=== PATIENT | male | born 1970 | race Caucasian/White ===

== ENCOUNTER 2019-04-30 17:01 | Emergency (ER) | payer OTHER, SELFPAY ==
--- NOTE | ~2019-04-30 | XR_ITS ---
XR knee RT 2V 04/30/2019 17:51 Indication: Right knee pain. Possible hyperextension injury. Procedure: 2 views right knee Comparison: No prior studies for comparison. Findings: There is moderate joint effusion. There is prepatellar soft tissue swelling. No acute fract ure or traumatic malalignment. No foreign bodies. Impression: 1: No acute fracture. 2: Moderate joint effusion. Prepatellar soft tissue swelling. Reviewed, dictated and finalized at location A. SPOOLER Impression: 1: No acute fracture. 2: Moderate joint effusion. Prepatellar soft tissue swelling.
[2019-04-30 17:19] VITALS: BP 182/100; PULSE 120; RESP 20; TEMP 36.3; O2SAT 98
[2019-04-30] MEDS: MORPHINE SULFATE 4 MG/ML INJ IV PUSH (17:33)
--- NOTE | 2019-04-30 18:08 | PC.NURSE ---
ERp in to discuss test results c pt. and need for f/u c FMD or ortho Dr. MARTINEZ discussed c pt and f/u instructions given.
--- NOTE | 2019-04-30 18:10 | ED.LOWEXIN ---
HPI - Extremity Injury (Lower) General Chief Complaint: Extremity Injury, Lower Stated Complaint: leg pain Source: patient Limitations: no limitations History of Present Illness HPI Narrative: 49-year-old patient presents with right knee pain and swelling after he misstepped coming down a ladder causing inversion of his right knee, currently unable. able to bear weight as having tenderness with palpation and with movement of the wrist swelling with the arm medial aspect of his right knee, rates his pain at 10/10 MD complaint: knee injury Onset (ago): hour(s) Injury: Right: knee Type of Injury: inversion and eversion Place: home Severity: severe Severity scale (1-10): >10 Relieving factors: cold therapy, immobilization and rest Exacerbating factors: weight bearing, movement and palpation Context: fall Associated symptoms: swelling and unable to bear weight Related Data Allergies Allergy/AdvReac Type Severity Reaction Status Date / Time bees Allergy Unknown severe Uncoded 09/24/16 16:04 swelling Review of Systems Review of Systems: All systems reviewed & are unremarkable except as noted in HPI and below PMFSH Past Medical History Medical History HTN (hypertension) Social History Social History Smoking packs per day: 1 Smoking cigarettes per day: 20.0 Smoking status: Current every day smoker Alcohol intake: current Alcohol use details: drinks 12 beers/day Substance use: never Living arrangements: with family Exam Const: General: no acute distress and alert Nutritional Appearance: well nourished Orientation/consciousness: patient oriented x3 HENMT: Head: normal to inspection Eyes: Conjunctivae: conjunctivae normal Pupils: Equal, round and reactive pupils present Neck: Neck: normal visual inspection and no lymphadenopathy Resp: Effort & Inspection: normal respiratory effort Cardio: Rate: regular rate Rhythm: regular rhythm GI: GI Palp: Yes Soft to palpation Skin: General skin exam: normal color Rashes: no rashes Neuro: General: patient oriented x3 Extrem: Other: right knee pain with some lateral and medial movement and with extension with medial swelling point tenderness Psych: Mental Status: mental status grossly normal Course Vital Signs Vital signs: Vital Signs Temperature 36.3 C L 04/30/19 17:19 Pulse Rate 120 H 04/30/19 17:19 Respiratory Rate 20 04/30/19 17:19 Blood Pressure 182/100 H 04/30/19 17:19 Pulse Oximetry 98 04/30/19 17:19 Temperature 36.3 C L 04/30/19 17:19 Pulse Rate 120 H 04/30/19 17:19 Respiratory Rate 04/30/19 17:19 Blood Pressure 182/100 H 04/30/19 17:19 Pulse Oximetry 98 04/30/19 17:19 Critical Care Time Critical Care Time Critical Care Time: No Discharge Plan Discharge Clinical Impression: Strain of right knee and leg Qualifiers: Encounter type: initial encounter Qualified Code(s): S86.911A - Strain of unspecified muscle(s) and tendon(s) at lower leg level, right leg, initial encounter Patient Disposition: Home, Self-Care Condition: Stable Instructions: Antibiotic Form, Knee Sprain (ED) Additional Instructions: follow-up with primary care physician within the next 2 to 3 days for further evaluation and treatment. A keep leg elevated can apply ice to affected knee take medicine as prescribed. Prescriptions: New oxycodone-acetaminophen [Percocet] 5-325 mg tablet 1 tablet PO Q6H PRN (Reason: pain) Qty: 20 RF: 0 Follow-up/Referrals: PHYSICIAN NOT ON STAFF,NONSTAFF [Primary Care Provider] - Time of Disposition: 18:16
[2019-04-30] MEDS: HYDROMORPHONE HCL 2 MG/ML VIAL IV PUSH (18:20)
[2019-04-30 18:32] VITALS: BP 160/89; PULSE 82; RESP 18; O2SAT 98
--- NOTE | 2019-04-30 18:35 | PC.NURSE ---
Pt. reports feeling itchy p given Dilaudid. Order obtained from ERP. Pt. reports it helped c pain, but now feels very itchy .
== END 2019-04-30 19:05 | disposition home or self-care (01) ==
PROVIDERS: Emergency Provider Emergency Medicine
DX: S86.911A Strain of unspecified muscle(s) and tendon(s) at lower leg level, right leg, initial encounter (principal); X58.XXXA Exposure to other specified factors, initial encounter
CPT/HCPCS: 73560; 96374; 96375; 99283; 99284; J1170; J1200; J2270; L1830

== ENCOUNTER 2019-05-15 16:20 | Outpatient (CLI) | payer OTHER, SELFPAY ==
--- NOTE | ~2019-05-15 | MR_ITS ---
EXAMINATION: MR knee RT wo/w con DATE: 05/15/2019 18:22 INDICATION: Right knee pain TECHNIQUE: Magnetic resonance imaging (MRI) of the right knee was performed without intravenous contr ast. Sequences included coronal PD-weighted FSE, coronal PD-weighted FS FSE, sagittal T2-weighted FS E, sagittal PD-weighted FS FSE, pre and postcontrast sagittal T1-weighted FS FSE, axial PD weighted f at saturated FSE and postcontrast axial T1-weighted FS FSE. COMPARISON: None. FINDINGS: Motion artifact or blurring to some degree on the coronal and noncontrast enhanced sagittal sequences which mildly limits evaluation, particularly of the articular cartilage. Medial compartment: Complex tear of the meniscus contacting the inferior articular surface at the posterior horn but this includes a longitudinal oblique tear plane. Partial-thickness cartilage loss along the posterior maile ghtbearing medial femoral condyle. Lateral compartment: Lateral meniscus is normal. Articular cartilage is normal. Patellofemoral compartment: Small region of partial-thickness chondral ulceration at the central aspect of the medial trochlea. D eep chondral ulceration with full-thickness fissuring along the inferomedial margin of the medial pat ellar facet. Tiny focus of underlying subarticular edema. Ligaments and tendons: Anterior and posterior cruciate ligaments are normal. The medial collateral ligament and fibular anayeli ateral ligament complex are normal. The extensor mechanism is normal. The visualized medial and later al hamstring tendons as well as the iliotibial band are normal. Fluid: Moderate-sized knee joint effusion. No loose osteochondral bodies identified. Small to moderate-sized Castro's cyst measuring 4.5 x 1.8 x 1.1 cm in maximal dimensions. Osseous/other: Prominent marrow edema and enhancement along the low signal intensity nondisplaced fracture lines ext ending within the intramedullary space underlying the lateral tibial plateau and intercondylar eminen ce. There appears to be involvement without displacement or incongruity of the nonarticular cortex at mid anterior aspect of the proximal tibia. Marrow edema without discrete fracture line consistent wi th bone contusions along the distal side of the physis extending across the femoral condyles. No path ologic marrow replacing process. IMPRESSION: 1. Mildly comminuted nondisplaced primarily intramedullary impaction fractures at the proximal right tibia and bone contusion along the physis of the medial and lateral femoral condyles. 2. Complex tear at the posterior horn of the medial meniscus with mild osteoarthritis in the medial c ompartment. 3. Small regions of moderate to high-grade chondromalacia at the medial trochlea and lateral patellar facet. 4. Likely reactive moderate sized right knee joint effusion. 5. Moderate-sized Castro's cyst. Reviewed, dictated and finalized at location A. NCILIATION CLERK IMPRESSION: 1. Mildly comminuted nondisplaced primarily intramedullary impaction fractures at the proximal right tibia and bone contusion along the physis of the medial a nd lateral femoral condyles. 2. Complex tear at the posterior horn of the medial meniscus with mild osteoart hritis in the medial compartment. 3. Small regions of moderate to high-grade chondromalacia at the medial trochle a and lateral patellar facet. 4. Likely reactive moderate sized right knee joint effusion. 5. Moderate-sized Castro's cyst.
--- NOTE | ~2019-05-15 | XR_ITS ---
EXAMINATION: XR knee RT min 4V DATE: 05/15/2019 17:01 INDICATION: Right knee pain TECHNIQUE: Four views of the right knee were obtained. COMPARISON: None. FINDINGS: Alignment is normal. There is lucency in the medial tubercle of the intercondylar eminence of the tibia. No additional suspected fracture is identified. A moderate size knee joint effusion is present. Soft tissues are unremarkable. IMPRESSION: 1. Likely nondisplaced fracture of the medial tubercle of the intercondylar eminence of the tibia wit h moderate size joint effusion. Reviewed, dictated and finalized at location A. ENT SERVICE SPECIALIST IMPRESSION: 1. Likely nondisplaced fracture of the medial tubercle of the intercondylar mesha nence of the tibia with moderate size joint effusion.
[2019-05-15 17:18] LABS: Estimated Glomerular Filt Rate > 60
[2019-05-21 06:51] LABS: Blood Urea Nitrogen < 3 mg/dL (9-20)
== END 2019-05-15 16:21 | disposition home or self-care (01) ==
LOC: ANHIMG 16:25
PROVIDERS: Visit Provider Orthopaedic Surgery
DX: M25.461 Effusion, right knee (principal); M71.21 Synovial cyst of popliteal space [Baker], right knee; S83.231A Complex tear of medial meniscus, current injury, right knee, initial encounter; X58.XXXA Exposure to other specified factors, initial encounter
CPT/HCPCS: 73564; 73723; A9577

== ENCOUNTER 2019-07-19 14:33 | Emergency (ER) | payer SELFPAY ==
--- NOTE | ~2019-07-19 | XR_ITS ---
EXAMINATION: XR foot LT min 3V DATE: 07/19/2019 15:44 INDICATION: Swelling and tenderness at the metatarsals of the left foot. TECHNIQUE: Dorsoplantar, two oblique and lateral views of the left foot were obtained. COMPARISON: None. FINDINGS: Soft tissue swelling at the dorsal aspect of the forefoot. Bone alignment is normal. No fracture. Mil d osteoarthritis with relatively preserved joint space but tiny marginal osteophytes at the first met atarsophalangeal joint. Remaining joint spaces appear relatively preserved. No cortical erosions or p eriosteal reaction. IMPRESSION: 1. Mild osteoarthritis at the first metatarsophalangeal joint. No acute osseous abnormality. Reviewed, dictated and finalized at location A.
[2019-07-19 14:41] VITALS: BP 152/93; PULSE 130; RESP 20; TEMP 36.7; O2SAT 96
--- NOTE | 2019-07-19 15:20 | ED.EXTPRO ---
HPI - Extremity Problem General Chief complaint: Extremity Problem,Nontraumatic Stated complaint: left foot pain to thigh Source: patient Mode of arrival: ambulatory Limitations: no limitations History of Present Illness HPI Narrative: 49 y.o. male c/o swelling of his left foot and leg x 4 - 5 days with associated minor dorsal foot tenderness. He stubbed a left foot toe the day prior to onset. Today he developed discomfort described as soreness, #2-3/10 in the left medial proximal thigh. Nothing changes his thigh discomfort. Laying supine decreases the swelling; standing makes it worse. He denies chest pain/shortness of breath. There is no personal or family hx of blood clots. He has not seen a doctor in 3 -4 years (although had a colonoscopy a year ago which showed a few small benign lesions - per patient) His fiance's father recently from a P.E.; she brought pt. in to be checked out. He has a long hx of daily alcohol abuse. He injured his right knee in late April resulting in limping for about 6 weeks. He hasn't worked since April; pretty much just sits around and drinks . No recent travel. Hx of hypertension and tachycardia. Had been on lisinopril 20 mg daily. Stopped for no good reason 1 year ago. Related Data Allergies Allergy/AdvReac Type Severity Reaction Status Date / Time No Known Allergies Allergy Verified 07/19/19 14:50 Review of Systems Constitutional: Constitutional: Denies chills and Denies fever(s) Cardiovascular: Cardiovascular: Denies radiating jaw, neck or arm pain Respiratory: Comments: chronic daily cough productive of clear sputum; no recent change. Gastrointestinal: Comments: chronic diarrhea. No recent change. Genitourinary: Comments: Periodic problems with urinary hesitancy Musculoskeletal: Comments: Right knee pain - stable Integumentary/Breasts: Skin/Breast: Denies rash PMFSH Past Medical History Medical History (Updated 07/19/19 @ 17:03 by Paolo Herbert MD) Alcohol abuse Elevated liver function tests Fatty liver Hypertension Nicotine dependence Family History Family History (Updated 07/19/19 @ 15:47 by Paolo Herbert MD) Father Colon polyp Mother Colon polyp Social History Social History (Updated 07/19/19 @ 15:48 by Paolo Herbert MD) Smoking status: Current every day smoker Tobacco type: cigarettes Alcohol intake: current Drinks per week: 50 Alcohol use details: Over 10 drinks daily including beer and whiskey. Gender identity (if verbalized by the patient): Male Exam Narrative: Exam Narrative: Sitting up in bed. Moves about without hesitation or apparent pain. Const: General: no acute distress Nutritional Appearance: obese HENMT: Mouth: Yes moist mucous membranes Eyes: Other: no scleral icterus Neck: Neck: no lymphadenopathy Chest: Chest palpation & inspection: normal inspection of the chest Resp: Effort & Inspection: not tachypneic Auscultation: clear to auscultation bilaterally Cardio: Rate: tachycardic Rhythm: regular rhythm GI: Inspection: distended GI Palp: Yes Tenderness to palpation present (GI) (tender right mid-clavicular subcostal region. ), No Guarding due to palpation present (GI), No Rigid due to palpation, No Hernia present and No Rebound tenderness present Percussion: Yes normal to percussion Auscultation: Hypoactive bowel sounds present Other: liver percusses 3 cm subcostal , mid-clavicular line. No palpable mass Back/Spine/Pelvis: Back: no CVA tenderness Skin: Rashes: no rashes Neuro: General: patient oriented x3 and moves all extremities Extrem: Other: 2+ left pretibial edema 3+ pedal edema. Tender along the proximal 1/4 of the right adductor muscles. No overlying redness or swelling. No inguinal nodes or tendernesss. no posterior thigh or calf swelling, cords or tenderness. Minor tenderness over distal anterior tibia. Psych: Appearance: grossly normal Mental Status: mental status g
--- NOTE | 2019-07-19 15:45 | PC.NURSE ---
Water provided to pt per verbal order Dr Herbert. HR rechecked, remains 130. Pt states my heart rate is always high, like over [address] Dr Herbert aware.
[2019-07-19 16:00] LABS: Hematocrit 41.3 % (40.0-54.0); Hemoglobin 14.8 g/dL (14.0-18.0); Mean Corpuscular HGB Conc 35.8 g/dL (32.0-36.0); Mean Corpuscular Hemoglobin 38.7 pg (27.0-31.0); Mean Corpuscular Volume 108.1 fL (78.0-102.0); Mean Platelet Volume 8.9 fl (8.7-11.0); Platelet Count Result 171 K/mm3 (150-420); Red Blood Count 3.82 M/mm3 (4.70-6.10); Red Cell Distribution Width 15.9 % (11.6-14.4); White Blood Count 8.4 K/mm3 (4.8-10.8)
[2019-07-19 16:17] LABS: INR 1.2; Partial Thromboplastin Time 27.5 SEC (22.3-31.6); Prothrombin Time 12.6 Seconds (9.64-11.0)
[2019-07-19 16:18] LABS: Alanine Aminotransferase 71 U/L (16-63); Albumin Level 3.3 g/dL (3.4-5.0); Alkaline Phosphatase 174 U/L (46-116); Aspartate Amino Transferase 167 U/L (15-37); Bilirubin,Total 0.9 mg/dL (0.00-1.00); Blood Urea Nitrogen 2 mg/dL (7-18); Calcium 8.4 mg/dL (8.5-10.1); Carbon Dioxide 27 mmol/L (21-32); Chloride 97 mmol/L (98-108); Estimated CRCL calculation 115 ml/min; Estimated Glomerular Filt Rate > 60; Glucose 109 mg/dL (70-99); Osmolality Calculated 279 mOsm/kg (285-295); Sodium 136 mmol/L (136-145); Total Protein 6.8 g/dL (6.4-8.2)
[2019-07-19 16:35] LABS: D Dimer 1.67 mg/L (0.19-0.50)
[2019-07-19 16:40] VITALS: BP 181/115; PULSE 122; RESP 20; O2SAT 96
--- NOTE | 2019-07-19 16:41 | PC.NURSE ---
Pt states my blood pressure has been running 180/120 lately . Previously reported noncompliance with HTN medications.
[2019-07-19 16:44] LABS: Magnesium 2.1 mg/dL (1.8-2.4)
[2019-07-19] MEDS: POTASSIUM CHLORIDE 20 MEQ TABLET 40 MEQ PO (16:59)
[2019-07-19] MEDS: APIXABAN 2.5 MG TABLET 10 MG PO (16:59)
[2019-07-19 17:20] VITALS: BP 184/124; PULSE 124; RESP 20; O2SAT 97
--- NOTE | 2019-07-19 17:29 | PC.NURSE ---
BP 184/124 at time of discharge. Pt instructed to take previously prescribed Lisinopril that he has at home once he returns to his house. MD gill.
== END 2019-07-19 17:20 | disposition home or self-care (01) ==
PROVIDERS: Emergency Provider Family Medicine
DX: R79.1 Abnormal coagulation profile (principal); M79.89 Other specified soft tissue disorders; I10 Essential (primary) hypertension
CPT/HCPCS: 36415; 73630; 80053; 83735; 85027; 85380; 85610; 85730; 99283; 99284; A9270

== ENCOUNTER 2019-07-20 08:24 | Outpatient (CLI) | payer SELFPAY ==
--- NOTE | ~2019-07-20 | US_ITS ---
EXAMINATION: US venous doppler [facility] DATE: 07/20/2019 09:12 INDICATION: Left lower limb pain and swelling TECHNIQUE: Grayscale ultrasound images without and with compression and Doppler ultrasound images of the left lower extremity veins were obtained. COMPARISON: 02/12/2017 FINDINGS: The visualized portions of left common femoral vein, profunda (deep) femoral vein, femoral vein, popl iteal vein, peroneal veins, posterior tibial veins, gastrocnemius vein and greater saphenous vein out flow are patent. IMPRESSION: 1. No deep venous thrombosis in the left lower limb. Reviewed, dictated and finalized at location A.
== END 2019-07-20 08:25 | disposition home or self-care (01) ==
PROVIDERS: Visit Provider Family Medicine
DX: M79.89 Other specified soft tissue disorders (principal)
CPT/HCPCS: 93971; A9270

== ENCOUNTER 2019-07-22 08:26 | Outpatient (CLI) | payer SELFPAY ==
--- NOTE | ~2019-07-22 | US_ITS ---
EXAMINATION: US right upper quadrant DATE: 07/22/2019 09:17 INDICATION: Alcoholic fatty liver. Elevated liver enzymes. TECHNIQUE: Multiple grayscale and Doppler ultrasound images of the abdomen were obtained. COMPARISON: CT dated 01/14/2019 and abdominal ultrasound dated 02/12/2017 FINDINGS: Region of the pancreas is not clearly visualized. Liver has normal contour, with a smooth surface. Th ere is increased parenchymal echogenicity and coarsened echotexture consistent with diffuse hepatic s teatosis. No liver lesion identified although sensitivity is decreased by poor acoustic penetration d ue to the hepatic steatosis. No intrahepatic biliary duct dilation suspected. Portal venous flow was seen in the hepatopetal, normal direction and has normal Doppler waveform. The gallbladder is mildly dilated with mild wall thickening. There is no cholelithiasis. The common bile duct measures 8 mm, which is mildly dilated. IMPRESSION: 1. Diffuse hepatic steatosis. 2. Mildly dilated gallbladder with mild wall thickening but without cholelithiasis or sonographic Mur phy sign to suggest acute cholecystitis this could be related to either chronic liver disease or othe r generalized edema forming states. 3. Mildly dilated common bile duct which measures up to 8 mm both without intrahepatic biliary ductal dilation. No evident obstructing stone or mass. If clinically indicated MRCP could be obtained for f urther evaluation. Reviewed, dictated and finalized at location A. IMPRESSION: 1. Diffuse hepatic steatosis. 2. Mildly dilated gallbladder with mild wall thickening but without cholelithia sis or sonographic Elizabeth sign to suggest acute cholecystitis this could be rel ated to either chronic liver disease or other generalized edema forming states. 3. Mildly dilated common bile duct which measures up to 8 mm both without intra hepatic biliary ductal dilation. No evident obstructing stone or mass. If clini raymond indicated MRCP could be obtained for further evaluation.
== END 2019-07-22 08:27 | disposition home or self-care (01) ==
LOC: CHSIMG 08:27
PROVIDERS: PCP Nurse Practitioner Family; Visit Provider Nurse Practitioner Family
DX: K70.0 Alcoholic fatty liver (principal)
CPT/HCPCS: 76705

== ENCOUNTER 2019-08-05 16:07 | Inpatient (IN) | payer MEDICAID, SELFPAY ==
--- NOTE | ~2019-08-05 | US_ITS ---
EXAMINATION: US paracentesis abd w/image EXAM DATE: 08/05/2019 19:09 INDICATION: Ascites. TECHNIQUE: The procedure and its risks and benefits were discussed with the patient. Alternatives als o discussed. Potential risks discussed included bleeding and infection. The skin was prepped and drap ed in sterile fashion. 5 cc of 1% lidocaine was used for local anesthesia. Under ultrasound guidance, a 5 Fr catheter with trochar was advanced into the ascites in the left lower quadrant. Fluid was asp irated into vacuum bottles. A total of 1750 mL straw colored fluid was taken in total. The catheter was removed, and a dressing was applied. There were no immediate complications. FINDINGS: Ultrasound images demonstrate ascites. IMPRESSION: Status post ultrasound-guided paracentesis. Reviewed, dictated and finalized at location A.
--- NOTE | ~2019-08-05 | CT_ITS ---
EXAMINATION: CT chest abdomen pelvis w con DATE: 08/06/2019 13:25 INDICATION: COPD. Cirrhosis and ascites with abdominal swelling. TECHNIQUE: Computed tomography (CT) of the chest, abdomen, and pelvis was performed with 100 mL Omnip aque-350 intravenous contrast. Automated exposure control and iterative reconstruction technique were employed. The dose-length product was 1115.01 mGy-cm. COMPARISON: CT abdomen and pelvis dated 01/14/2019 and chest dated 02/12/2017 FINDINGS: CHEST CT: Mild right basilar atelectasis. Additional mild discoid atelectasis in the right upper lobe. No pneum onia or other pulmonary infiltrates, pulmonary edema, pleural effusion or pneumothorax. Heart size is normal. Atherosclerotic coronary artery calcifications. No pericardial effusion. Thoracic aorta is n ormal in caliber with no dissection. No pathologically enlarged thoracic lymphadenopathy. ABDOMEN/PELVIS CT: Diffuse hepatic steatosis along with fine nodular liver surface consistent with cirrhosis. Small phry lonny cap at the fundus of the gallbladder. Spleen, pancreas, bilateral adrenal glands and kidneys are normal. Small amount of diffuse ascites throughout the abdomen and pelvis. Bowels including the appe ndix are normal. No abscess or free intraperitoneal gas. No pathologically enlarged abdominal or pelv ic lymphadenopathy. There is fusion at the anterior T10-T11 disc space which may be developmental. Se justine spondylosis at the lumbosacral junction. IMPRESSION: 1. Mild atelectasis in the right lung. No acute cardiopulmonary disease. 2. Cirrhosis with small amount of ascites throughout the abdomen and pelvis. Reviewed, dictated and finalized at location A.
--- NOTE | ~2019-08-05 | XR_ITS ---
EXAMINATION: XR chest 2V EXAM DATE: 08/05/2019 16:53 INDICATION: Shortness of air. TECHNIQUE: Frontal and lateral projections of the chest obtained and reviewed. There is no prior re dy for comparison. FINDINGS: Mild cervicothoracic levoscoliosis, mid thoracic dextroscoliosis. Small linear bibasilar op acities most likely subsegmental atelectasis, new compared to prior study. The lungs are otherwise cl ear. There are no pleural effusions. The cardiomediastinal silhouette is within normal limits. The re is no pneumothorax suspected. IMPRESSION: Linear bibasilar opacities most likely scattered subsegmental atelectasis but please clin ically correlate. Reviewed, dictated and finalized at location A. IMPRESSION: Linear bibasilar opacities most likely scattered subsegmental atele ctasis but please clinically correlate.
[2019-08-05 16:11] VITALS: BP 166/115; PULSE 115; RESP 20; TEMP 36.9; O2SAT 96
[2019-08-05 16:16] VITALS: PULSE 115
--- NOTE | 2019-08-05 16:25 | PC.NURSE ---
Patient reports that he usually drinks 12 or more drinks per day. He reports that he has had four drinks today (alcohol and beer) with last intake at 1300 today.
[2019-08-05 16:30] VITALS: BP 157/104; PULSE 117; RESP 21; O2SAT 99
[2019-08-05 16:44] LABS: Basophils Absolute Auto 0.1 K/mm3 (0.0-0.1); Basophils Percent Auto 0.6 % (0.2-1.2); Eosinophils Percent Auto 0.4 % (0-4.4); Hematocrit 41.7 % (42.0-52.0); Hemoglobin 14.9 g/dL (14.0-18.0); Immature Granulocyte Absolute 0.05 K/mm3 (0.00-0.031); Immature Granulocyte Percent A 0.5 % (0-0.5); Lymphocytes Absolute Auto 1.39 K/mm3 (0.9-3.2); Lymphocytes Percent Auto 12.9 % (18.3-44.2); Mean Corpuscular HGB Conc 35.7 g/dl (32-36); Mean Corpuscular Hemoglobin 39.3 pg (26-34); Monocytes Absolute Auto 0.8 K/mm3 (0.1-0.6); Monocytes Percent Auto 7.1 % (2.6-8.5); Neutrophils Absolute Auto 8.5 K/mm3 (1.3-6.7); Neutrophils Percent Auto 78.5 % (45.5-73.1); Platelet Count Result 199 k/mm3 (150-375); Red Blood Count 3.79 M/mm3 (4.6-6.20); Red Cell Distribution Width 14.1 % (11.5-14.5); White Blood Count 10.8 K/mm3 (4.5-10.0)
--- NOTE | 2019-08-05 16:49 | ED.GENADULT ---
HPI - General Adult General Chief complaint: Unspecified Stated complaint: swelling to abd and legs Time Seen by Provider: 08/05/19 16:23 History of Present Illness HPI narrative: Patient is a 49-year-old male who presents the ER with abdominal bloating and lower extremity swelling. Patient reports he is an alcoholic he drinks 12 alcoholic drinks a day. He reports he has had 3-4 today. Reports he is being worked up by his primary care doctor for liver issues. However he is gained 40 pounds recently and the edema is causing him discomfort and fatigue. He has mild shortness of breath with positional change movement. Related Data Home Medications Medication Instructions Recorded Confirmed hydrocodone-acetaminophen 08/05/19 lisinopril 20 mg PO DAILY 08/05/19 Allergies Allergy/AdvReac Type Severity Reaction Status Date / Time bees Allergy Unknown severe Uncoded 08/05/19 16:16 swelling Review of Systems Review of Systems: All systems reviewed & are unremarkable except as noted in HPI and below Constitutional: Constitutional: Denies chills, Denies fatigue, Denies fever(s) and Denies weakness ENT: Denies nasal congestion and Denies sore throat Cardiovascular: Cardiovascular: Denies chest pain and Denies radiating jaw, neck or arm pain Respiratory: Respiratory: Denies cough, Reports dyspnea and Denies wheezing Gastrointestinal: Gastrointestinal: Reports abdominal pain (Right upper quadrant), Denies diarrhea, Denies nausea and Denies vomiting Musculoskeletal: Comments: Lower extremity edema PMFSH Past Medical History Medical History (Updated 08/05/19 @ 17:57 by Tarun Barron MD) Diarrhea HTN (hypertension) Tobacco dependence Urinary frequency Vision abnormalities Surgical History Surgical History (Updated 08/05/19 @ 16:51 by Tarun Barron MD) No significant past surgical history Social History Social History Smoking packs per day: 1 Smoking cigarettes per day: 20.0 Smoking status: Current every day smoker Alcohol intake: current Drinks per week: 20 Substance use: never Gender identity (if verbalized by the patient): Male Exam Narrative: Exam Narrative: GENERAL: Well-appearing, well-nourished, and in no acute distress. HEAD: Normocephalic, atraumatic. EYES: PERRLA and EOMI. ENT: Mucous membranes moist. CHEST: Clear to auscultation. No respiratory distress. HEART: Regular rate and rhythm. Normal peripheral pulses. ABDOMEN: Somewhat firm distended abdomen that is tender to palpation right upper quadrant without guarding, normal active bowel sounds. EXTREMITIES: Normal range of motion. 3+ edema. SKIN: Warm, dry, no rash. NEURO: Alert and oriented x3. Course Course Emergency Course: Admit to hospitalist service. Will have Dr. Lunsford consulted as patient has had a colonoscopy performed by him in the past. Patient stable and Lasix will be ordered for diuresis. A diagnostic/therapeutic paracentesis has been ordered. Vital Signs Vital signs: Vital Signs Temperature 98.5 F 08/05/19 16:11 Pulse Rate 115 H 08/05/19 16:11 Respiratory Rate 20 08/05/19 16:11 Blood Pressure 166/115 H 08/05/19 16:11 Pulse Oximetry 96 08/05/19 16:11 Temperature 98.5 F 08/05/19 16:11 Pulse Rate 117 H 08/05/19 16:30 Respiratory Rate 21 H 08/05/19 16:30 Blood Pressure 157/104 H 08/05/19 16:30 Pulse Oximetry 99 08/05/19 16:30 Medical Decision Making Vital Signs Vital Signs: Vital Signs Temperature 98.5 F 08/05/19 16:11 Pulse Rate 115 H 08/05/19 16:11 Respiratory Rate 20 08/05/19 16:11 Blood Pressure 166/115 H 08/05/19 16:11 Pulse Oximetry 96 08/05/19 16:11 Temperature 98.5 F 08/05/19 16:11 Pulse Rate 117 H 08/05/19 16:30 Respiratory Rate 21 H 08/05/19 16:30 Blood Pressure 157/104 H 08/05/19 16:30 Pulse Oximetry 99 08/05/19 16:30 Lab Data Result diagrams:
[2019-08-05 16:51] LABS: INR 1.3; Prothrombin Time 15.6 Seconds (11.1-14.7)
[2019-08-05 16:52] LABS: Partial Thromboplastin Time 31.7 SECONDS (22.3-36.8)
[2019-08-05 17:00] LABS: Alanine Aminotransferase 44 U/L (4-50); Albumin Level 3.6 g/dL (3.5-5.1); Alkaline Phosphatase 180 U/L (38-126); Aspartate Amino Transferase 112 U/L (17-59); Bilirubin,Total 1.7 mg/dL (0.2-1.3); Carbon Dioxide 31 mmol/L (22-30); Chloride 83 mmol/L (98-107); Estimated CRCL calculation 160 ml/min; Estimated Glomerular Filt Rate > 60; Glucose 98 mg/dL (75-110); Potassium 3.6 mmol/L (3.4-5.0); Sodium 123 mmol/L (137-145)
[2019-08-05 17:03] LABS: Blood Urea Nitrogen < 2 mg/dL (9-20)
[2019-08-05 17:22] LABS: Ammonia < 9 umol/L (9-30)
[2019-08-05 17:50] VITALS: BP 140/104; PULSE 114; RESP 18; TEMP 36.7; O2SAT 97
--- NOTE | 2019-08-05 18:35 | PC.NURSE ---
Patient still in ultrasound for paracentisis
[2019-08-05 19:00] VITALS: BP 167/102; PULSE 118; RESP 20; O2SAT 97
[2019-08-05] MEDS: FUROSEMIDE INJ 40 MG/4 ML VIAL IV PUSH (19:02)
--- NOTE | 2019-08-05 19:02 | PC.NURSE ---
Patient back from ultrasound at this time
--- NOTE | 2019-08-05 19:15 | ADMGEN ---
This patient, Kinsey Rivera, was admitted to Medical Room 256-. Patient/family oriented to hospital policies and general routines including ID bracelet, bed and alarms, visiting hours, pain management, procedures, bathroom and other care routines, personal items, smoking policy, room service/diet, and visiting hours. Valuables list has been completed. Information on how to activate the Rapid Response Team has been discussed. Patient/Family are encouraged to report perceived risks to care and to ask questions if they do not understand what they are told or what they should do.
[2019-08-05 20:00] VITALS: BP 155/101; PULSE 130; RESP 22; TEMP 36.7; O2SAT 95; BMI 31.7
[2019-08-05 20:24] LABS: Appearance Peritoneal Fluid Hazy (Clear); Color Peritoneal Fluid Yellow (Colorless); Source Peritoneal Fluid Peritoneal Fluid
[2019-08-05 20:25] LABS: Lymphocytes Peritoneal Fluid 5 %; Macrophages Peritoneal Fluid 71 %; Mesothelial Cells Peritoneal Fluid 4 %; Monocytes Peritoneal Fluid 13 %; Neutrophils Peritoneal Fluid 7 % (0-25); Nucleated Cells Peritoneal Flu 848 /uL (0-500); RBC Peritoneal Fluid 367 /uL (0-100000)
--- NOTE | 2019-08-05 21:50 | PM.IMHP ---
H&P: HPI History of Present Illness Chief complaint: Abdominal swelling Narrative: Date and time of patient contact: 08/05/2019 at 9:50 p.m. Kinsey Rivera is a 49 year old male with a past medical history of alcoholic cirrhosis and chronic tobacco use who presented to the ER via private vehicle due to abdominal swelling. Patient reports that he has had a 40 lb weight gain in the last month or extremity swelling and abdominal swelling. He reports that his abdomen became so swollen that he was having trouble getting a deep breath. He had a paracentesis with removal of 2 L of fluid earlier today. He reports he has a chronic smoker's cough but his cough is not changed or increased recently. Cough is nonproductive. He has not been having any fevers or chills. He does report infrequent episodes of nausea with a small amount of emesis of gastric acid some mornings. He reports that he has frequent loose stools. He has continued to drink alcohol heavily. He has drank more heavily over the last 3 months because he is on a workman's comp due to her knee injury. He has been on leave from work to a right medial meniscal tear and his surgery has been postponed due to the COVID-19 pandemic. He reports that he last drank alcohol at 1:00 p.m. on the . He has had a prior episodes of alcohol withdrawal but denies ever having had to be hospitalized for withdrawal symptoms. He denies noticing any jaundice. He denies any chest pain. Patient denies abdominal pain. He reports that his legs in abdomen just feel tight from being stretched. He has not taken spironolactone for a long time. Review of Systems Review of Systems: Narrative: 12 systems were reviewed with pertinent positives and negatives per HPI. Except as documented in the HPI, all other systems were reviewed and are negative. [facility] Past Medical History Medical History (Updated 08/06/19 @ 03:47 by Jennifer Kumari DO) Alcoholic cirrhosis of liver Anal fissure August 2016 Diarrhea Diastolic dysfunction Noted on echocardiogram from 2017 Essential hypertension Hemorrhoids Hypertrophic cardiomyopathy Noted on echocardiogram 2016 Tear of medial meniscus of right knee, current Tobacco dependence Urinary frequency Vision abnormalities Surgical History Surgical History (Updated 08/06/19 @ 03:48 by Jennifer Kumari DO) History of colonoscopy with polypectomy August [address] Lunsford demonstrated internal hemorrhoids with stigmata of bleeding, 1 colon polyp, and acute anal fissure Family History Family History (Updated 08/06/19 @ 03:34 by Jennifer Kumari DO) Father Hypertension Sibling Alcohol abuse 3 brothers Social History Social History (Updated 08/06/19 @ 03:37 by Jennifer Kumari DO) Social History: Primary care provider: Zoë Swan [employer] TESTER Code status: Full code Smoking packs per day: 1 Smoking cigarettes per day: 20.0 Years smoked: 25 Smoking pack-years: 25.00 Smoking status: Current every day smoker Tobacco type: cigarettes Alcohol intake: current Drinks per week: 60 Alcohol use details: He has drank alcohol to excess for at least the last 10 years. He has lost multiple jobs due to alcoholism. 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 He is currently on leave from his job due to workman's comp over right knee injury. Gender identity (if verbalized by the patient): Male Spiritual care concerns: No Agree to blood products: Yes Meds Home Medications and Allergies Home Medications Medication Instructions Recorded Confirmed Type hydrocodone-acetaminophen 1 tablet PO Q6H PRN 08/05/19 08/05/19 History lisinopril 20 mg PO DAILY 08/05/19 08/05/19 History Allergies Allergy/AdvReac Type
[2019-08-06] VITALS (12 sets, daily range): BP systolic 111–159; BP diastolic 78–93; PULSE 93–121; RESP 16–22; TEMP 36.3–36.9; O2SAT 91–100
[2019-08-06 05:30] LABS: Hematocrit 37.3 % (42.0-52.0); Hemoglobin 13.2 g/dL (14.0-18.0); Mean Corpuscular HGB Conc 35.4 g/dl (32-36); Mean Corpuscular Hemoglobin 38.4 pg (26-34); Mean Corpuscular Volume 108.4 fl (80-100); Mean Platelet Volume 9.1 fl (7.4-10.4); Platelet Count Result 160 k/mm3 (150-375); Red Blood Count 3.44 M/mm3 (4.6-6.20); Red Cell Distribution Width 13.9 % (11.5-14.5)
[2019-08-06 05:35] LABS: Blood Urea Nitrogen 3 mg/dL (9-20); Calcium 7.5 mg/dL (8.4-10.2); Carbon Dioxide 33 mmol/L (22-30); Chloride 89 mmol/L (98-107); Estimated CRCL calculation 137 ml/min; Estimated Glomerular Filt Rate > 60; Glucose 94 mg/dL (75-110); Phosphorus 3.1 mg/dL (2.5-4.5); Potassium 3.7 mmol/L (3.4-5.0); Sodium 125 mmol/L (137-145)
[2019-08-06] MEDS: FUROSEMIDE INJ 40 MG/4 ML VIAL IV PUSH ×2 (06:28→17:07)
[2019-08-06 06:38] LABS: Folic Acid 2.8 ng/mL (2.76->20)
--- NOTE | 2019-08-06 07:20 | WPDGICN ---
GI Consult Note Consult date/time: 08/06/19 07:20 Reason for consultation ascites. This very pleasant gentleman was seen in consultation at the request of the hospitalist and with the patient's permission. Impression: Ascites. This is most likely due to underlying alcoholic cirrhosis/fatty liver disease. Increased AST//ALT ratio compatible with alcohol. Macrocytosis secondary to alcoholism. Active alcohol abuse. Chronic diarrhea. This may be due to IBS with diarrhea. This is most certainly exacerbated by active alcohol abuse. History of serrated adenoma colon polyps. Anal fissure. Hypothyroidism. Hypertrophic cardiomyopathy/diastolic dysfunction. Hypertension. COPD. Tobacco abuse. Recommendation: Diuresis with Aldactone and Lasix. Would discontinue Lasix 1 peripheral edema resides. Avoid salt. Liver workup. CT scan of the abdomen pelvis. Patient encouraged to quit drinking. Continue thiamine, folic acid multiple vitamin. Eventually will require EGD. Will obtain some stool studies. HPI: History: This very pleasant gentleman seen in consultation regarding ascites. The patient was initially evaluated by me back in 2017. At that time he was having episodes of rectal bleeding. He subsequently underwent a colonoscopy. Biopsies revealed nonspecific inflammation. He also had I hyperplastic colon polyp/serrated adenoma. The patient at that time was abusing alcohol and tobacco. He was advised to quit drinking. The patient had no follow-up with me in the office. Patient presents with increasing abdominal girth and a 40 lb weight gain in the last 2 weeks. Reports lower extremity edema. Nausea, vomiting, hematemesis, dysphagia, odynophagia, fever, chills and night sweats or tonight. He does report chronic diarrhea. He may go in small amounts several times per day. He denies any hematochezia, melena or acholic stools. The patient does continue to abuse alcohol. He drinks up to 12 shots of hard liquor per day. Patient does report occasional shortness of breath. He does report a chronic cough. He is having right knee pain. He scheduled for a meniscus surgery. Physical examination: General: very pleasant patient in no acute distress. HEENT: Head was normocephalic sclerae is clear mouth without masses neck was supple. Heart: Rate rhythm regular without S3 or S4. Lungs: Decreased breath sounds bilaterally with expiratory wheezes. Abdomen: Soft with no guarding or rigidity. Bulging flanks and fluid wave. Neurologic: Cranial nerves 2 through 12 intact. No focal defects. No clonus. Musculoskeletal system: Revealed no joint tenderness or swelling no muscle atrophy. Extremities: Edematous. Skin: Warm and dry with normal turgor. Mental status: intact. Patient is alert and oriented. Review of Systems Review of Systems: All systems reviewed & are unremarkable except as noted in HPI and below PMFSH Past Medical History Medical History Adenomatous colon polyp Alcoholic cirrhosis of liver Anal fissure August 2016 Diastolic dysfunction Noted on echocardiogram from 2017 Essential hypertension Hypertrophic cardiomyopathy Noted on echocardiogram 2016 IBS (irritable bowel syndrome) Tear of medial meniscus of right knee, current Tobacco dependence Surgical History Surgical History History of colonoscopy with polypectomy August [address] Lunsford demonstrated internal hemorrhoids with stigmata of bleeding, 1 colon polyp, and acute anal fissure Family History Family History Father Hypertension Sibling Alcohol abuse 3 brothers Social History Social History Social History: Primary care provider: Zoë Swan [employer] INSPECTOR Code status: Full code Smoking packs per day: 1 S
[2019-08-06] MEDS: THIAMINE HCL 100 MG TABLET PO (08:20)
[2019-08-06] MEDS: PANTOPRAZOLE 40 MG TABLET PO (08:20)
[2019-08-06] MEDS: SPIRONOLACTONE 50 MG TABLET PO ×2 (08:20→17:31)
[2019-08-06] MEDS: FOLIC ACID 1 MG TABLET PO (08:20)
[2019-08-06] MEDS: PROPRANOLOL HCL 20 MG TABLET PO ×2 (08:20→21:11)
[2019-08-06] MEDS: lisinopriL 20 MG TABLET PO (08:21)
[2019-08-06] MEDS: ENOXAPARIN 40 MG/0.4 ML SYRINGE SUB-Q (08:22)
[2019-08-06 08:57] LABS: Hematocrit 40.9 % (42.0-52.0); Hemoglobin 14.7 g/dL (14.0-18.0); Mean Corpuscular HGB Conc 35.9 g/dl (32-36); Mean Corpuscular Hemoglobin 39.4 pg (26-34); Mean Corpuscular Volume 109.7 fl (80-100); Platelet Count Result 191 k/mm3 (150-375); Red Blood Count 3.73 M/mm3 (4.6-6.20); Red Cell Distribution Width 14.3 % (11.5-14.5); White Blood Count 7.8 K/mm3 (4.5-10.0)
[2019-08-06 09:11] LABS: Cholesterol 99 mg/dL (0-200); HDL Direct 27 mg/dL; Triglycerides 78 mg/dL (<150)
[2019-08-06 09:13] LABS: Total Triiodothyronine (T3) 0.91 NG/ML (0.97-1.69)
[2019-08-06 09:13] LABS: Alanine Aminotransferase 37 U/L (4-50); Albumin Level 3.4 g/dL (3.5-5.1); Alkaline Phosphatase 158 U/L (38-126); Aspartate Amino Transferase 93 U/L (17-59); Bilirubin,Total 2.4 mg/dL (0.2-1.3); Blood Urea Nitrogen 4 mg/dL (9-20); CRP 2.7 mg/dL (<1.0); Calcium 7.9 mg/dL (8.4-10.2); Carbon Dioxide 30 mmol/L (22-30); Chloride 88 mmol/L (98-107); Estimated CRCL calculation 158 ml/min; Estimated Glomerular Filt Rate > 60; Glucose 124 mg/dL (75-110); Magnesium 1.9 mg/dL (1.6-2.3); Phosphorus 2.9 mg/dL (2.5-4.5); Potassium 3.6 mmol/L (3.4-5.0); Sodium 125 mmol/L (137-145)
[2019-08-06 09:18] LABS: INR 1.2; Prothrombin Time 15.3 Seconds (11.1-14.7)
[2019-08-06 09:22] LABS: LDL Cholesterol Direct 66 mg/dL
[2019-08-06 09:27] LABS: T4 Thyroxine 7.95 ug/dL (5.53-11.0)
[2019-08-06 09:57] LABS: Iron 137 ug/dL (49-181)
[2019-08-06 10:06] LABS: Percent Iron Saturation 56 % (20-50)
[2019-08-06 10:21] LABS: Hepatitis B Surface Antigen Negative (Negative)
[2019-08-06 10:38] LABS: Hepatitis B Surface Anti Res Negative
[2019-08-06] MEDS: NICOTINE (*PBKC) 14 MG PATCH 1 PATCH TRANSDERM (11:23)
--- NOTE | 2019-08-06 17:00 | PM.IMPN ---
Progress Note: A&P Assessment and Plan (1) Alcoholic cirrhosis of liver with ascites: Code(s): K70.31 - Alcoholic cirrhosis of liver with ascites Status: Acute Assessment and Plan: Patient has been initiated on Lasix therapy along with Aldactone and propanolol. Importance of alcohol cessation has been discussed in great detail. By Dr. Fry Status post ultrasound-guided paracentesis by Radiology. The patient 2 L ascitic fluid removed. Awaiting laboratory results. Will monitor for signs and symptoms of alcohol withdrawal. CIWA scores have been ordered every 4 hours. The patient will receive Ativan 1 mg every 4 hours as needed for CIWA scores greater than 8. (2) Tobacco dependence: Code(s): F17.200 - Nicotine dependence, unspecified, uncomplicated Status: Chronic Assessment and Plan: Patient is not interested in smoking cessation education. Will provide a nicotine patch if needed for symptoms of nicotine withdrawal. (3) HTN (hypertension): Code(s): I10 - Essential (primary) hypertension Status: Acute Assessment and Plan: Will resume the patient's home lisinopril. Propanolol was added and pressure drops can decrease ROCK-inhibitor (4) Sinus tachycardia: Code(s): R00.0 - Tachycardia, unspecified Status: Acute Assessment and Plan: The patient reports chronic sinus tachycardia. During prior hospitalizations his heart rate has at times been as low as 80 but for the most part is in the low 100s. TSH actually elevated with and tachy probable from mild withdrawal. Will check echocardiogram in a.m.. (5) Macrocytosis without anemia: Code(s): D75.89 - Other specified diseases of blood and blood-forming organs Status: Acute Assessment and Plan: Likely secondary to alcoholism. b12 anf folate normal Subjective Date/time seen: 08/06/19 17:00 Interval history: Date of visit 08/05. 49-year-old hypertensive white male alcoholic presented with increasing abdominal girth, pedal edema, and malaise.. Had paracentesis and feels somewhat better but still marked edema. Has continued to drink and drinking more recently being laid off work. Exam Narrative: Exam Narrative: Blood pressure 126/78 pulse is 90 irregular afebrile Pupils equal reactive sclera anicteric Lungs are clear CV regular rate rhythm slightly tacky no murmur Abdomen is slightly distended bowel sounds are present Extremities pitting edema to the midthigh bilaterally Neuro alert cooperative pleasant no focal deficits no signs of withdrawal Integument no skin breakdown rashes Objective Data Vital Signs Vital Signs: Vital Signs - 24 hr 08/05/19 17:50 08/05/19 19:00 08/05/19 20:00 Temperature 36.7 C 36.7 C Pulse Rate 114 H 118 H 130 H Respiratory Rate 18 20 22 H Blood Pressure 140/104 H 167/102 H 155/101 H Pulse Oximetry 97 97 95 08/06/19 00:00 08/06/19 04:00 08/06/19 08:00 Temperature 36.9 C 36.3 C L Pulse Rate 121 H 106 H 121 H Respiratory Rate 20 22 H Blood Pressure 159/92 H 111/79 Pulse Oximetry 96 91 08/06/19 08:20 08/06/19 10:00 08/06/19 12:00 Temperature 36.7 C Pulse Rate 106 H 93 93 Respiratory Rate 16 Blood Pressure 126/78 Pulse Oximetry 99 08/06/19 14:00 Temperature 36.8 C Pulse Rate 94 Respiratory Rate 16 Blood Pressure 139/87 Pulse Oximetry 100 Intake/Output Intake/Output: Intake & Output 08/03/19 08/04/19 08/05/19 08/06/19 23:59 23:59 23:59 23:59 Intake Total 690 Output Total 1940 1800 Balance -1939 -1109 Meds/Results Medications: Active Medications Generic Name Dose Route Start Last Admin Trade Name Freq PRN Reason Stop Dose Admin Enoxaparin Sodium 40 mg 08/06/19 09:00 08/06/19 08:22 Lovenox SUB-Q 40 mg DAILY AYESHA Administration Folic Acid 1 mg 08/06/19 09:00 08/06/19 08:20 Folic Acid PO 1 mg DAILY AYESHA Administration Furosemide 40 mg 08/06/19 06:00
[2019-08-06 19:08] LABS: Sodium Urine Random 102 meq/L
[2019-08-07] VITALS (7 sets, daily range): BP systolic 134–140; BP diastolic 74–91; PULSE 85–99; RESP 16–20; TEMP 36.4–36.6; O2SAT 93–98
--- NOTE | 2019-08-07 | ECHO_ITS ---
Patient Info Name: Kinsey Rivera Age: 49 years : 1970 Gender: Male Ht: 72 in Wt: 233 lbs BSA: 2.35 m2 HR: 88 bpm BP: 140 / 87 mmHg Technical Quality: Good Exam Date: 08/07/2019 10:10 AM Exam Location: [facility] Patient Status: Inpatient Admit Date: 08/05/2019 Staff Ordering Physician: Kiran Chong MD [employer] Worker: Nik Elizabeth RDCS, RT Attending Provider: Kiran Chong MD Referring Physician: Castillo NAJERA; Exam Type: CA echo doppler color flow Study Info Complete two-dimensional, color flow and Doppler transthoracic echocardiogram is performed. Summary 1. Left ventricular chamber dimension is normal. 2. Left ventricular systolic function is normal, estimated at 55-60%. 3. There is moderately increased left ventricular wall thickness. 4. The left ventricular diastolic function is grade I diastolic dysfunction. 5. E/e' 8 is minimally elevated. 6. Global longitudinal strain is abnormal at -14.9%. Left Ventricle E/e' 8 is minimally elevated. Global longitudinal strain is abnormal at -14.9%. Left ventricular chamber dimension is normal. Left ventricular systolic function is normal, estimated at 55-60%. There is moderately increased left ventricular wall thickness. The left ventricular diastolic function is grade I diastolic dysfunction. Right Ventricle Right ventricular chamber dimension is normal. Right ventricular systolic function is normal. Left Atria Left atrial chamber dimension is normal. Right Atria Right atrial chamber dimension is normal. Aortic Valve The aortic valve is trileaflet. There is no aortic valve stenosis. There is no aortic valve regurgitation. Pulmonic Valve There is no pulmonic regurgitation. Mitral Valve There is no mitral valve stenosis. There is no mitral valve regurgitation. Tricuspid Valve There is no tricuspid valve regurgitation. Pericardium/Pleural There is no pericardial effusion. Aorta The aortic root size at the sinus of Valsalva is normal. Left Ventricular Outflow Tract Name Value Normal LVOT 2D LVOT Diameter 2.1 cm LVOT Doppler LVOT Peak Gradient 3 mmHg LVOT Mean Gradient 2 mmHg LVOT VTI 16 cm LVOT VTI/AV VTI Ratio 0.8 LVOT Stroke Volume 55 ml LVOT CO 4.8 l/min LVOT CI 2.0 l/min/m2 Mitral Valve Name Value Normal MV Doppler MV Decel Avery 233 cm/s2 MV PHT 75 ms MV Area (PHT) 2.9 cm2 4.0-5.0 MV Diastolic Function MV E Peak Velocity 60 cm/s MV
[2019-08-07 05:21] LABS: Alanine Aminotransferase 29 U/L (4-50); Albumin Level 2.9 g/dL (3.5-5.1); Alkaline Phosphatase 127 U/L (38-126); Aspartate Amino Transferase 68 U/L (17-59); Bilirubin,Total 1.4 mg/dL (0.2-1.3); Blood Urea Nitrogen 7 mg/dL (9-20); Calcium 7.9 mg/dL (8.4-10.2); Carbon Dioxide 33 mmol/L (22-30); Chloride 92 mmol/L (98-107); Estimated CRCL calculation 121 ml/min; Estimated Glomerular Filt Rate > 60; Glucose 80 mg/dL (75-110); Potassium 3.4 mmol/L (3.4-5.0); Sodium 127 mmol/L (137-145)
[2019-08-07] MEDS: FUROSEMIDE INJ 40 MG/4 ML VIAL IV PUSH (05:59)
[2019-08-07] MEDS: POTASSIUM CHLORIDE 20 MEQ TABLET 40 MEQ PO (08:11)
[2019-08-07] MEDS: SPIRONOLACTONE 50 MG TABLET PO (08:12)
[2019-08-07] MEDS: lisinopriL 20 MG TABLET PO (08:12)
[2019-08-07] MEDS: ENOXAPARIN 40 MG/0.4 ML SYRINGE SUB-Q (08:12)
[2019-08-07] MEDS: FOLIC ACID 1 MG TABLET PO (08:12)
[2019-08-07] MEDS: PROPRANOLOL HCL 20 MG TABLET PO (08:12)
[2019-08-07] MEDS: NICOTINE (*PBKC) 14 MG PATCH 1 PATCH TRANSDERM (08:12)
[2019-08-07] MEDS: PANTOPRAZOLE 40 MG TABLET PO (08:12)
[2019-08-07] MEDS: THIAMINE HCL 100 MG TABLET PO (08:13)
--- NOTE | 2019-08-07 11:52 | WPDGIPROGNO ---
Subjective Date/time seen: 08/07/19 11:52 Reason for follow-up cirrhosis and ascites. This very pleasant gentleman's feeling well. Continues to have some peripheral edema. Overall is feeling well. CT scan was reviewed revealing evidence of cirrhosis and fatty liver. This is compatible with the diagnosis of underlying alcoholic cirrhosis. General: very pleasant patient in no acute distress. HEENT: Head was normocephalic sclerae is clear mouth without masses neck was supple. Heart: Rate rhythm regular without S3 or S4. Lungs: CTA. Abdomen: Soft with no guarding or rigidity. Bowel sounds were active. Fluid wave with bulging flanks Neurologic: Cranial nerves 2 through 12 intact. No focal defects. No clonus. Musculoskeletal system: Revealed no joint tenderness or swelling no muscle atrophy. Extremities: Mild edema Skin: Warm and dry with normal turgor. Mental status: intact. Patient is alert and oriented. Impression: Alcoholic cirrhosis/fatty liver complicating factors: Ascites. Macrocytosis. Macrocytosis secondary to alcoholism. Hyponatremia. Active alcohol abuse. Chronic diarrhea. This may be due to IBS with diarrhea. This is most certainly exacerbated by active alcohol abuse. History of serrated adenoma colon polyps. Anal fissure. Hypothyroidism. Hypertrophic cardiomyopathy/diastolic dysfunction. Hypertension. COPD. Tobacco abuse. Recommendation: Continue fluid restriction. Consider liberalizing when serum sodium normalizes. Continue salt restriction. Continue Aldactone b.i.d.. Would discharge on b.i.d. Aldactone. May consider continuing oral Lasix at 20 mg q.a.m. for 1 week after discharge. Patient will be instructed to follow up in my office in 2-3 weeks. Outpatient EGD will be setup to evaluate for underlying esophageal varices. Encouraged alcohol abstention. Liver workup is still in progress. Outpatient BMP in 1 week. Objective Data Vital Signs Vital Signs: Vital Signs - 24 hr 08/06/19 12:00 08/06/19 14:00 08/06/19 16:00 Temperature 36.8 C Pulse Rate 93 94 94 Respiratory Rate 16 Blood Pressure 139/87 Pulse Oximetry 100 08/06/19 18:00 08/06/19 20:00 08/06/19 21:11 Temperature 36.4 C Pulse Rate 97 98 98 Respiratory Rate 16 Blood Pressure 143/88 H Pulse Oximetry 96 08/06/19 22:00 08/07/19 00:00 08/07/19 01:41 Temperature 36.6 C 36.6 C Pulse Rate 98 91 87 Respiratory Rate 20 18 Blood Pressure 137/93 H 134/74 Pulse Oximetry 99 93 08/07/19 04:00 08/07/19 05:43 08/07/19 08:00 Temperature 36.6 C Pulse Rate 92 85 99 Respiratory Rate 20 Blood Pressure 140/87 Pulse Oximetry 96 08/07/19 08:12 08/07/19 10:00 Temperature 36.4 C L Pulse Rate 85 98 Respiratory Rate 16 Blood Pressure 139/91 H Pulse Oximetry 98 Intake/Output Intake/Output: Intake & Output 08/04/19 08/05/19 08/06/19 08/07/19 23:59 23:59 23:59 23:59 Intake Total 1370 440 Output Total 1940 4700 1400 Balance -1940 -3330 -960 Meds/Results Medications: Active Medications Generic Name Dose Route Start Last Admin Trade Name Freq PRN Reason Stop Dose Admin Enoxaparin Sodium 40 mg 08/06/19 09:00 08/07/19 08:12 Lovenox SUB-Q 40 mg DAILY AYESHA Administration Folic Acid 1 mg 08/06/19 09:00 08/07/19 08:12 Folic Acid PO 1 mg DAILY AYESHA Administration Furosemide 40 mg 08/06/19 06:00 08/07/19 05:59 Lasix Inj IV PUSH 40 mg Q12H AYESHA Administration Lisinopril 20 mg 08/06/19 09:00 08/07/19 08:12 Prinivil PO 20 mg DAILY AYESHA Administration Lorazepam 1 mg 08/05/19 20:47 Ativan Inj IV PUSH Q4H PRN CIWA score greater than 8 Morphine Sulfate 2 mg 08/05/19 20:49 Morphine Sulfate Inj IV PUSH Q4H PRN Pain Rated 7-10 Nicotine 1 patch 08/06/19 09:00 08/07/19 08:12 Nicoderm Cq 14 Mg TRANSDERM 1 patch QAM AYESHA Administration Ondansetron HCl 4 mg 08/05/19 17:34
[2019-08-07 13:29] LABS: Hematocrit 40.3 % (42.0-52.0); Hemoglobin 14.1 g/dL (14.0-18.0); Mean Corpuscular Volume 111.3 fl (80-100); Mean Platelet Volume 9.5 fl (7.4-10.4); Platelet Count Result 160 k/mm3 (150-375); Red Blood Count 3.62 M/mm3 (4.6-6.20); Red Cell Distribution Width 14.2 % (11.5-14.5); White Blood Count 9.1 K/mm3 (4.5-10.0)
[2019-08-07 13:45] LABS: Blood Urea Nitrogen 8 mg/dL (9-20); Calcium 7.8 mg/dL (8.4-10.2); Carbon Dioxide 30 mmol/L (22-30); Chloride 91 mmol/L (98-107); Estimated CRCL calculation 137 ml/min; Estimated Glomerular Filt Rate > 60; Glucose 91 mg/dL (75-110); Potassium 3.9 mmol/L (3.4-5.0); Sodium 125 mmol/L (137-145)
--- NOTE | 2019-08-07 18:04 | PM.DS ---
DS: Diagnosis Admitting Diagnosis Admitting Diagnosis: Alcoholic cirrhosis of liver with ascites Discharge Diagnosis (1) Alcoholic cirrhosis of liver with ascites: Code(s): K70.31 - Alcoholic cirrhosis of liver with ascites Status: Acute Assessment and Plan: Patient was initiated on Lasix therapy along with Aldactone and propanolol. And diuresed well. Importance of alcohol cessation was discussed in great detail. By Dr. Fry Status post ultrasound-guided paracentesis by Radiology. The patient had 2 L ascitic fluid removed. Appears to be transudate with cultures negative and cytology negative No signs of alcohol withdrawal while here CT scan revealed nodular surface of the liver was fatty infiltration compatible with cirrhosis Numerous laboratory tests for evaluation of cirrhosis were pending at the time of discharge. He will follow-up with Dr. welsh in 2-3 weeks and probable have an EGD afterwards (2) Tobacco dependence: Code(s): F17.200 - Nicotine dependence, unspecified, uncomplicated Status: Chronic Assessment and Plan: Patient is not interested in smoking cessation education. provided a nicotine patch for symptoms of nicotine withdrawal. (3) HTN (hypertension): Code(s): I10 - Essential (primary) hypertension Status: Acute Assessment and Plan: resumed the patient's home lisinopril. Propanolol was added (4) Sinus tachycardia: Code(s): R00.0 - Tachycardia, unspecified Status: Acute Assessment and Plan: The patient reports chronic sinus tachycardia. During prior hospitalizations his heart rate has at times been as low as 80 but for the most part is in the low 100s. TSH actually elevated with and tachy probable from mild withdrawal. Echocardiogram normal ejection fraction of 55-60% with grade 1 diastolic dysfunction and no valvular abnormalities or pulmonary hypertension. (5) Macrocytosis without anemia: Code(s): D75.89 - Other specified diseases of blood and blood-forming organs Status: Acute Assessment and Plan: Likely secondary to alcoholism. b12 and folate normal DS: Summary Hospital Course Hospital Course: 49-year-old hypertensive alcoholic admitted with increasing edema and abdominal girth. Paracentesis prior to admission removed over 2 L of fluid which appears to be transudate. Is given IV Lasix p.o. spironolactone and diuresis ensued. Still had some edema in his lower extremities by time of discharge but a CT scan today prior to discharge showed minimal ascitic fluid. He was seen in consultation by Dr. glucose will follow-up with him in 2-3 weeks for report on an outstanding blood tests and have an EGD at a later date. He was counseled on the importance of stopping alcohol consumption Time Spent with Patient Time attestation: Total time spent providing and/or coordinating discharge services 35 minutes Exam Narrative: Exam Narrative: Condition on discharge Blood pressure 138/86 pulse is 94 respirations 16 per minute afebrile Lungs clear CV regular rate rhythm slightly tacky no murmur Abdomen is soft nontender no masses slightly distended Extremities still some pitting edema below the knees but much decreased Neuro alert no focal deficits oriented x3 DS: Data Data Completed and Pending Labs on day of discharge: Labs from last 24 hours 08/07/19 08/07/19 08/07/19 13:02 13:02 04:29 WBC 9.1 RBC 3.62 L Hgb 14.1 Hct 40.3 L MCV 111.3 H MCH 39.0 H MCHC 35.0 RDW 14.2 Plt Count 160 MPV 9.5 Sodium 125 L 127 L Potassium 3.9 3.4 Chloride 91 L 92 L Carbon Dioxide 30 33 H BUN 8 L 7 L Creatinine 0.70 0.80 Estim Creat Clear Calc 137 121 Estimated GFR > 60 > 60 Glucose 91 80 Calcium 7.8 L 7.9 L Total Bilirubin 1.4 H Direct Bilirubin 0.0 AST 68 H ALT 29 Alkaline Phosphatase 127 H Total Protein 6.0 L
[2019-08-08 02:41] LABS: Amylase Peritoneal Fluid <10 U/L
[2019-08-09 03:04] LABS: Hepatitis A Antibody Total Nonreactive (Nonreactive); Hepatitis B Core Ab Total Nonreactive (Nonreactive)
[2019-08-09 03:28] LABS: Glucose Peritoneal Fluid 99 mg/dL; Total Protein Peritoneal Fluid <3.0 g/dL
[2019-08-09 10:45] LABS: Mitochondrial (M2) Ab (IgG) <=20.0 U (<=20.0)
[2019-08-09 21:39] LABS: Ceruloplasmin 35 mg/dL (18-36)
[2019-08-10 01:00] LABS: Vitamin D 1,25 (OH)2 Total 25 pg/mL (18-72); Vitamin D2 1,25 (OH)2 <8 pg/mL; Vitamin D3 1,25 (OH)2 25 pg/mL
[2019-08-10 10:23] LABS: LKM 1 Antibody <=20.0 U (<=20.0)
[2019-08-10 16:01] LABS: Albumin Peritoneal Fluid 0.7 g/dL
[2019-08-11 00:12] LABS: NIL 0.01 IU/mL; Quantiferon TB Plus, 1T NEGATIVE (NEGATIVE); TB1-NIL 0.01 IU/mL; TB2-NIL 0.02 IU/mL
[2019-08-11 18:52] LABS: Chromogranin A 94 ng/mL (25-140)
[2019-08-13 21:33] LABS: ALT 34 U/L (9-46); Alpha-2-Macroglobulin 253 mg/dL (106-279); Apolipoprotein A1 88 mg/dL (94-176); Fibrosis Score 0.85; Fibrosis Stage F4; GGT 389 U/L (3-95); Haptoglobin 99 mg/dL (43-212); Necroinflammat Act Grade A1
== END 2019-08-07 13:50 | disposition home or self-care (01) | DRG 280 ==
LOC: ANHED 18:15 → ANH2MED 08-06 01:09
PROVIDERS: Internal Medicine; Internal Medicine Gastroenterology; Admitting Provider Internal Medicine; Emergency Provider Emergency Medicine; PCP Nurse Practitioner Family; Visit Provider Internal Medicine
DX: K70.31 Alcoholic cirrhosis of liver with ascites (principal); E87.1 Hypo-osmolality and hyponatremia; I11.9 Hypertensive heart disease without heart failure; I42.2 Other hypertrophic cardiomyopathy; F10.10 Alcohol abuse, uncomplicated; F17.210 Nicotine dependence, cigarettes, uncomplicated; R00.0 Tachycardia, unspecified; D75.89 Other specified diseases of blood and blood-forming organs; K52.9 Noninfective gastroenteritis and colitis, unspecified; K60.2 Anal fissure, unspecified; E03.9 Hypothyroidism, unspecified; J44.9 Chronic obstructive pulmonary disease, unspecified; Z86.010 Personal history of colon polyps
CPT/HCPCS: 36415; 49083; 71046; 71260; 74177; 80048; 80061; 80076; 81596; 82042; 82140; 82150; 82390; 82525; 82607; 82652; 82728; 82746; 82941; 82945; 83520; 83540; 83550; 83735; 84100; 84157; 84300; 84436; 84439; 84443; 84480; 85025; 85027; 85610; 85730; 86038; 86140; 86316; 86334; 86376; 86480; 86704; 86706; 86708; 87045; 87046; 87324; 87340; 87427; 89051; 93306; 96374; 99285; A9270; C1729; J1650; J1940; Q9967

== ENCOUNTER 2019-08-20 10:06 | Outpatient (CLI) | payer MEDICAID, SELFPAY ==
[2019-08-20 10:54] LABS: Blood Urea Nitrogen 4 mg/dL (9-20); Calcium 9.1 mg/dL (8.4-10.2); Carbon Dioxide 26 mmol/L (22-30); Estimated Glomerular Filt Rate > 60; Glucose 95 mg/dL (75-110); Potassium 4.6 mmol/L (3.4-5.0); Sodium 130 mmol/L (137-145)
[2019-08-20 12:31] LABS: Chloride 93 mmol/L (98-107)
== END 2019-08-20 10:07 | disposition home or self-care (01) ==
PROVIDERS: PCP Nurse Practitioner Family; Visit Provider Internal Medicine Gastroenterology
DX: K70.31 Alcoholic cirrhosis of liver with ascites (principal)
CPT/HCPCS: 36415; 80048

== ENCOUNTER 2019-08-26 00:30 | Outpatient (CLI) | payer OTHER, SELFPAY ==
[2019-08-26 18:07] LABS: SARS-CoV-2 RNA PCR Negative
== END 2019-08-26 00:31 | disposition home or self-care (01) ==
LOC: ANHCOVIDDT 00:31
PROVIDERS: PCP Nurse Practitioner Family; Visit Provider Orthopaedic Surgery
DX: Z01.812 Encounter for preprocedural laboratory examination (principal); Z20.828 Contact with and (suspected) exposure to other viral communicable diseases
CPT/HCPCS: 87635; C9803; U0003

== ENCOUNTER 2019-08-28 00:56 | Day surgery (SDC) | payer OTHER, SELFPAY ==
[2019-06-15 15:03] VITALS: BMI 28.5
[2019-08-20 11:11] VITALS: BP 142/91; PULSE 100; RESP 16; TEMP 36.6; O2SAT 99; BMI 28.2
[2019-08-28] VITALS (7 sets, daily range): BP systolic 145–174; BP diastolic 98–109; PULSE 87–100; RESP 16–20; TEMP 36.1–36.3; O2SAT 93–100
[2019-08-28] MEDS: CELECOXIB 200 MG CAPSULE PO (06:41)
[2019-08-28] MEDS: LACTATED RINGERS 1,000 ML 30 ML IV CONT (06:42)
--- NOTE | 2019-08-28 06:43 | SUR.PREOP ---
Patient says he has used crutches before and feels comfortable with using them. Says has crutches a cane and a walker at home. No crutch training needed.
[2019-08-28 06:50] LABS: Sodium 132 mmol/L (137-145)
--- NOTE | 2019-08-28 07:13 | P.PNAN_ITS ---
Anes - Initial Pre Proc Eval Procedure: Operation Date: 08/28/19 07:30 Proposed Procedures p Right Knee Arthroscopy, Proceed As Indicated - Karsten Echavarria MD Date/Time: 08/28/19 07:13 Surgeon: Karsten Echavarria MD Pre Op Diagnosis: Right Medial Meniscus Tear Patient Data Age: 49 Gender: M Height: 1.8 m Weight: 91.6 kg Last Vital Signs Temp 36.6 C 08/20/19 11:11 Pulse 100 08/20/19 11:11 Resp 16 08/20/19 11:11 BP 142/91 H 08/20/19 11:11 Pulse Ox 99 08/20/19 11:11 Allergies Allergy/AdvReac Type Severity Reaction Status Date / Time bee venom protein (honey bee) Allergy Severe Swelling Verified 08/28/19 06:10 [bees] Home Medications Medication Instructions Recorded Confirmed Type lisinopril 20 mg tablet 20 mg PO DAILY 07/20/19 08/28/19 History furosemide [Lasix] 20 mg PO DAILY #30 tablet 08/07/19 08/28/19 Rx propranolol 20 mg PO Q12HR #60 tablet 08/07/19 08/28/19 Rx spironolactone [Aldactone] 50 mg PO BID #60 tablet 08/07/19 08/28/19 Rx Laboratory Tests 08/28/19 06:36 Sodium 132 mmol/L L mmol/L (137-145) Patient hx anesthesia problems: none Family hx anesthesia problems: none PMFSH Social History Social History Social History: Primary care provider: Zoë Swan BILINGUAL LOAN PROCESSOR Code status: Full code Smoking packs per day: 1 Smoking cigarettes per day: 20.0 Years smoked: 25 Smoking pack-years: 25.00 Smoking status: Current every day smoker Tobacco type: cigarettes Alcohol intake: current Drinks per week: 50 Substance use: never Substance use type: does not use Additional occupation/education comments: 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 He is currently on leave from his job due to workman's comp over right knee injury. Gender identity (if verbalized by the patient): Male Spiritual care concerns: No Agree to blood products: Yes Anes - Eval Final PreProcedure Day of Procedure 08/28/19 07:13 Patient weight: overweight Heart: regular rate and rhythm Lungs: clear to auscultation and normal air movement Airway: Mallampati scale class II Neurological: alert and oriented Last oral intake: >/= 8 hours ASA classification: IV Emergent: no Anesthetic plan: proceed Anesthesia type and monitoring: general LMA Informed Consent: The patient's anesthetic plan and its attendant risks and benefits were discussed with the patient/family/POA. Questions were solicited and answers provided to the satisfaction of the patient/family/POA.
--- NOTE | 2019-08-28 07:38 | WPDHPUPDATE1 ---
History and Physical Update Update Date/Time: 08/28/19 07:38 History and Physical has been reviewed, including an updated exam of the patient. There are NO changes in the patient's condition. Risks, benefits, and alternatives have been discussed and questions answered. Patient agrees to proceed with procedure.
[2019-08-28] MEDS: ceFAZolin 2 GM/D5W 50 ML 2 GM/50 ML BAG IVPB (07:43)
--- NOTE | 2019-08-28 08:30 | SUR.OPER ---
EBL: 10cc
--- NOTE | 2019-08-28 08:48 | PM.OP ---
Procedure Note - Brief Procedure Note - Brief Date of procedure: 08/28/19 Pre-op diagnosis: Right Medial Meniscus Tear Post-op diagnosis: other (LATERAL MENISCUS TEAR) Anesthesia: GETA Surgeon: Karsten Echavarria MD Estimated blood loss (mL): 5 Complications: No immediate complications Condition: stable Disposition: PACU
--- NOTE | 2019-08-28 08:55 | PM.OP ---
Procedure Note - Brief Procedure Note - Brief Date of procedure: 08/28/19 Pre-op diagnosis: Right Medial Meniscus Tear Post-op diagnosis: other (RIGHT LATERAL MENISCUS TEAR) Description of procedure: RIGHT KNEE SCOPE Anesthesia: GETA Surgeon: Karsten Echavarria MD Estimated blood loss (mL): 5 Complications: No immediate complications Condition: stable Disposition: PACU
--- NOTE | 2019-08-28 09:16 | SUR.PHASEI ---
0838 - dr. oshea aware of pt's blood pressure. no orders received.
--- NOTE | 2019-08-28 14:32 | OP_ITS ---
DATE OF PROCEDURE: 08/28/2019 PREOPERATIVE DIAGNOSIS: Right knee medial meniscus tear. POSTOPERATIVE DIAGNOSES: Right knee lateral meniscus tear, chondromalacia, and synovitis PROCEDURE PERFORMED: Right knee arthroscopy with partial lateral meniscectomy, chondroplasty, and minor synovectomy. ANESTHESIA: General. COMPLICATIONS: None. INDICATIONS: This is a 49-year-old male who injured his right knee at work. MRI revealed a medial meniscus tear. He was indicated for right knee arthroscopy. The patient was taken to the operating room in stable condition and placed in supine position. General anesthesia was induced and the right lower extremity was prepped and draped sterilely from the toes to the thigh. Superior medial portal was used for an outflow cannula. Inferolateral port used for the camera. The camera was then introduced. There was mild chondromalacia of the patella. There was a large plica band in the medial retinaculum. There was also some synovitis and Hoffa synovium. The medial compartment was entered. There was no tear of the medial meniscus. This was checked with a probe after a medial portal was established. There was no undersurface tearing or any superior surface tearing. There was no significant chondromalacia. The ACL was identified and it was intact. Lateral compartment was entered, there was a complex tear of the lateral meniscus. The lateral meniscus tear then was resected down to a smooth base. There was some mild chondromalacia in that region as well of the lateral femoral condyle and that underwent chondroplasty. Once that was performed, then the plica band was resected and Hoffa synovium was resected as well. The patella tracked without any tilt. The instruments were removed after thorough irrigation of the knee joint. The wounds were approximated with 4-0 nylon suture. Sterile dressing was applied. The patient was extubated. D I MT: [facility]
== END 2019-08-28 10:00 | disposition home or self-care (01) ==
PROVIDERS: Anesthesiology; PCP Nurse Practitioner Family; Visit Provider Orthopaedic Surgery
PROC: (CPT 29870; principal; 2019-08-28 07:30)
DX: S83.271A Complex tear of lateral meniscus, current injury, right knee, initial encounter (principal); F17.210 Nicotine dependence, cigarettes, uncomplicated; X58.XXXA Exposure to other specified factors, initial encounter
CPT/HCPCS: 29881; 36415; 84295; A9270; J0690; J1100; J1170; J2250; J2704; J3010; J7120

== ENCOUNTER 2019-11-09 15:11 | Outpatient (CLI) | payer OTHER, SELFPAY ==
[2019-11-09 17:13] LABS: Anion Gap 7 mmol/L (8-16); Blood Urea Nitrogen 3 mg/dL (7-18); Calcium 8.8 mg/dL (8.5-10.1); Carbon Dioxide 30 mmol/L (21-32); Chloride 95 mmol/L (98-108); Estimated Glomerular Filt Rate > 60; Glucose 83 mg/dL (70-99); Osmolality Calculated 269 mOsm/kg (285-295); Potassium 4.2 mmol/L (3.5-5.1); Sodium 132 mmol/L (136-145)
== END 2019-11-09 15:12 | disposition home or self-care (01) ==
LOC: CHSLAB 15:13
PROVIDERS: PCP Nurse Practitioner Family; Visit Provider Nurse Practitioner Family
DX: Q89.9 Congenital malformation, unspecified (principal)
CPT/HCPCS: 36415; 80048

== ENCOUNTER 2019-11-10 08:07 | Outpatient (CLI) | payer OTHER, SELFPAY ==
--- NOTE | ~2019-11-10 | CT_ITS ---
EXAMINATION: CT abdomen pelvis w con DATE: 11/10/2019 10:13 INDICATION: Umbilical mass. TECHNIQUE: Computed tomography (CT) of the abdomen and pelvis was performed with 100 mL Omnipaque 350 intravenous contrast. Automated exposure control and iterative reconstruction technique were employe d. The dose-length product was 1185.85 mGy-cm. COMPARISON: CT abdomen and pelvis 08/06/2019 FINDINGS: The visualized portions of the lung bases demonstrate mild atelectasis on the right. There is a 4 mm nodule in left lower lobe, likely benign. No pleural effusion. The heart size is normal. No pericardial effusion. The liver demonstrates hypertrophy of left lateral segment and surface nodular ity, consistent with cirrhosis. Gallbladder wall thickening is seen, likely from a combination of claudette nomyomatosis and chronic liver disease. The spleen, pancreas, adrenal glands, and left kidney are nor mal. There is a 5 mm cyst in right kidney. There are no dilated loops of bowel. The appendix is dakot[place] l. There is a moderate volume of ascites. There is a small umbilical hernia containing ascites. There are no pathologically enlarged lymph nodes. There is a paraumbilical portacaval shunt. There is miesha re lower lumbar spondylosis. IMPRESSION: 1. Cirrhosis of the liver with portal venous hypertension. 2. Moderate volume of ascites. Umbilical hernia containing ascites. Reviewed, dictated and finalized at location B.
== END 2019-11-10 08:08 | disposition home or self-care (01) ==
PROVIDERS: PCP Nurse Practitioner Family; Visit Provider Nurse Practitioner Family
DX: Q89.9 Congenital malformation, unspecified (principal)
CPT/HCPCS: 74177; Q9965

== ENCOUNTER 2019-11-17 08:32 | Outpatient (CLI) | payer OTHER, SELFPAY ==
--- NOTE | ~2019-11-17 | US_ITS ---
EXAMINATION: US abdomen limited DATE: 11/17/2019 10:38 INDICATION: Ascites. TECHNIQUE: Multiple grayscale and Doppler ultrasound images of the abdomen were obtained. COMPARISON: CT abdomen and pelvis 11/10/2019 FINDINGS: A survey of the 4 quadrants of the abdomen demonstrates no significant ascites. IMPRESSION: 1. No significant ascites. Reviewed, dictated and finalized at location A. IMPRESSION: 1. No significant ascites.
[2019-11-17 08:46] LABS: Mean Platelet Volume 8.8 fl (7.4-10.4); Platelet Count Result 234 k/mm3 (150-375)
[2019-11-17 09:01] LABS: INR 1.3; Prothrombin Time 15.8 Seconds (11.1-14.7)
== END 2019-11-17 08:33 | disposition home or self-care (01) ==
PROVIDERS: PCP Nurse Practitioner Family; Visit Provider Nurse Practitioner Family
DX: R18.8 Other ascites (principal)
CPT/HCPCS: 36415; 76705; 85049; 85610

== ENCOUNTER 2020-01-28 10:27 | Outpatient (CLI) | payer OTHER, SELFPAY ==
--- NOTE | 2020-01-28 10:29 | ECG_ITS ---
Measurements Intervals [place] Rate: 119 P: 62 TX: 164 QRS: 56 QRSD: 93 T: 43 QT: 339 QTc: 478 Interpretive Statements SINUS TACHYCARDIA CANNOT RULE OUT SEPTAL INFARCT, AGE INDETERMINATE ABNORMAL ECG Electronically Signed On 01-28-2020 10:52:17 CDT by Aidan Lemus D.O.
== END 2020-01-28 10:28 | disposition home or self-care (01) ==
LOC: CHSCARD 10:29
PROVIDERS: PCP Family Medicine; Visit Provider Family Medicine
DX: R00.0 Tachycardia, unspecified (principal)
CPT/HCPCS: 93005

== ENCOUNTER 2020-04-30 08:42 | Outpatient (CLI) | payer OTHER, SELFPAY ==
--- NOTE | ~2020-04-30 | MR_ITS ---
EXAMINATION: MR hand RT wo/w con DATE: 04/30/2020 11:06 INDICATION: Mass at the dorsum of the right hand TECHNIQUE: Magnetic resonance imaging (MRI) of the right hand was performed without intravenous contr ast. A marker was placed over the mass. Sequences included axial, sagittal and coronal PD-weighted F SE and axial PD-weighted FS FSE, precontrast axial T1-weighted FS FSE and post contrast axial, sagitt al and coronal T1-weighted FS FSE were also obtained. COMPARISON: None. FINDINGS: There is soft tissue mass in the subdermal tissues over the dorsum of the hand which measures approxi mately 10 cm radial to ulnar, 8.8 cm proximal to distal and up to 2.3 cm in maximal thickness. The ma ss is slightly hyperintense to skeletal muscle and T1 and PD-weighted images. The mass appears relati vely well-defined aside from numerous tiny linear extensions of subcutaneous fat into the mass along its deep margin. Also along its deep margin is a well-defined 6 x 5 mm lesion which enhances and appe ars contiguous with adjacent likely draining subcutaneous vessel. There is no evident enhancement of the larger mass on the initial postcontrast axial sequences. A few small ill-defined foci of enhancem ent are however seen on the more delayed sagittal and coronal postcontrast sequences obtained up to 6 minutes following the initial postcontrast axial sequence. No evident flow voids are seen within the mass. There is a thin subcutaneous fat plane situated between the mass and the normal appearing unde rlying muscles and tendons of the hand. Bones are also normal in appearance with normal marrow signal throughout. IMPRESSION: 1. Approximately 10 x 9 x 2 cm nonspecific subdermal mass over the dorsum of the hand. Given appearan ce and the provided history that this is been present since childhood would favor a vascular malforma tion with differential including either a low flow vascular malformation either venous and/or lymphat ic or less likely an atypical noninvoluting hemangioma. Reviewed, dictated and finalized at location A. LIATE MARKETING COORDINATOR IMPRESSION: 1. Approximately 10 x 9 x 2 cm nonspecific subdermal mass over the dorsum of th e hand. Given appearance and the provided history that this is been present sin ce childhood would favor a vascular malformation with differential including ei ther a low flow vascular malformation either venous and/or lymphatic or less li amy an atypical noninvoluting hemangioma.
== END 2020-04-30 08:43 | disposition home or self-care (01) ==
LOC: CHSIMG 08:45
PROVIDERS: PCP Family Medicine
DX: R22.31 Localized swelling, mass and lump, right upper limb (principal)
CPT/HCPCS: 73220; A9577

== ENCOUNTER 2020-06-14 09:33 | Outpatient (CLI) | payer OTHER, SELFPAY ==
[2020-06-14 09:44] LABS: Hematocrit 48.9 % (40.0-54.0); Hemoglobin 16.8 g/dL (14.0-18.0); Mean Corpuscular HGB Conc 34.4 g/dL (32.0-36.0); Mean Platelet Volume 8.8 fl (8.7-11.0); Platelet Count Result 181 K/mm3 (150-420); Red Blood Count 4.94 M/mm3 (4.70-6.10); Red Cell Distribution Width 15.3 % (11.6-14.4)
[2020-06-14 09:57] LABS: INR 1.5; Prothrombin Time 15.4 Seconds (9.50-12.10)
[2020-06-14 10:15] LABS: Alanine Aminotransferase 34 U/L (16-63); Albumin Level 3.1 g/dL (3.4-5.0); Alkaline Phosphatase 229 U/L (46-116); Anion Gap 10 mmol/L (8-16); Aspartate Amino Transferase 84 U/L (15-37); Bilirubin,Total 2.8 mg/dL (0.00-1.00); Blood Urea Nitrogen 3 mg/dL (7-18); Calcium 8.3 mg/dL (8.5-10.1); Carbon Dioxide 30 mmol/L (21-32); Chloride 92 mmol/L (98-108); Estimated Glomerular Filt Rate > 60; Glucose 103 mg/dL (70-99); Osmolality Calculated 270 mOsm/kg (285-295); Potassium 3.3 mmol/L (3.5-5.1); Sodium 132 mmol/L (136-145)
== END 2020-06-14 09:34 | disposition home or self-care (01) ==
LOC: CHSLAB 09:35
PROVIDERS: PCP Family Medicine; Visit Provider Family Medicine
DX: F10.10 Alcohol abuse, uncomplicated (principal)
CPT/HCPCS: 36415; 80053; 85027; 85610

== ENCOUNTER 2020-07-24 15:33 | Inpatient (IN) | payer OTHER, SELFPAY ==
[2020-07-24] VITALS (9 sets, daily range): BP systolic 146–176; BP diastolic 6–95; PULSE 107–138; RESP 18–20; TEMP 36.3–37; O2SAT 95–99; BMI 31.8
--- NOTE | ~2020-07-24 | US_ITS ---
EXAMINATION: US paracentesis abd w/image DATE: 07/26/2020 13:06 INDICATION: Ascites. TECHNIQUE: The procedure and its risks, benefits, and alternatives were discussed with the patient. P otential risks discussed included bleeding and infection. The skin was prepped and draped in sterile fashion. 1% lidocaine was used for local anesthesia. Under ultrasound guidance, a 5 Fr catheter with trochar was advanced into the ascites in the left abdomen. Fluid was aspirated. The catheter was breanna cody, and a dressing was applied. There were no immediate complications. FINDINGS: Ultrasound images demonstrate ascites and the catheter within the fluid. IMPRESSION: 1. Successful ultrasound-guided paracentesis yielding 4100 mL of clear, ruma-colored fluid. Reviewed, dictated and finalized at location A. IMPRESSION: 1. Successful ultrasound-guided paracentesis yielding 4100 mL of clear, ruma- colored fluid.
--- NOTE | ~2020-07-24 | XR_ITS ---
XR chest 2V 07/24/2020 16:31 Indication: Shortness of breath Procedure: 2 view chest Comparison: Comparison to multiple prior studies sequentially, with oldest reviewed study dated 01/30. 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 Heart size normal. No focal air space disease, pulmonary edema, pleural effusion or suspected pneumothorax. Impression: 1: No acute cardiopulmonary disease. Reviewed, dictated and finalized at location A. Impression: 1: No acute cardiopulmonary disease.
--- NOTE | ~2020-07-24 | US_ITS ---
EXAMINATION: US paracentesis abd w/image DATE: 07/25/2020 13:01 INDICATION: Ascites. TECHNIQUE: The procedure and its risks, benefits, and alternatives were discussed with the patient. P otential risks discussed included bleeding and infection. The skin was prepped and draped in sterile fashion. 1% lidocaine was used for local anesthesia. Under ultrasound guidance, a 5 Fr catheter with trochar was advanced into the ascites in the left lower quadrant. Fluid was aspirated. The catheter w as removed, and a dressing was applied. There were no immediate complications. FINDINGS: Ultrasound images demonstrate ascites and the catheter within the fluid. IMPRESSION: 1. Successful ultrasound-guided paracentesis yielding 5000 mL of yellow fluid. Reviewed, dictated and finalized at location A.
[2020-07-24 16:12] LABS: Basophils Absolute Auto 0.1 K/mm3 (0.0-0.1); Basophils Percent Auto 0.8 % (0.2-1.2); Eosinophils Absolute Auto 0.2 K/mm3 (0-0.3); Eosinophils Percent Auto 1.1 % (0-4.4); Hematocrit 42.8 % (42.0-52.0); Hemoglobin 15.3 g/dL (14.0-18.0); Immature Granulocyte Percent A 0.7 % (0-0.5); Lymphocytes Absolute Auto 1.85 K/mm3 (0.9-3.2); Lymphocytes Percent Auto 13.8 % (18.3-44.2); Mean Corpuscular HGB Conc 35.7 g/dl (32-36); Mean Corpuscular Hemoglobin 36.7 pg (26-34); Mean Corpuscular Volume 102.6 fl (80-100); Mean Platelet Volume 8.4 fl (7.4-10.4); Monocytes Absolute Auto 1.5 K/mm3 (0.1-0.6); Monocytes Percent Auto 11.1 % (2.6-8.5); Neutrophils Absolute Auto 9.7 K/mm3 (1.3-6.7); Neutrophils Percent Auto 72.5 % (45.5-73.1); Platelet Count Result 202 k/mm3 (150-375); Red Blood Count 4.17 M/mm3 (4.6-6.20); Red Cell Distribution Width 16.5 % (11.5-14.5); White Blood Count 13.4 K/mm3 (4.5-10.0)
[2020-07-24 16:26] LABS: INR 1.2; Partial Thromboplastin Time 28.6 SECONDS (22.3-36.8)
[2020-07-24 16:27] LABS: Ethanol 99 mg/dL (<10)
[2020-07-24 16:31] LABS: Alanine Aminotransferase 37 U/L (4-50); Albumin Level 3.8 g/dL (3.5-5.1); Alkaline Phosphatase 188 U/L (38-126); Anion Gap 8 mmol/L (8-16); Aspartate Amino Transferase 140 U/L (17-59); Bilirubin,Total 2.8 mg/dL (0.2-1.3); Blood Urea Nitrogen 3 mg/dL (9-20); Calcium 8.1 mg/dL (8.4-10.2); Carbon Dioxide 23 mmol/L (22-30); Chloride 92 mmol/L (98-107); Estimated CRCL calculation 159 ml/min; Estimated Glomerular Filt Rate > 60; Glucose 101 mg/dL (75-110); Sodium 123 mmol/L (137-145)
--- NOTE | 2020-07-24 16:35 | ED.GENADULT ---
HPI - General Adult General Chief complaint: Unspecified Stated complaint: I'm just miserable, I'm full of fluids Time Seen by Provider: 07/24/20 15:41 History of Present Illness HPI narrative: Patient is a 50-year-old male who is an alcoholic and has history of alcoholic cirrhosis who presents ER with abdominal distention. Patient reports significant distention over the last 2 weeks with 25 pound weight gain. He has history of ascites that has been tapped in the past. He takes furosemide and spironolactone to help with diuresis. His physician recently went up on the spironolactone in hopes that it would prevent him from having to get a therapeutic tach. No fevers or chills or sweats. He does have shortness of breath related to the mass of his abdomen. Denies abdominal pain just the distention and fullness. Patient reports he drinks at least 12 drinks a day and is usually beer. reports he drinks wine and has 6 shots of fireball a day. Related Data Allergies Allergy/AdvReac Type Severity Reaction Status Date / Time bee venom protein (honey bee) Allergy Severe Swelling Verified 07/24/20 15:39 [bees] acetaminophen [From Percocet] AdvReac Itching Verified 07/24/20 15:39 oxycodone [From Percocet] AdvReac Itching Verified 07/24/20 15:39 Review of Systems Review of Systems: All systems reviewed & are unremarkable except as noted in HPI and below Constitutional: Constitutional: Denies chills and Reports weight gain Cardiovascular: Cardiovascular: Denies chest pain and Denies radiating jaw, neck or arm pain Respiratory: Respiratory: Denies cough, Reports dyspnea and Denies wheezing Gastrointestinal: Gastrointestinal: Denies abdominal pain, Denies nausea and Denies vomiting Comments: Abdominal distention PMFSH Past Medical History Medical History (Updated 07/25/20 @ 00:33 by Tarun Barron MD) Adenomatous colon polyp Alcohol abuse Alcoholic cirrhosis of liver Anal fissure August 2016 Depression Diastolic dysfunction Noted on echocardiogram from 2017 Elevated liver function tests Essential hypertension Fatty liver Hypertension Hypertrophic cardiomyopathy Noted on echocardiogram 2016 IBS (irritable bowel syndrome) Medial meniscus tear Nicotine dependence Tear of medial meniscus of right knee, current Tobacco dependence Surgical History Surgical History (Updated 07/24/20 @ 22:07 by Lizz A. Benhoff, DIALS SUPERVISOR) H/O knee surgery right H/O umbilical hernia repair History of colonoscopy with polypectomy August [address] Lunsford demonstrated internal hemorrhoids with stigmata of bleeding, 1 colon polyp, and acute anal fissure Family History Family History Father Hypertension Sibling Alcohol abuse 3 brothers Father Colon polyp Mother Colon polyp Social History Social History (Updated 07/24/20 @ 22:12 by Lizz Holder NP) Social History: The patient has 3 children. He lives with a fiancee. He is a full code and states that his fiancee is a durable power state attorney for healthcare. The patient stated that he drinks at least 20 drinks a day whether it is beer makes drinks. He mixes them up during the day. He said he never feels drawn when he drinks. He does not go through any withdrawals he stated. 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 He is currently on leave from his job due to workman's comp over right knee injury. The patient has applied for disability. Gender identity (if verbalized by the patient): Male S
[2020-07-24 17:16] LABS: Potassium 4.2 mmol/L (3.4-5.0)
[2020-07-24] MEDS: SODIUM CHLORIDE 0.9% IV 1,000 ML 999 ML IV CONT (18:51)
--- NOTE | 2020-07-24 20:05 | ADMGEN ---
This patient, Kinsey Rivera, was admitted to IMU Room 204-01. Patient/family oriented to hospital policies and general routines including ID bracelet, bed and alarms, visiting hours, pain management, procedures, bathroom and other care routines, personal items, smoking policy, room service/diet, and visiting hours. Information on how to activate the Rapid Response Team has been discussed. Patient/Family are encouraged to report perceived risks to care and to ask questions if they do not understand what they are told or what they should do. Ena KELLY arrived approx 1951
--- NOTE | 2020-07-24 21:59 | PM.IMHP ---
H&P: HPI History of Present Illness Date/Time: 07/24/20 21:59 patient who has a long-term history of alcoholism. The patient stated that he had a paracentesis a long time ago but has not required 1 since then. The patient stated that he had an appointment to come here in the past and they did an ultrasound and found no fluid on his abdomen to be drained because the medication was working. The patient takes Lasix and spironolactone routinely for his cirrhosis of the liver. The patient does not have a regular GI specialist. The patient stated that he has been having problems breathing for the last few months and that his abdomen has gotten worse over the last few months. The patient stated he last drink this morning. He tells me that he drinks about 20 drinks a day whether that it is beer or mixed drink. He denies having any alcohol withdrawals. Chest x-ray was read as no acute cardiopulmonary disease. Patient's abdomen is greatly distended. The patient had been given IV fluids in the emergency room and was discontinued. The patient is being admitted to observation status on 07/24/2020. Chief Complaint: Abdominal distension Review of Systems Review of Systems: All systems reviewed & are unremarkable except as noted in HPI and below Constitutional: Constitutional: Reports as per HPI and Reports no additional constitutional complaints Eyes: Eyes: Reports as per HPI and Reports no additional eye complaints ENT: Reports system reviewed and no additional complaints, except as documented and Reports Normal hearing present Cardiovascular: Cardiovascular: Reports no additional cardiovascular complaints Respiratory: Respiratory: Reports no additional respiratory complaints and Reports no additional respiratory complaints Gastrointestinal: Gastrointestinal: Reports as per HPI and Reports no additional gastrointestinal complaints Musculoskeletal: Musculoskeletal: Reports no additional musculoskeletal complaints Integumentary/Breasts: Skin/Breast: Reports system reviewed and no additional complaints, except as docu and Reports as per HPI Neurologic: Reports system reviewed and no additional complaints, except as documented, Reports as per HPI and Reports Normal hearing present Psychiatric: Psychiatric: Reports no additional psychiatric complaints and Reports as per HPI Endocrine: Endocrine: Reports no additional endocrine complaints Hematologic/Lymphatic: Hematologic/Lymphatic: Reports no additional hematologic/lymphatic complaints Allergic/Immunologic: Allergic/Immunologic: Reports no additional allergic/immunologic complaints [facility] Past Medical History Medical History (Updated 07/24/20 @ 22:20 by Lizz Holder NP) Adenomatous colon polyp Alcohol abuse Alcoholic cirrhosis of liver Anal fissure August 2016 Depression Diastolic dysfunction Noted on echocardiogram from 2017 Elevated liver function tests Essential hypertension Fatty liver Hypertension Hypertrophic cardiomyopathy Noted on echocardiogram 2016 IBS (irritable bowel syndrome) Medial meniscus tear Nicotine dependence Tear of medial meniscus of right knee, current Tobacco dependence Surgical History Surgical History (Updated 07/24/20 @ 22:07 by Lizz Holder NP) H/O knee surgery right H/O umbilical hernia repair History of colonoscopy with polypectomy August [address] Lunsford demonstrated internal hemorrhoids with stigmata of bleeding, 1 colon polyp, and acute anal fissure Family History Family History Father Hypertension Sibling Alcohol abuse 3 brothers Father Colon polyp Mother Colon polyp Social History Social History (Updated 07/24/20 @ 22:12 by Lizz Holder NP) Social History: The patient has 3 children. He lives with a fiancee. He is a full code and states that his fiancee is a durable power document review attorney for healthcare. The patient stated that he drinks at le
[2020-07-24 22:54] LABS: Anion Gap 5 mmol/L (8-16); Blood Urea Nitrogen 4 mg/dL (9-20); Calcium 7.9 mg/dL (8.4-10.2); Carbon Dioxide 27 mmol/L (22-30); Chloride 92 mmol/L (98-107); Estimated CRCL calculation 152 ml/min; Estimated Glomerular Filt Rate > 60; Glucose 115 mg/dL (75-110); Potassium 4.4 mmol/L (3.4-5.0); Sodium 124 mmol/L (137-145)
[2020-07-24] MEDS: chlordiazePOXIDE (*CRX) 25 MG CAPSULE 50 MG PO (23:03)
[2020-07-24] MEDS: METOPROLOL TARTRATE 50 MG TAB 100 MG PO (23:03)
[2020-07-24] MEDS: FUROSEMIDE INJ 40 MG/4 ML VIAL IV PUSH (23:03)
[2020-07-24] MEDS: hydrALAZINE HCL 20 MG/ML VIAL 10 MG IV PUSH (23:09)
[2020-07-24] MEDS: HYDROcodone/acetaminophen (*CRX) 5-325 MG TABLET 1 TAB PO (23:09)
[2020-07-25] VITALS (15 sets, daily range): BP systolic 110–144; BP diastolic 63–88; PULSE 59–136; RESP 16–20; TEMP 36.1–36.3; O2SAT 91–98
[2020-07-25 04:59] LABS: Basophils Absolute Auto 0.1 K/mm3 (0.0-0.1); Basophils Percent Auto 0.8 % (0.2-1.2); Eosinophils Absolute Auto 0.2 K/mm3 (0-0.3); Eosinophils Percent Auto 1.3 % (0-4.4); Hematocrit 37.9 % (42.0-52.0); Hemoglobin 13.9 g/dL (14.0-18.0); Immature Granulocyte Absolute 0.07 K/mm3 (0.00-0.031); Immature Granulocyte Percent A 0.6 % (0-0.5); Lymphocytes Absolute Auto 1.74 K/mm3 (0.9-3.2); Lymphocytes Percent Auto 15.4 % (18.3-44.2); Mean Corpuscular HGB Conc 36.7 g/dl (32-36); Mean Corpuscular Hemoglobin 36.6 pg (26-34); Mean Corpuscular Volume 99.7 fl (80-100); Mean Platelet Volume 8.7 fl (7.4-10.4); Monocytes Absolute Auto 1.4 K/mm3 (0.1-0.6); Monocytes Percent Auto 12.4 % (2.6-8.5); Neutrophils Absolute Auto 7.9 K/mm3 (1.3-6.7); Neutrophils Percent Auto 69.5 % (45.5-73.1); Platelet Count Result 201 k/mm3 (150-375); Red Cell Distribution Width 16.8 % (11.5-14.5); White Blood Count 11.3 K/mm3 (4.5-10.0)
[2020-07-25 05:18] LABS: Alanine Aminotransferase 29 U/L (4-50); Albumin Level 3.1 g/dL (3.5-5.1); Alkaline Phosphatase 153 U/L (38-126); Anion Gap 4 mmol/L (8-16); Aspartate Amino Transferase 114 U/L (17-59); Bilirubin,Total 2.9 mg/dL (0.2-1.3); Blood Urea Nitrogen 5 mg/dL (9-20); Calcium 7.6 mg/dL (8.4-10.2); Carbon Dioxide 26 mmol/L (22-30); Chloride 93 mmol/L (98-107); Estimated CRCL calculation 152 ml/min; Estimated Glomerular Filt Rate > 60; Glucose 98 mg/dL (75-110); Magnesium 1.8 mg/dL (1.6-2.3); Potassium 4.2 mmol/L (3.4-5.0); Sodium 123 mmol/L (137-145)
[2020-07-25] MEDS: FOLIC ACID 1 MG TABLET PO (08:32)
[2020-07-25] MEDS: chlordiazePOXIDE (*CRX) 25 MG CAPSULE 50 MG PO ×4 (08:32→23:22)
[2020-07-25] MEDS: METOPROLOL TARTRATE 50 MG TAB 100 MG PO ×2 (08:33→20:26)
[2020-07-25] MEDS: THIAMINE HCL 100 MG TABLET PO (08:33)
[2020-07-25] MEDS: FUROSEMIDE 40 MG TABLET PO (08:33)
[2020-07-25] MEDS: SPIRONOLACTONE 50 MG TABLET 100 MG PO (08:34)
[2020-07-25 09:42] LABS: Total Triiodothyronine (T3) 1.25 NG/ML (0.97-1.69)
--- NOTE | 2020-07-25 13:10 | PM.IMPN ---
Progress Note: A&P Assessment and Plan (1) Ascites: Code(s): R18.8 - Other ascites Status: Acute Assessment and Plan: The patient has been on Lasix and spironolactone. Pt is going for paracentesis for ascites (2) Tachycardia: Code(s): R00.0 - Tachycardia, unspecified Status: Acute Assessment and Plan: The patient is on metoprolol. (3) Hypertension: Code(s): I10 - Essential (primary) hypertension Status: Acute Assessment and Plan: Continue with metoprolol. Bp is 117/65 (4) Alcohol abuse: Code(s): F10.10 - Alcohol abuse, uncomplicated Status: Acute Assessment and Plan: We had a long discussion about rehab and sustaining from alcohol. Pt wants to stop. Pt has tried before, Watch for any DT. (5) Tobacco dependence: Code(s): F17.200 - Nicotine dependence, unspecified, uncomplicated Status: Chronic Assessment and Plan: Counselled about smoking cessation (6) Hyponatremia: Code(s): E87.1 - Hypo-osmolality and hyponatremia Status: Acute Assessment and Plan: Most likely this is due to his alcohol use. sodium is 123. Subjective Date/time seen: 07/25/20 13:10 Review of Systems Review of Systems: All systems reviewed & are unremarkable except as noted in HPI and below Exam Const: General: cooperative and comfortable Nutritional Appearance: obese Orientation/consciousness: oriented to person, oriented to place, oriented to time and patient oriented x3 Chest: Chest palpation & inspection: normal inspection of the chest Resp: Effort & Inspection: normal respiratory effort Auscultation: clear to auscultation bilaterally Cardio: Rate: regular rate Rhythm: regular rhythm Heart sounds: S1 normal heart sound present and S2 normal heart sound present Peripheral pulses: Peripheral pulses 2+ throughout GI: Inspection: normal to inspection Auscultation: normal bowel sounds Back/Spine/Pelvis: Thoracic/Lumbar Spine: thoracic and lumbar spine normal to inspection Pelvis: no pain with anterior-posterior compression Neuro: General: oriented to person, oriented to place, oriented to time and patient oriented x3 Cranial nerves: Yes Equal, round and reactive pupils present and Yes Normal hearing present Cognition (Neuro): normal cognition Speech: normal speech Gait exam (Neuro): Normal gait present Motor exam (neuro): 5/5 motor strength present throughout Sensory Exam: normal sensation Extrem: General: normal to inspection Right upper extremity: normal to inspection Left upper extremity: normal to inspection Right lower extremity: normal to inspection Left lower extremity: normal to inspection Psych: Appearance: grossly normal Mental Status: mental status grossly normal Speech and movement: Normal speech and movement present Affect: normal affect Attitude: cooperative Thought process: Normal thought process present Insight: Fair insight present (Psych) Judgement: Fair judgement present (Psych) Objective Data Vital Signs Vital Signs: Vital Signs - 24 hr 07/24/20 15:35 07/24/20 17:36 07/24/20 17:38 Temperature 36.3 C L Pulse Rate 133 H 130 H 131 H Respiratory Rate 20 20 Blood Pressure 176/91 H 146/6 H Pulse Oximetry 99 97 07/24/20 19:40 07/24/20 20:22 07/24/20 22:00 Temperature 37.0 C Pulse Rate 128 H 136 H 122 H Respiratory Rate 20 20 Blood Pressure 148/86 H 151/95 H Pulse Oximetry 99 95 07/24/20 23:03 07/24/20 23:49 07/24/20 23:56 Temperature 36.9 C Pulse Rate 107 H 138 H Respiratory Rate 18 Blood Pressure 163/95 H 163/95 H Pulse Oximetry 96 07/25/20 00:00 07/25/20 02:00 07/25/20 04:00 Temperature 36.3 C L Pulse Rate 136 H 95 59 L Respiratory Rate 18 Blood Pressure 133/88 Pulse Oximetry 96 07/25/20 06:00 07/25/20 08:00 07/25/20 08:33 Temperature 36.1 C L Pulse Rate 92 93 96 Respiratory Rate 20 Blood Pressure 125/78 Pulse Oximetry
--- NOTE | 2020-07-25 14:09 | WPDGICN ---
Assessment and Plan Assessment and plan (1) Alcoholic cirrhosis of liver with ascites: Code(s): K70.31 - Alcoholic cirrhosis of liver with ascites Status: Acute Assessment and Plan: decompensated cirrhosis with ascites, MELD score 12 continue with lasix and aldactone, will need also 2g na diet and most importantly quit alcohol- he says that tried AA and other resources in the past but still drinking I explained that he has end stage liver disease and ideally will need to see shoe fitter in case of more decompensation and complications, of course he needs to stop drinking and if sicker may need liver transplant evaluation later on. Liver work up in the past negative for other causes of cirrhosis, this is alcohol related. Will do EGD tomorrow to assess if varices, PHG, etc he also needs liver ultrasound every 6 months for HCC surveillance also get more another paracentesis tomorrow (abdomen still distended), order with iv albumin. (2) Alcoholism: Code(s): F10.20 - Alcohol dependence, uncomplicated Status: Acute Assessment and Plan: monitor for eoth withdrawal medical management with mvi, thiamine and nutrition support (3) Hyponatremia: Code(s): E87.1 - Hypo-osmolality and hyponatremia Status: Acute Assessment and Plan: from cirrhosis, alcohol use, etc continue to monitor (4) Tobacco dependence: Code(s): F17.200 - Nicotine dependence, unspecified, uncomplicated Status: Chronic (5) Elevated liver function tests: Code(s): R79.89 - Other specified abnormal findings of blood chemistry Status: Acute Assessment and Plan: from alcohol abuse and cirrhosis (6) Colon cancer screening: Code(s): Z12.11 - Encounter for screening for malignant neoplasm of colon Status: Acute Assessment and Plan: he says that had colonoscopy about 2 years ago. GI Consult Note Consult date/time: 07/25/20 14:09 Reason for consult: ascites, alcohol abuse, cirrhosis HPI: Kinsey Rivera is a 50 year old male with alcoholism, normally will drink ~ 20 a day for years. Diagnosed with cirrhosis about 1 year ago after had paracentesis and now using diuretics at home but he is not establish with any GI/shoe fitter, also history of HTN. He is here with increase abdominal girth concerning for ascites again. His alcohol level again positive and admitted to hospital, he just came back from 5L paracentesis and feeling better but still asking for more to be removed. ELODIA, AMA and hepatitis panel negative in the past. He had colonoscopy about 2 years ago, never had EGD. Denies melena or gib. Review of Systems Constitutional: Constitutional: Denies difficulty sleeping Eyes: Eyes: Reports no additional eye complaints ENT: Reports Normal hearing present Cardiovascular: Cardiovascular: Denies chest pain Respiratory: Respiratory: Denies cough Gastrointestinal: Gastrointestinal: Reports abdominal pain, Denies melena and Denies hematochezia Genitourinary: Genitourinary: Denies dysuria Musculoskeletal: Musculoskeletal: Denies neck pain Integumentary/Breasts: Skin/Breast: Denies dry skin Neurologic: Denies headache(s) Psychiatric: Psychiatric: Reports anxiety PMFSH Past Medical History Medical History (Updated 07/25/20 @ 14:33 by Al Cueto MD) Adenomatous colon polyp Alcohol abuse Alcoholic cirrhosis of liver Anal fissure August 2016 Colon cancer screening Depression Diastolic dysfunction Noted on echocardiogram from 2017 Elevated liver function tests Essential hypertension Fatty liver Hypertension Hypertrophic cardiomyopathy Noted on echocardiogram 2016 IBS (irritable bowel syndrome) Medial meniscus tear Nicotine dependence Tear of medial meniscus of right knee, current Tobacco dependence Surgical History Surgical History (Updated 07/24/20 @ 22:07 by Lizz Holder NP) H/O knee surgery right H/O umbilical hernia repair
[2020-07-25] MEDS: ALBUMIN HUMAN 25% 25 GM/100 ML 100 ML IVPB (14:31)
[2020-07-26] VITALS (19 sets, daily range): BP systolic 101–141; BP diastolic 53–87; PULSE 81–94; RESP 16–22; TEMP 36.2–36.8; O2SAT 95–98
[2020-07-26 05:17] LABS: Anion Gap 1 mmol/L (8-16); Blood Urea Nitrogen 8 mg/dL (9-20); Calcium 7.9 mg/dL (8.4-10.2); Carbon Dioxide 31 mmol/L (22-30); Chloride 96 mmol/L (98-107); Estimated CRCL calculation 130 ml/min; Estimated Glomerular Filt Rate > 60; Glucose 86 mg/dL (75-110); Sodium 128 mmol/L (137-145)
[2020-07-26] MEDS: chlordiazePOXIDE (*CRX) 25 MG CAPSULE 50 MG PO ×3 (06:12→23:06)
[2020-07-26] MEDS: NICOTINE (*PBKC) 21 MG PATCH 1 PATCH TRANSDERM (08:19)
--- NOTE | 2020-07-26 08:25 | PC.NURSE ---
Patient to GI Lab via stretcher. Report given to LETICIA Lucia.
[2020-07-26] MEDS: LACTATED RINGERS 1,000 ML 150 ML IV CONT (08:39)
--- NOTE | 2020-07-26 09:38 | WPDANESEPPF ---
Anes - Initial Pre Proc Eval Procedure: Operation Date: 07/26/20 13:30 Proposed Procedures p Esophagogastroduodenoscopy - Al Cueto MD Date/Time: 07/26/20 09:38 Surgeon: Anisa Gaffney MD Pre Op Diagnosis: alcoholic cirrhosis/shortness of breath/ascites/et Patient Data Age: 50 Gender: M Height: 5 ft 11 in Weight: 100 kg Last Vital Signs Temp 97.9 F 07/26/20 08:36 Pulse 87 07/26/20 08:36 Resp 18 07/26/20 08:36 BP 131/77 07/26/20 08:36 Pulse Ox 96 07/26/20 08:36 Allergies Allergy/AdvReac Type Severity Reaction Status Date / Time bee venom protein (honey bee) Allergy Severe Swelling Verified 07/26/20 08:35 [bees] acetaminophen [From Percocet] AdvReac Itching Verified 07/26/20 08:35 oxycodone [From Percocet] AdvReac Itching Verified 07/26/20 08:35 Home Medications Medication Instructions Recorded Confirmed Type furosemide 40 mg tablet 40 mg PO DAILY #30 tablet 06/06/20 07/24/20 Rx metoprolol tartrate 50 mg tablet 100 mg PO Q12H #360 tablet 06/14/20 07/24/20 Rx spironolactone 50 mg tablet 100 mg PO DAILY #180 tablet 06/14/20 07/24/20 Rx Laboratory Tests 07/25/20 07/26/20 04:32 04:27 Sodium 128 mmol/L L mmol/L (137-145) Potassium 4.0 mmol/L mmol/L (3.4-5.0) Chloride 96 mmol/L L mmol/L (98-107) Carbon Dioxide 31 mmol/L H mmol/L (22-30) Anion Gap 1 mmol/L L mmol/L (8-16) BUN 8 mg/dL L mg/dL (9-20) Creatinine 0.70 mg/dL mg/dL (0.7-1.3) Estim Creat Clear Calc 130 ml/min ml/min Estimated GFR > 60 (59 - ) Glucose 86 mg/dL mg/dL (75-110) Calcium 7.9 mg/dL L mg/dL (8.4-10.2) Total T3 1.25 NG/ML NG/ML (0.97-1.69) Patient hx anesthesia problems: none Family hx anesthesia problems: none PMFSH Past Medical History Medical History (Updated 07/25/20 @ 14:33 by Al Cueto MD) Adenomatous colon polyp Alcohol abuse Alcoholic cirrhosis of liver Anal fissure August 2016 Colon cancer screening Depression Diastolic dysfunction Noted on echocardiogram from 2016 Elevated liver function tests Essential hypertension Fatty liver Hypertension Hypertrophic cardiomyopathy Noted on echocardiogram 2016 IBS (irritable bowel syndrome) Medial meniscus tear Nicotine dependence Tear of medial meniscus of right knee, current Tobacco dependence Surgical History Surgical History (Updated 07/24/20 @ 22:07 by Lizz Holder NP) H/O knee surgery right H/O umbilical hernia repair History of colonoscopy with polypectomy August [address] Lunsford demonstrated internal hemorrhoids with stigmata of bleeding, 1 colon polyp, and acute anal fissure Family History Family History Father Hypertension Sibling Alcohol abuse 3 brothers Father Colon polyp Mother Colon polyp Social History Social History (Updated 07/24/20 @ 22:12 by Lizz Holder NP) Social History: The patient has 3 children. He lives with a fiancee. He is a full code and states that his fiancee is a durable power health care attorney for healthcare. The patient stated that he drinks at least 20 drinks a day whether it is beer makes drinks. He mixes them up during the day. He said he never feels drawn when he drinks. He does not go through any withdrawals he stated. 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 He is currently on leave from his job due to workman's comp over right knee injury. The patient has ap
--- NOTE | 2020-07-26 10:53 | PC.NURSE ---
Patient returned to room following EGD.
[2020-07-26] MEDS: FOLIC ACID 1 MG TABLET PO (11:07)
[2020-07-26] MEDS: THIAMINE HCL 100 MG TABLET PO (11:07)
[2020-07-26] MEDS: HYDROcodone/acetaminophen (*CRX) 5-325 MG TABLET 1 TAB PO (11:07)
[2020-07-26] MEDS: METOPROLOL TARTRATE 50 MG TAB 100 MG PO ×2 (11:07→20:47)
[2020-07-26] MEDS: SPIRONOLACTONE 50 MG TABLET 100 MG PO (11:08)
[2020-07-26] MEDS: FUROSEMIDE 40 MG TABLET PO (11:10)
[2020-07-26] MEDS: PANTOPRAZOLE 40 MG TABLET PO (12:17)
--- NOTE | 2020-07-26 12:52 | PM.IMPN ---
Progress Note: A&P Assessment and Plan (1) Ascites: Code(s): R18.8 - Other ascites Status: Acute Assessment and Plan: The patient has been on Lasix and spironolactone. Pt is going for paracentesis for ascites 07/26/20 12:52 Patient is 50 y/o with long history of alcohol abuse presented to ER with c/o abdominal swelling and pain, as patient was diagnosed with liver cirrhosis about a year ago 2/2 alcohol abuse, patient was complaining of abdominal pain, enlarged abdomen and difficulty with breathing patient had a paracentesis and 5 L was removed on 06/24 patient still has abdominal swelling and somewhat difficulty breathing patient is scheduled for another paracentesis today and albumin will be given, patient also seen by GI had a EGD today showed moderate inflammatory gastritis as well as portal hypertension, again patient is requested to stop drinking alcohol, melissa is present in the room instructed the patient will need to be seen sports complex attendant. (2) Tachycardia: Code(s): R00.0 - Tachycardia, unspecified Status: Acute Assessment and Plan: The patient is on metoprolol. (3) Hypertension: Code(s): I10 - Essential (primary) hypertension Status: Acute Assessment and Plan: Continue with metoprolol. Bp is 117/65 (4) Alcohol abuse: Code(s): F10.10 - Alcohol abuse, uncomplicated Status: Acute Assessment and Plan: We had a long discussion about rehab and sustaining from alcohol. Pt wants to stop. Pt has tried before, Watch for any DT. (5) Tobacco dependence: Code(s): F17.200 - Nicotine dependence, unspecified, uncomplicated Status: Chronic Assessment and Plan: Counselled about smoking cessation (6) Hyponatremia: Code(s): E87.1 - Hypo-osmolality and hyponatremia Status: Acute Assessment and Plan: Most likely this is due to his alcohol use. sodium is 123. Subjective Date/time seen: 07/26/20 12:52 Patient is 50 y/o with long history of alcohol abuse presented to ER with c/o abdominal swelling and pain, as patient was diagnosed with liver cirrhosis about a year ago 2/2 alcohol abuse, patient was complaining of abdominal pain, enlarged abdomen and difficulty with breathing patient had a paracentesis and 5 L was removed on 06/24 patient still has abdominal swelling and somewhat difficulty breathing patient is scheduled for another paracentesis today and albumin will be given, patient also seen by GI had a EGD today showed moderate inflammatory gastritis as well as portal hypertension, again patient is requested to stop drinking alcohol, melissa is present in the room instructed the patient will need to be seen sports complex attendant. Review of Systems Review of Systems: All systems reviewed & are unremarkable except as noted in HPI and below Exam Narrative: Exam Narrative: Patient appears chronically ill older than his age Patient is comfortable, NAD HEENT: eyes are clear and none icteric LUNGS:CTA HEART: RR S1S2 ABD: enlarged ascites bowel sounds faint diffusely tender Lower extremities: no edema SKIN: nonjaundiced Neuro: grossly intact. Objective Data Vital Signs Vital Signs: Vital Signs - 24 hr 07/25/20 14:00 07/25/20 16:00 07/25/20 18:00 Temperature 97.2 F L Pulse Rate 87 94 103 H Pulse Rate [Bilateral Pedal (Dorsalis Pedis) Palpation] Respiratory Rate 16 Blood Pressure 144/86 H Pulse Oximetry 96 07/25/20 20:00 07/25/20 20:26 07/25/20 22:00 Temperature 97.4 F L Pulse Rate 98 101 H 90 Pulse Rate [Bilateral Pedal (Dorsalis Pedis) Palpation] Respiratory Rate 17 Blood Pressure 110/63 Pulse Oximetry 98 07/26/20 00:00 07/26/20 02:00 07/26/20 03:30 Temperature 97.2 F L 97.7 F Pulse Rate 87 92 86 Pulse Rate [Bilateral Pedal (Dorsalis Pedis) Palpation] Respiratory Rate 18 16 Blood Pressure 141/53 H 126/68 Pulse Oximetry 98 98 07/26/20 04:00 07/26/20 06:00 07/26/20 08:00
[2020-07-26] MEDS: ALBUMIN HUMAN 25% 25 GM/100 ML 100 ML IVPB ×2 (13:29→15:15)
[2020-07-26 15:15] LABS: Appearance Peritoneal Fluid Cloudy (Clear); Color Peritoneal Fluid Yellow (Colorless); Lymphocytes Peritoneal Fluid 26 %; Macrophages Peritoneal Fluid 40 %; Mesothelial Cells Peritoneal Fluid 26 %; Neutrophils Peritoneal Fluid 8 % (0-25); Nucleated Cells Peritoneal Flu 312 /uL (0-500); RBC Peritoneal Fluid 1819 /uL (0-100000); Source Peritoneal Fluid Peritoneal Fluid
[2020-07-27] VITALS: PULSE 86
[2020-07-27 04:00] VITALS: BP 128/80; PULSE 82; PULSE 83; RESP 18; TEMP 36.7; O2SAT 96
[2020-07-27 05:25] LABS: Hematocrit 39.8 % (42.0-52.0); Hemoglobin 13.9 g/dL (14.0-18.0); Mean Corpuscular HGB Conc 34.9 g/dl (32-36); Mean Corpuscular Hemoglobin 36.9 pg (26-34); Mean Corpuscular Volume 105.6 fl (80-100); Mean Platelet Volume 8.5 fl (7.4-10.4); Platelet Count Result 172 k/mm3 (150-375); Red Blood Count 3.77 M/mm3 (4.6-6.20); Red Cell Distribution Width 17.2 % (11.5-14.5); White Blood Count 8.4 K/mm3 (4.5-10.0)
[2020-07-27 05:44] LABS: Alanine Aminotransferase 23 U/L (4-50); Albumin Level 3.2 g/dL (3.5-5.1); Alkaline Phosphatase 136 U/L (38-126); Anion Gap 3 mmol/L (8-16); Aspartate Amino Transferase 76 U/L (17-59); Bilirubin,Total 1.5 mg/dL (0.2-1.3); Blood Urea Nitrogen 8 mg/dL (9-20); Calcium 7.7 mg/dL (8.4-10.2); Carbon Dioxide 30 mmol/L (22-30); Chloride 98 mmol/L (98-107); Estimated CRCL calculation 115 ml/min; Estimated Glomerular Filt Rate > 60; Glucose 96 mg/dL (75-110); Magnesium 2.1 mg/dL (1.6-2.3); Potassium 4.4 mmol/L (3.4-5.0); Sodium 131 mmol/L (137-145)
[2020-07-27] MEDS: chlordiazePOXIDE (*CRX) 25 MG CAPSULE 50 MG PO (05:45)
[2020-07-27 08:00] VITALS: BP 125/75; PULSE 82; PULSE 86; RESP 20; TEMP 36.4; O2SAT 98
[2020-07-27] MEDS: SPIRONOLACTONE 50 MG TABLET 100 MG PO (09:02)
[2020-07-27] MEDS: FOLIC ACID 1 MG TABLET PO (09:02)
[2020-07-27 09:03] VITALS: PULSE 85
[2020-07-27] MEDS: METOPROLOL TARTRATE 50 MG TAB 100 MG PO (09:03)
[2020-07-27] MEDS: PANTOPRAZOLE 40 MG TABLET PO (09:03)
[2020-07-27] MEDS: NICOTINE (*PBKC) 21 MG PATCH 1 PATCH TRANSDERM (09:03)
[2020-07-27] MEDS: THIAMINE HCL 100 MG TABLET PO (09:03)
[2020-07-27] MEDS: FUROSEMIDE 40 MG TABLET PO (09:03)
--- NOTE | 2020-07-27 09:24 | WPDANESPN ---
Anes - Prog Note Post-Op Date/Time: 07/27/20 09:24 Cardiovascular status: normal Respiratory status: normal Airway patency: baseline Mental status: baseline Post-Op hydration status: normal Vital Signs: Last Vital Signs Temp 36.4 C 07/27/20 08:00 Pulse 85 07/27/20 09:03 Resp 20 07/27/20 08:00 BP 125/75 07/27/20 08:00 Pulse Ox 98 07/27/20 08:00 Pain Score (VAS): 0 I/O: Intake & Output 07/26/20 07/27/20 07/27/20 23:59 07:59 15:59 Intake Total 590 500 Output Total 600 400 Balance -10 100 Laboratory Tests 07/27/20 04:35 07/27/20 04:35 07/26/20 07/26/20 07/27/20 12:32 12:32 04:35 WBC 8.4 RBC 3.77 L Hgb 13.9 L Hct 39.8 L MCV 105.6 H D MCH 36.9 H MCHC 34.9 RDW 17.2 H Plt Count 172 MPV 8.5 Sodium Potassium Chloride Carbon Dioxide Anion Gap BUN Creatinine Estim Creat Clear Calc Estimated GFR Glucose Calcium Magnesium Total Bilirubin AST ALT Alkaline Phosphatase Total Protein Albumin Peritoneal Source Peritoneal fluid Peritoneal Color Yellow Peritoneal Appearance Cloudy A Peritoneal RBC 1819 Periton Nuc Cells 312 Periton Neutrophils 8 Periton Lymphocytes 26 Periton Mesothelial 26 Periton Macrophages 40 Peritoneal Albumin Pending 07/27/20 04:35 WBC RBC Hgb Hct MCV MCH MCHC RDW Plt Count MPV Sodium 131 L Potassium 4.4 Chloride 98 Carbon Dioxide 30 Anion Gap 3 L BUN 8 L Creatinine 0.80 Estim Creat Clear Calc 115 Estimated GFR > 60 Glucose 96 Calcium 7.7 L Magnesium 2.1 Total Bilirubin 1.5 H AST 76 H ALT 23 Alkaline Phosphatase 136 H Total Protein 7.0 Albumin 3.2 L Peritoneal Source Peritoneal Color Peritoneal Appearance Peritoneal RBC Periton Nuc Cells Periton Neutrophils Periton Lymphocytes Periton Mesothelial Periton Macrophages Peritoneal Albumin Post-procedural complaints: none Patient Feedback: Patient satisfied with anesthetic care.
--- NOTE | 2020-07-27 11:03 | PM.DS ---
DS: Admitting Diagnosis Admitting Diagnosis Admitting Diagnosis: Chief Complaint: Abdominal distension DS: Discharge Diagnosis Discharge Diagnosis (1) Ascites: Code(s): R18.8 - Other ascites Status: Acute Assessment and Plan: The patient has been on Lasix and spironolactone. Pt is going for paracentesis for ascites 07/26/20 12:52 Patient is 50 y/o with long history of alcohol abuse presented to ER with c/o abdominal swelling and pain, as patient was diagnosed with liver cirrhosis about a year ago 2/ alcohol abuse, patient was complaining of abdominal pain, enlarged abdomen and difficulty with breathing patient had a paracentesis and 5 L was removed on 06/24 patient still has abdominal swelling and somewhat difficulty breathing patient is scheduled for another paracentesis today and albumin will be given, patient also seen by GI had a EGD today showed moderate inflammatory gastritis as well as portal hypertension, again patient is requested to stop drinking alcohol, esvine is present in the room instructed the patient will need to be seen director of marketing. (2) Tachycardia: Code(s): R00.0 - Tachycardia, unspecified Status: Acute Assessment and Plan: The patient is on metoprolol. (3) Hypertension: Code(s): I10 - Essential (primary) hypertension Status: Acute Assessment and Plan: Continue with metoprolol. Bp is 117/65 (4) Alcohol abuse: Code(s): F10.10 - Alcohol abuse, uncomplicated Status: Acute Assessment and Plan: We had a long discussion about rehab and sustaining from alcohol. Pt wants to stop. Pt has tried before, Watch for any DT. (5) Tobacco dependence: Code(s): F17.200 - Nicotine dependence, unspecified, uncomplicated Status: Chronic Assessment and Plan: Counselled about smoking cessation (6) Hyponatremia: Code(s): E87.1 - Hypo-osmolality and hyponatremia Status: Acute Assessment and Plan: Most likely this is due to his alcohol use. sodium is 123. DS: Summary Hospital Course Reason for hospitalization: patient who has a long-term history of alcoholism. The patient stated that he had a paracentesis a long time ago but has not required 1 since then. The patient stated that he had an appointment to come here in the past and they did an ultrasound and found no fluid on his abdomen to be drained because the medication was working. The patient takes Lasix and spironolactone routinely for his cirrhosis of the liver. The patient does not have a regular GI specialist. The patient stated that he has been having problems breathing for the last few months and that his abdomen has gotten worse over the last few months. The patient stated he last drink this morning. He tells me that he drinks about 20 drinks a day whether that it is beer or mixed drink. He denies having any alcohol withdrawals. Chest x-ray was read as no acute cardiopulmonary disease. Patient's abdomen is greatly distended. The patient had been given IV fluids in the emergency room and was discontinued. The patient is being admitted to observation status on 07/24/2020. Hospital Course: Patient is 50 y/o with long history of alcohol abuse presented to ER with c/o abdominal swelling and pain, as patient was diagnosed with liver cirrhosis about a year ago 2/2 alcohol abuse, patient was complaining of abdominal pain, enlarged abdomen and difficulty with breathing patient had a paracentesis and 5 L was removed on 06/24 patient still has abdominal swelling and somewhat difficulty breathing patient is scheduled for another paracentesis today and albumin will be given, patient also seen by GI had a EGD today showed moderate inflammatory gastritis as well as portal hypertension, again patient is requested to stop drinking alcohol, melissa is present in the room instructed the patient will need to be seen director of marketing. patient is clinically stable, patient had paracentesis
[2020-07-29 06:03] LABS: Albumin Peritoneal Fluid 0.6 g/dL
== END 2020-07-27 12:02 | disposition home or self-care (01) | DRG 280 ==
LOC: ANHED 16:43 → ANHIMU 18:23
PROVIDERS: Family Medicine; Internal Medicine Gastroenterology; Nurse Practitioner; Admitting Provider Hospitalist; Emergency Provider Emergency Medicine; PCP Family Medicine; Visit Provider Family Medicine
PROC: 0DJ08ZZ Inspection of Upper Intestinal Tract, Via Natural or Artificial Opening Endoscopic (ICD-10-PCS; CPT 43235; principal; 2020-07-26 13:30)
DX: K70.31 Alcoholic cirrhosis of liver with ascites (principal); K76.6 Portal hypertension; F10.20 Alcohol dependence, uncomplicated; K31.89 Other diseases of stomach and duodenum; E87.1 Hypo-osmolality and hyponatremia; K25.7 Chronic gastric ulcer without hemorrhage or perforation; I85.00 Esophageal varices without bleeding; R00.0 Tachycardia, unspecified; I10 Essential (primary) hypertension; F17.210 Nicotine dependence, cigarettes, uncomplicated; K58.9 Irritable bowel syndrome, unspecified; F32.9 Major depressive disorder, single episode, unspecified
CPT/HCPCS: 36415; 49083; 71046; 80048; 80053; 80307; 82042; 83605; 83735; 84439; 84443; 84480; 85025; 85027; 85610; 85730; 87070; 87075; 87205; 88108; 88305; 88342; 89051; 96374; 96375; 99285; A9270; G0378; G0379; J0360; J1940; J2704; J7030; J7120; P9047

== ENCOUNTER 2020-08-12 08:54 | Outpatient (CLI) | payer OTHER, SELFPAY ==
--- NOTE | ~2020-08-12 | US_ITS ---
US abdomen limited DATE: 08/12/2020 09:56 INDICATION: Cirrhosis, ascites TECHNIQUE: Real-time imaging of liver, pancreas, gallbladder areas COMPARISON: 10/2019 CT abdomen pelvis FINDINGS: There is ascites. Hepatic surface nodularity, consistent with cirrhosis. There is flow reversal evident at the portal vein. No gallstones or gallbladder wall thickening. Negative sonographic Elizabeth's sign. The common bile duct measures 5 mm. The pancreas is not well demonstrated. IMPRESSION: Cirrhosis, ascites Reviewed, dictated and finalized at [facility]. Reviewed, dictated and finalized at location A. IMPRESSION: Cirrhosis, ascites
[2020-08-12 09:08] LABS: Basophils Absolute Auto 0.14 K/mm3 (0.00-0.10); Basophils Percent Auto 1.4 % (0.0-1.0); Hematocrit 44.3 % (40.0-54.0); Hemoglobin 15.3 g/dL (14.0-18.0); Immature Granulocyte Absolute 0.03 K/mm3 (0.00-0.00); Immature Granulocyte Percent A 0.3 % (0.0-0.0); Lymphocytes Absolute Auto 2.12 K/mm3 (1.10-4.50); Lymphocytes Percent Auto 20.8 % (18.0-42.0); Mean Corpuscular HGB Conc 34.5 g/dL (32.0-36.0); Mean Corpuscular Volume 104.2 fL (78.0-102.0); Mean Platelet Volume 8.7 fl (8.7-11.0); Monocytes Absolute Auto 1.16 K/mm3 (0.10-0.90); Monocytes Percent Auto 11.4 % (2.0-11.0); Neutrophils Absolute Auto 6.5 K/mm3 (1.7-7.2); Neutrophils Percent Auto 64.1 % (50.0-70.0); Platelet Count Result 286 K/mm3 (150-420); Red Blood Count 4.25 M/mm3 (4.70-6.10); Red Cell Distribution Width 14.8 % (11.6-14.4); White Blood Count 10.2 K/mm3 (4.8-10.8)
[2020-08-12 10:07] LABS: Alanine Aminotransferase 33 U/L (16-63); Albumin Level 2.9 g/dL (3.4-5.0); Alkaline Phosphatase 172 U/L (46-116); Anion Gap 9 mmol/L (8-16); Aspartate Amino Transferase 76 U/L (15-37); Bilirubin,Total 1.2 mg/dL (0.00-1.00); Blood Urea Nitrogen 6 mg/dL (7-18); Calcium 8.7 mg/dL (8.5-10.1); Carbon Dioxide 30 mmol/L (21-32); Chloride 95 mmol/L (98-108); Estimated Glomerular Filt Rate > 60; Glucose 137 mg/dL (70-99); Osmolality Calculated 277 mOsm/kg (285-295); Potassium 4.1 mmol/L (3.5-5.1); Sodium 134 mmol/L (136-145); Total Protein 7.9 g/dL (6.4-8.2)
== END 2020-08-12 08:55 | disposition home or self-care (01) ==
LOC: CHSIMG 08:57
PROVIDERS: PCP Family Medicine; Visit Provider Nurse Practitioner Family
DX: R18.8 Other ascites (principal); K70.0 Alcoholic fatty liver
CPT/HCPCS: 36415; 76705; 80053; 85025

== ENCOUNTER 2020-08-16 07:31 | Outpatient (CLI) | payer OTHER, SELFPAY ==
--- NOTE | ~2020-08-16 | US_ITS ---
US paracentesis abd w/image DATE: 08/16/2020 08:45 INDICATION: Ascites, portal hypertension TECHNIQUE: Using ultrasound imaging, a site for percutaneous access was identified in the lateral lef t midabdomen. The skin was repaired with sterile Betadine solution. 1% lidocaine local anesthetic was administered to the skin and underlying subcutaneous tissues. A small skin incision was made. A sing le stick needle/catheter was introduced uneventfully into the abdominal cavity, yielding clear yellow deandre ascites. 5 mm of clear yellowish ascites was drained without patient complaint or apparent complication. IMPRESSION: Percutaneous ultrasound-guided drainage of 5 L of clear yellowish ascites, without patien t complaint or apparent complication Reviewed, dictated and finalized at [facility]. Reviewed, dictated and finalized at location D. IMPRESSION: Percutaneous ultrasound-guided drainage of 5 L of clear yellowish a scites, without patient complaint or apparent complication
[2020-08-16 07:49] LABS: Hematocrit 44.7 % (40.0-54.0); Hemoglobin 15.5 g/dL (14.0-18.0); Mean Corpuscular HGB Conc 34.7 g/dL (32.0-36.0); Mean Corpuscular Hemoglobin 35.7 pg (27.0-31.0); Mean Platelet Volume 8.5 fl (8.7-11.0); Platelet Count Result 285 K/mm3 (150-420); Red Blood Count 4.34 M/mm3 (4.70-6.10); Red Cell Distribution Width 14.8 % (11.6-14.4); White Blood Count 10.2 K/mm3 (4.8-10.8)
[2020-08-16 08:04] LABS: INR 1.2; Partial Thromboplastin Time 29.1 SEC (23.90-30.70); Prothrombin Time 13.1 Seconds (9.50-12.10)
== END 2020-08-16 07:32 | disposition home or self-care (01) ==
PROVIDERS: PCP Family Medicine; Visit Provider Nurse Practitioner Family
DX: R18.8 Other ascites (principal); K76.6 Portal hypertension
CPT/HCPCS: 36415; 49083; 85027; 85610; 85730

== ENCOUNTER 2020-08-26 08:47 | Outpatient (CLI) | payer OTHER, SELFPAY ==
--- NOTE | ~2020-08-26 | US_ITS ---
EXAMINATION: US paracentesis abd w/image DATE: 08/26/2020 10:17 INDICATION: Ascites. TECHNIQUE: The procedure and its risks and benefits were discussed with the patient. Potential risks discussed included bleeding and infection. The skin was prepared and draped in sterile fashion. 1% li docaine was used for local anesthesia. Under ultrasound guidance, a 5 Fr catheter with trochar was ad vanced into the ascites in the left lower quadrant. Fluid was aspirated into vacuum bottles. The cath eter was removed, and a dressing was applied. There were no immediate complications. FINDINGS: Ultrasound images demonstrate ascites and the catheter within the fluid. IMPRESSION: 1. Successful ultrasound-guided paracentesis yielding 5000 mL of yellow fluid. Reviewed, dictated and finalized at location B.
[2020-08-26 09:00] LABS: Basophils Percent Auto 0.9 % (0.0-1.0); Eosinophils Absolute Auto 0.13 K/mm3 (0.02-0.50); Eosinophils Percent Auto 1.2 % (1.0-6.0); Hematocrit 47.6 % (40.0-54.0); Hemoglobin 16.8 g/dL (14.0-18.0); Immature Granulocyte Absolute 0.05 K/mm3 (0.00-0.00); Immature Granulocyte Percent A 0.5 % (0.0-0.0); Lymphocytes Absolute Auto 1.81 K/mm3 (1.10-4.50); Lymphocytes Percent Auto 16.5 % (18.0-42.0); Mean Corpuscular HGB Conc 35.3 g/dL (32.0-36.0); Mean Corpuscular Hemoglobin 35.7 pg (27.0-31.0); Mean Corpuscular Volume 101.3 fL (78.0-102.0); Mean Platelet Volume 8.8 fl (8.7-11.0); Monocytes Absolute Auto 1.27 K/mm3 (0.10-0.90); Monocytes Percent Auto 11.6 % (2.0-11.0); Neutrophils Absolute Auto 7.6 K/mm3 (1.7-7.2); Neutrophils Percent Auto 69.3 % (50.0-70.0); Platelet Count Result 218 K/mm3 (150-420); Red Cell Distribution Width 13.6 % (11.6-14.4)
[2020-08-26 09:15] LABS: INR 1.4; Prothrombin Time 14.3 Seconds (9.50-12.10)
== END 2020-08-26 08:48 | disposition home or self-care (01) ==
LOC: CHSIMG 08:52
PROVIDERS: PCP Nurse Practitioner Family; Visit Provider Nurse Practitioner Family
DX: K70.31 Alcoholic cirrhosis of liver with ascites (principal); K76.6 Portal hypertension
CPT/HCPCS: 36415; 49083; 85025; 85610; 85730

== ENCOUNTER 2020-09-20 07:43 | Outpatient (CLI) | payer OTHER, SELFPAY ==
--- NOTE | ~2020-09-20 | US_ITS ---
EXAMINATION: US paracentesis abd w/image DATE: 09/20/2020 10:57 CDT INDICATION: Ascites TECHNIQUE: Survey imaging of the abdomen was performed. The procedure for ultrasound-guided thoracen tesis and its risk and benefits were discussed with the patient. Risks included but were not limited to pain, bleeding, pneumothorax and infection. The patient verbalized understanding and provided wri tten consent. A time-out was performed to document the patient's name, date of , and site of procedure. The [facility] abdomen was prepped and draped in usual sterile fashion. 1% lidocaine was used for local anesthe geovany. Utilizing ultrasound guidance, a 5 serbian cather was advanced into pleural fluid. Aspiration w as performed. The patient tolerated procedure without immediate complication. Sterile bandages were applied over t he aspiration site(s).] FINDINGS: 5 L of ruma color fluid obtained without complication. Patient tolerated procedure well. IMPRESSION: 1. Successful ultrasound-guided paracentesis. 5 L of ruma color fluid obtained without complication . Reviewed, dictated and finalized at location B. IMPRESSION: 1. Successful ultrasound-guided paracentesis. 5 L of ruma color fluid obtaine d without complication.
[2020-09-20 07:56] LABS: Hematocrit 45.8 % (40.0-54.0); Hemoglobin 15.7 g/dL (14.0-18.0); Mean Corpuscular HGB Conc 34.3 g/dL (32.0-36.0); Mean Corpuscular Hemoglobin 34.4 pg (27.0-31.0); Mean Corpuscular Volume 100.2 fL (78.0-102.0); Mean Platelet Volume 7.9 fl (8.7-11.0); Platelet Count Result 189 K/mm3 (150-420); Red Blood Count 4.57 M/mm3 (4.70-6.10); White Blood Count 11.6 K/mm3 (4.8-10.8)
[2020-09-20 08:11] LABS: INR 1.4; Partial Thromboplastin Time 29.1 SEC (23.90-30.70); Prothrombin Time 14.6 Seconds (9.50-12.10)
== END 2020-09-20 07:44 | disposition home or self-care (01) ==
PROVIDERS: PCP Family Medicine; Visit Provider Nurse Practitioner Family
DX: R18.8 Other ascites (principal)
CPT/HCPCS: 36415; 49083; 85027; 85610; 85730

== ENCOUNTER 2020-10-05 12:42 | Outpatient (CLI) | payer OTHER, SELFPAY ==
--- NOTE | ~2020-10-05 | US_ITS ---
EXAMINATION: US paracentesis abd w/image DATE: 10/05/2020 14:19 INDICATION: Ascites. TECHNIQUE: The procedure and its risks and benefits were discussed with the patient. Potential risks discussed included bleeding and infection. The skin was prepared and draped in sterile fashion. 1% li docaine was used for local anesthesia. Under ultrasound guidance, a 5 Fr catheter with trochar was ad vanced into the ascites in the left lower quadrant. Fluid was aspirated into vacuum bottles. The cath eter was removed, and a dressing was applied. There were no immediate complications. FINDINGS: Ultrasound images demonstrate ascites and the catheter within the fluid. IMPRESSION: 1. Successful ultrasound-guided paracentesis yielding 5000 mL of yellow fluid. Reviewed, dictated and finalized at location A.
[2020-10-05 13:12] LABS: Basophils Absolute Auto 0.12 K/mm3 (0.00-0.10); Basophils Percent Auto 0.8 % (0.0-1.0); Eosinophils Absolute Auto 0.09 K/mm3 (0.02-0.50); Eosinophils Percent Auto 0.6 % (1.0-6.0); Hematocrit 42.3 % (40.0-54.0); Hemoglobin 15.3 g/dL (14.0-18.0); Immature Granulocyte Absolute 0.12 K/mm3 (0.00-0.00); Immature Granulocyte Percent A 0.8 % (0.0-0.0); Lymphocytes Absolute Auto 2.27 K/mm3 (1.10-4.50); Lymphocytes Percent Auto 15.1 % (18.0-42.0); Mean Corpuscular HGB Conc 36.2 g/dL (32.0-36.0); Mean Corpuscular Hemoglobin 34.6 pg (27.0-31.0); Mean Corpuscular Volume 95.7 fL (78.0-102.0); Mean Platelet Volume 8.4 fl (8.7-11.0); Monocytes Absolute Auto 1.55 K/mm3 (0.10-0.90); Monocytes Percent Auto 10.3 % (2.0-11.0); Neutrophils Absolute Auto 10.9 K/mm3 (1.7-7.2); Neutrophils Percent Auto 72.4 % (50.0-70.0); Platelet Count Result 243 K/mm3 (150-420); Red Blood Count 4.42 M/mm3 (4.70-6.10); Red Cell Distribution Width 14.2 % (11.6-14.4); White Blood Count 15.1 K/mm3 (4.8-10.8)
[2020-10-05 13:26] LABS: INR 1.4; Partial Thromboplastin Time 29.8 SEC (23.90-30.70); Prothrombin Time 14.6 Seconds (9.50-12.10)
== END 2020-10-05 12:43 | disposition home or self-care (01) ==
LOC: CHSIMG 12:44
PROVIDERS: PCP Nurse Practitioner Family; Visit Provider Nurse Practitioner Family
DX: R18.8 Other ascites (principal)
CPT/HCPCS: 36415; 49083; 85025; 85610; 85730

== ENCOUNTER 2020-10-07 08:30 | Outpatient (CLI) | payer OTHER, SELFPAY ==
--- NOTE | ~2020-10-07 | US_ITS ---
EXAMINATION: US paracentesis abd w/image EXAM DATE: 10/07/2020 09:11 INDICATION: R18.8 - Other ascites. TECHNIQUE: The procedure and its risks and benefits were discussed with the patient. Alternatives als o discussed. Potential risks discussed included bleeding and infection. The skin was prepped and drap ed in sterile fashion. 3 of 1% lidocaine was used for local anesthesia. Under ultrasound guidance, a 5 Fr catheter with trochar was advanced into the ascites in the left lower quadrant. Fluid was aspira mejia into vacuum bottles. A total of 5 L straw colored fluid was taken in total. The catheter was rem davin, and a dressing was applied. There were no immediate complications. FINDINGS: Ultrasound images demonstrate ascites. IMPRESSION: Successful paracentesis, 5 L of ascites removed. Reviewed, dictated and finalized at location B.
== END 2020-10-07 08:31 | disposition home or self-care (01) ==
LOC: CHSIMG 08:31
PROVIDERS: PCP Nurse Practitioner Family; Visit Provider Nurse Practitioner Family
DX: R18.8 Other ascites (principal)
CPT/HCPCS: 49083

== ENCOUNTER 2020-10-28 07:46 | Outpatient (CLI) | payer OTHER, SELFPAY ==
--- NOTE | ~2020-10-28 | US_ITS ---
EXAMINATION: US paracentesis abd w/image EXAM DATE: 10/28/2020 09:38 INDICATION: Ascites. TECHNIQUE: The procedure and its risks and benefits were discussed with the patient. Alternatives als o discussed. Potential risks discussed included bleeding and infection. The skin was prepped and drap ed in sterile fashion. 4 cc of 1% lidocaine was used for local anesthesia. Under ultrasound guidance, a 5 Fr catheter with trochar was advanced into the ascites in the left lower quadrant. Fluid was asp irated into vacuum bottles. A total of 5 straw colored fluid was taken in total. While fluid was drai juwan I offered to answer any questions regarding COVID vaccinations. The catheter was removed, and a dressing was applied. There were no immediate complications. FINDINGS: Ultrasound images demonstrate ascites. IMPRESSION: Status post therapeutic paracentesis. Reviewed, dictated and finalized at location B.
[2020-10-28 07:56] LABS: Basophils Absolute Auto 0.11 K/mm3 (0.00-0.10); Basophils Percent Auto 0.9 % (0.0-1.0); Eosinophils Absolute Auto 0.08 K/mm3 (0.02-0.50); Eosinophils Percent Auto 0.7 % (1.0-6.0); Hematocrit 42.5 % (40.0-54.0); Hemoglobin 14.8 g/dL (14.0-18.0); Immature Granulocyte Percent A 0.8 % (0.0-0.0); Lymphocytes Absolute Auto 1.48 K/mm3 (1.10-4.50); Lymphocytes Percent Auto 12.4 % (18.0-42.0); Mean Corpuscular HGB Conc 34.8 g/dL (32.0-36.0); Mean Corpuscular Hemoglobin 34.5 pg (27.0-31.0); Mean Corpuscular Volume 99.1 fL (78.0-102.0); Mean Platelet Volume 7.8 fl (8.7-11.0); Monocytes Absolute Auto 1.16 K/mm3 (0.10-0.90); Monocytes Percent Auto 9.7 % (2.0-11.0); Neutrophils Percent Auto 75.5 % (50.0-70.0); Platelet Count Result 198 K/mm3 (150-420); Red Blood Count 4.29 M/mm3 (4.70-6.10); Red Cell Distribution Width 14.6 % (11.6-14.4)
[2020-10-28 08:13] LABS: INR 1.2; Partial Thromboplastin Time 27.7 SEC (23.90-30.70); Prothrombin Time 12.9 Seconds (9.50-12.10)
== END 2020-10-28 07:47 | disposition home or self-care (01) ==
LOC: CHSIMG 07:48
PROVIDERS: PCP Nurse Practitioner Family; Visit Provider Nurse Practitioner Family
DX: R18.8 Other ascites (principal)
CPT/HCPCS: 36415; 49083; 85025; 85610; 85730

== ENCOUNTER 2020-11-01 07:51 | Outpatient (CLI) | payer OTHER, SELFPAY ==
--- NOTE | ~2020-11-01 | US_ITS ---
US paracentesis abd w/image DATE: 11/01/2020 09:35 INDICATION: Ascites TECHNIQUE: Real-time imaging of the abdomen was performed, localizing accessible pockets of amniotic fluid along the left lower quadrant and right lower quadrant of the abdomen. An initial attempt was made to perform the paracentesis at the right lower quadrant following sterile preparation of the skin, placement of sterile drape and infiltration of the skin and subcutaneous ti ssues with 1% lidocaine local anesthetic. However, the patient complained of severe discomfort at thi s location. The skin over the left lower quadrant was then prepared with sterile Betadine solution. 1% lidocaine local anesthetic was administered to the skin and underlying subcutaneous tissues. The single stick n eedle/paracentesis catheter was introduced uneventfully into the peritoneal cavity, yielding clear ye llowish ascites. 5 L of clear yellow ascites was drained into vacuum bottles without complication. IMPRESSION: Ultrasound-guided paracentesis procedure yielding 5 L of clear yellowish ascites Reviewed, dictated and finalized at Location A. Reviewed, dictated and finalized at location B. IMPRESSION: Ultrasound-guided paracentesis procedure yielding 5 L of clear yell owish ascites
[2020-11-01 08:01] LABS: Basophils Absolute Auto 0.08 K/mm3 (0.00-0.10); Basophils Percent Auto 0.6 % (0.0-1.0); Eosinophils Absolute Auto 0.07 K/mm3 (0.02-0.50); Eosinophils Percent Auto 0.5 % (1.0-6.0); Hematocrit 45.7 % (40.0-54.0); Hemoglobin 15.7 g/dL (14.0-18.0); Immature Granulocyte Absolute 0.14 K/mm3 (0.00-0.00); Immature Granulocyte Percent A 1.1 % (0.0-0.0); Lymphocytes Absolute Auto 1.42 K/mm3 (1.10-4.50); Lymphocytes Percent Auto 10.7 % (18.0-42.0); Mean Corpuscular HGB Conc 34.4 g/dL (32.0-36.0); Mean Corpuscular Hemoglobin 34.1 pg (27.0-31.0); Mean Corpuscular Volume 99.1 fL (78.0-102.0); Mean Platelet Volume 7.8 fl (8.7-11.0); Monocytes Absolute Auto 1.11 K/mm3 (0.10-0.90); Monocytes Percent Auto 8.4 % (2.0-11.0); Neutrophils Absolute Auto 10.4 K/mm3 (1.7-7.2); Neutrophils Percent Auto 78.7 % (50.0-70.0); Platelet Count Result 212 K/mm3 (150-420); Red Blood Count 4.61 M/mm3 (4.70-6.10); Red Cell Distribution Width 14.6 % (11.6-14.4); White Blood Count 13.2 K/mm3 (4.8-10.8)
[2020-11-01 08:15] LABS: INR 1.2; Partial Thromboplastin Time 28.8 SEC (23.90-30.70)
== END 2020-11-01 07:52 | disposition home or self-care (01) ==
LOC: CHSIMG 07:53
PROVIDERS: PCP Nurse Practitioner Family; Visit Provider Nurse Practitioner Family
DX: R18.8 Other ascites (principal)
CPT/HCPCS: 36415; 49083; 85025; 85610; 85730

== ENCOUNTER 2020-11-22 07:55 | Outpatient (CLI) | payer OTHER, SELFPAY ==
--- NOTE | ~2020-11-22 | US_ITS ---
EXAMINATION: US paracentesis abd w/image DATE: 11/22/2020 09:21 INDICATION: Ascites. TECHNIQUE: The procedure and its risks and benefits were discussed with the patient. Potential risks discussed included bleeding and infection. The skin was prepped and draped in sterile fashion. 1% lid ocaine was used for local anesthesia. Under ultrasound guidance, a 5 Fr catheter with trochar was adv anced into the ascites in the left lower quadrant. Fluid was aspirated into vacuum bottles. The corona ter was removed, and a dressing was applied. There were no immediate complications. FINDINGS: Ultrasound images demonstrate ascites and the catheter within the fluid. IMPRESSION: 1. Successful ultrasound-guided paracentesis yielding 5000 mL of yellow fluid. Reviewed, dictated and finalized at location B.
[2020-11-22 08:07] LABS: Basophils Absolute Auto 0.09 K/mm3 (0.00-0.10); Basophils Percent Auto 0.6 % (0.0-1.0); Eosinophils Absolute Auto 0.03 K/mm3 (0.02-0.50); Eosinophils Percent Auto 0.2 % (1.0-6.0); Hematocrit 41.8 % (40.0-54.0); Immature Granulocyte Absolute 0.17 K/mm3 (0.00-0.00); Immature Granulocyte Percent A 1.1 % (0.0-0.0); Lymphocytes Absolute Auto 1.64 K/mm3 (1.10-4.50); Lymphocytes Percent Auto 10.2 % (18.0-42.0); Mean Corpuscular HGB Conc 35.9 g/dL (32.0-36.0); Mean Corpuscular Hemoglobin 34.7 pg (27.0-31.0); Mean Corpuscular Volume 96.8 fL (78.0-102.0); Mean Platelet Volume 7.9 fl (8.7-11.0); Monocytes Absolute Auto 1.64 K/mm3 (0.10-0.90); Monocytes Percent Auto 10.2 % (2.0-11.0); Neutrophils Absolute Auto 12.6 K/mm3 (1.7-7.2); Neutrophils Percent Auto 77.7 % (50.0-70.0); Platelet Count Result 258 K/mm3 (150-420); Red Blood Count 4.32 M/mm3 (4.70-6.10); Red Cell Distribution Width 13.2 % (11.6-14.4); White Blood Count 16.1 K/mm3 (4.8-10.8)
[2020-11-22 08:21] LABS: INR 1.3; Prothrombin Time 13.3 Seconds (9.50-12.10)
== END 2020-11-22 07:56 | disposition home or self-care (01) ==
LOC: CHSIMG 07:57
PROVIDERS: PCP Nurse Practitioner Family; Visit Provider Nurse Practitioner Family
DX: R18.8 Other ascites (principal)
CPT/HCPCS: 36415; 49083; 85025; 85610; 85730

== ENCOUNTER 2020-11-25 07:58 | Outpatient (CLI) | payer OTHER, SELFPAY ==
--- NOTE | ~2020-11-25 | US_ITS ---
EXAMINATION: US paracentesis abd w/image DATE: 11/25/2020 09:13 INDICATION: Ascites. TECHNIQUE: The procedure and its risks and benefits were discussed with the patient. Potential risks discussed included bleeding and infection. The skin was prepped and draped in sterile fashion. 1% lid ocaine was used for local anesthesia. Under ultrasound guidance, a 5 Fr catheter with trochar was adv anced into the ascites in the left lower quadrant. Fluid was aspirated into vacuum bottles. The corona ter was removed, and a dressing was applied. There were no immediate complications. FINDINGS: Ultrasound images demonstrate ascites and the catheter within the fluid. IMPRESSION: 1. Successful ultrasound-guided paracentesis yielding 5000 mL of yellowish fluid. Reviewed, dictated and finalized at location B. IMPRESSION: 1. Successful ultrasound-guided paracentesis yielding 5000 mL of yellowish flu id.
== END 2020-11-25 07:59 | disposition home or self-care (01) ==
LOC: CHSIMG 07:58
PROVIDERS: PCP Nurse Practitioner Family; Visit Provider Nurse Practitioner Family
DX: R18.8 Other ascites (principal)
CPT/HCPCS: 49083

== ENCOUNTER 2020-12-02 07:34 | Outpatient (CLI) | payer OTHER, SELFPAY ==
--- NOTE | ~2020-12-02 | US_ITS ---
EXAMINATION: US paracentesis abd w/image EXAM DATE: 12/02/2020 08:29 INDICATION: R18.8 - Other ascites. TECHNIQUE: The procedure and its risks and benefits were discussed with the patient. Alternatives als o discussed. Potential risks discussed included bleeding and infection. The skin was prepped and drap ed in sterile fashion. 3 mL of 1% lidocaine was used for local anesthesia. Under ultrasound guidance, a 5 Fr catheter with trochar was advanced into the ascites in the left lower quadrant. Fluid was asp irated into vacuum bottles. A total of 5 L straw colored fluid was taken in total. The catheter was removed, and a dressing was applied. There were no immediate complications. FINDINGS: Ultrasound images demonstrate ascites. IMPRESSION: Status post therapeutic paracentesis, 5 L removed. Reviewed, dictated and finalized at location B.
== END 2020-12-02 07:35 | disposition home or self-care (01) ==
LOC: CHSIMG 07:35
PROVIDERS: PCP Nurse Practitioner Family; Visit Provider Nurse Practitioner Family
DX: R18.8 Other ascites (principal)
CPT/HCPCS: 49083

== ENCOUNTER 2020-12-16 08:10 | Outpatient (CLI) | payer OTHER, SELFPAY ==
--- NOTE | ~2020-12-16 | US_ITS ---
EXAMINATION: US paracentesis abd w/image EXAM DATE: 12/16/2020 09:26 INDICATION: R18.8 - Other ascites . TECHNIQUE: The procedure and its risks and benefits were discussed with the patient. Alternatives als o discussed. Potential risks discussed included bleeding and infection. The skin was prepped and drap ed in sterile fashion. 4 mL of of 1% lidocaine was used for local anesthesia. Under ultrasound guidan ce, a 5 Fr catheter with trochar was advanced into the ascites in the left lower quadrant. Fluid was aspirated into vacuum bottles. A total of 5 L straw colored fluid was taken in total. The catheter w as removed, and a dressing was applied. There were no immediate complications. At the end of the procedure I offered to answer any questions regarding COVID 19 vaccinations. FINDINGS: Ultrasound images demonstrate ascites. IMPRESSION: Paracentesis yielding 5 L fluid. Reviewed, dictated and finalized at location G.
[2020-12-16 08:21] LABS: Hematocrit 40.8 % (40.0-54.0); Hemoglobin 14.7 g/dL (14.0-18.0); Mean Corpuscular Hemoglobin 34.8 pg (27.0-31.0); Mean Corpuscular Volume 96.5 fL (78.0-102.0); Mean Platelet Volume 7.9 fl (8.7-11.0); Platelet Count Result 247 K/mm3 (150-420); Red Blood Count 4.23 M/mm3 (4.70-6.10); Red Cell Distribution Width 12.7 % (11.6-14.4); White Blood Count 13.5 K/mm3 (4.8-10.8)
[2020-12-16 08:35] LABS: INR 1.2; Partial Thromboplastin Time 29.5 SEC (23.90-30.70); Prothrombin Time 13.1 Seconds (9.50-12.10)
== END 2020-12-16 08:11 | disposition home or self-care (01) ==
LOC: CHSIMG 08:11
PROVIDERS: PCP Nurse Practitioner Family; Visit Provider Family Medicine
DX: R18.8 Other ascites (principal)
CPT/HCPCS: 36415; 49083; 85027; 85610; 85730

== ENCOUNTER 2020-12-23 07:37 | Outpatient (CLI) | payer OTHER, SELFPAY ==
--- NOTE | ~2020-12-23 | US_ITS ---
EXAMINATION: US paracentesis abd w/image EXAM DATE: 12/23/2020 08:45 INDICATION: R18.8 - Other ascites . TECHNIQUE: The procedure and its risks and benefits were discussed with the patient. Alternatives als o discussed. Potential risks discussed included bleeding and infection. The skin was prepped and drap ed in sterile fashion. 5 mL of 1% lidocaine was used for local anesthesia. Under ultrasound guidance, a 5 Fr catheter with trochar was advanced into the ascites in the left lower quadrant. Fluid was asp irated into vacuum bottles. A total of 5 L straw colored fluid was taken in total. The catheter was removed, and a dressing was applied. There were no immediate complications. FINDINGS: Ultrasound images demonstrate ascites. IMPRESSION: Status post uneventful therapeutic paracentesis, removal of 5 L. Reviewed, dictated and finalized at location B.
== END 2020-12-23 07:38 | disposition home or self-care (01) ==
LOC: CHSIMG 07:38
PROVIDERS: PCP Nurse Practitioner Family; Visit Provider Nurse Practitioner Family
DX: R18.8 Other ascites (principal)
CPT/HCPCS: 49083

== ENCOUNTER 2020-12-27 08:12 | Outpatient (CLI) | payer OTHER, SELFPAY ==
--- NOTE | ~2020-12-27 | US_ITS ---
US paracentesis abd w/image DATE: 12/27/2020 09:21 INDICATION: Ascites. Cirrhosis. TECHNIQUE: The purpose of the procedure, technique and potential complications of the procedure have been discussed with the patient recently, the patient having no further questions or concerns. An appropriate site for percutaneous access was identified at the left lower quadrant. The skin was prepared with sterile solution, a sterile drape applied. 1% Lidocaine local anesthetic was administe red to the skin and underlying subcutaneous tissues. A single stick percutaneous needle/catheter was introduced into the peritoneal cavity, yielding clear yellowish ascites. 5 liters of clear yellow ascites was drained into vacuum bottles uneventfully, without patient compla int or complication. IMPRESSION: Uneventful percutaneous sonographically guided paracentesis procedure yielding 5 liters c lear yellow ascites Reviewed, dictated and finalized at Location A. Reviewed, dictated and finalized at location B. IMPRESSION: Uneventful percutaneous sonographically guided paracentesis procedu re yielding 5 liters clear yellow ascites
== END 2020-12-27 08:13 | disposition home or self-care (01) ==
LOC: CHSIMG 08:13
PROVIDERS: PCP Nurse Practitioner Family; Visit Provider Nurse Practitioner Family
DX: R18.8 Other ascites (principal)
CPT/HCPCS: 49083

== ENCOUNTER 2020-12-30 07:30 | Outpatient (CLI) | payer OTHER, SELFPAY ==
--- NOTE | ~2020-12-30 | US_ITS ---
US paracentesis abd w/image DATE: 12/30/2020 08:33 INDICATION: Ascites TECHNIQUE: The purpose of the procedure, technique and potential complications known to this patient, having presented frequently recently for paracentesis procedure. The patient gave consent. Ultrasound imaging was performed to identify a site for percutaneous access of the left lower quadran t of the abdomen. The skin was prepared with sterile Betadine solution. Sterile drape was applied. 1% lidocaine local anesthetic was administered to the skin and underlying subcutaneous tissues. A single stick needle/catheter was introduced into the peritoneal cavity uneventfully, yielding clear yellow ascites at the hub of the needle. The catheter was advanced and the needle withdrawn. 5 L of clear yellowish ascites was evacuated into 5 successive vacuum bottles. IMPRESSION: Uneventful apparently uncomplicated ultrasound-guided paracentesis yielding 5 L of clear yellowish ascites Reviewed, dictated and finalized at Location A. Reviewed, dictated and finalized at location B.
== END 2020-12-30 07:31 | disposition home or self-care (01) ==
LOC: CHSIMG 07:31
PROVIDERS: PCP Nurse Practitioner Family; Visit Provider Nurse Practitioner Family
DX: R18.8 Other ascites (principal)
CPT/HCPCS: 49083

== ENCOUNTER 2021-01-03 07:39 | Outpatient (CLI) | payer OTHER, SELFPAY ==
--- NOTE | ~2021-01-03 | US_ITS ---
EXAMINATION: US paracentesis abd w/image DATE: 01/03/2021 08:33 INDICATION: Ascites. TECHNIQUE: The procedure and its risks and benefits were discussed with the patient. Potential risks discussed included bleeding and infection. The skin was prepped and draped in sterile fashion. 1% lid ocaine was used for local anesthesia. Under ultrasound guidance, a 5 Fr catheter with trochar was adv anced into the ascites in the left lower quadrant. Fluid was aspirated into vacuum bottles. The corona ter was removed, and a dressing was applied. There were no immediate complications. FINDINGS: Ultrasound images demonstrate ascites and the catheter within the fluid. IMPRESSION: 1. Successful ultrasound-guided paracentesis yielding 5000 mL of yellow fluid. Reviewed, dictated and finalized at location B.
== END 2021-01-03 07:40 | disposition home or self-care (01) ==
PROVIDERS: PCP Nurse Practitioner Family; Visit Provider Nurse Practitioner Family
DX: R18.8 Other ascites (principal)
CPT/HCPCS: 49083

== ENCOUNTER 2021-01-06 08:58 | Outpatient (CLI) | payer OTHER, SELFPAY ==
--- NOTE | ~2021-01-06 | US_ITS ---
EXAMINATION: US paracentesis abd w/image DATE: 01/06/2021 09:39 INDICATION: Ascites. TECHNIQUE: The procedure and its risks and benefits were discussed with the patient. Potential risks discussed included bleeding and infection. The skin was prepped and draped in sterile fashion. 1% lid ocaine was used for local anesthesia. Under ultrasound guidance, a 5 Fr catheter with trochar was adv anced into the ascites in the left lower quadrant. Fluid was aspirated into vacuum bottles. The croona ter was removed, and a dressing was applied. There were no immediate complications. FINDINGS: Ultrasound images demonstrate ascites and the catheter within the fluid. IMPRESSION: 1. Successful ultrasound-guided paracentesis yielding 3750 mL of yellowish fluid. Reviewed, dictated and finalized at location A. IMPRESSION: 1. Successful ultrasound-guided paracentesis yielding 3750 mL of yellowish flu id.
== END 2021-01-06 08:59 | disposition home or self-care (01) ==
LOC: CHSIMG 08:59
PROVIDERS: PCP Nurse Practitioner Family; Visit Provider Nurse Practitioner Family
DX: R18.8 Other ascites (principal)
CPT/HCPCS: 49083

== ENCOUNTER 2021-02-10 09:11 | Outpatient (CLI) | payer OTHER, SELFPAY ==
--- NOTE | ~2021-02-10 | US_ITS ---
EXAMINATION: US paracentesis abd w/image DATE: 02/10/2021 10:49 INDICATION: Ascites TECHNIQUE: The procedure and its risks and benefits were discussed with the patient. Potential risks discussed included bleeding and infection. The skin was prepared and draped in sterile fashion. 1% li docaine was used for local anesthesia. Under ultrasound guidance, a 5 Fr catheter with trochar was ad vanced into the ascites in the left lower quadrant. Fluid was aspirated into vacuum bottles. The cath eter was removed, and a dressing was applied. There were no immediate complications. FINDINGS: Ultrasound images demonstrate ascites and the catheter within the fluid. IMPRESSION: 1. Successful ultrasound-guided paracentesis yielding 5000 mL of clear yellow fluid. Reviewed, dictated and finalized at location B. H WEAVER
[2021-02-10 09:26] LABS: Basophils Percent Auto 0.8 % (0.0-1.0); Eosinophils Absolute Auto 0.13 K/mm3 (0.02-0.50); Hematocrit 36.8 % (40.0-54.0); Hemoglobin 13.2 g/dL (14.0-18.0); Immature Granulocyte Absolute 0.21 K/mm3 (0.00-0.00); Immature Granulocyte Percent A 1.6 % (0.0-0.0); Lymphocytes Absolute Auto 1.71 K/mm3 (1.10-4.50); Lymphocytes Percent Auto 13.3 % (18.0-42.0); Mean Corpuscular HGB Conc 35.9 g/dL (32.0-36.0); Mean Corpuscular Hemoglobin 35.7 pg (27.0-31.0); Mean Corpuscular Volume 99.5 fL (78.0-102.0); Mean Platelet Volume 8.3 fl (8.7-11.0); Monocytes Absolute Auto 1.13 K/mm3 (0.10-0.90); Monocytes Percent Auto 8.8 % (2.0-11.0); Neutrophils Absolute Auto 9.6 K/mm3 (1.7-7.2); Neutrophils Percent Auto 74.5 % (50.0-70.0); Platelet Count Result 167 K/mm3 (150-420); Red Cell Distribution Width 14.8 % (11.6-14.4); White Blood Count 12.9 K/mm3 (4.8-10.8)
[2021-02-10 09:49] LABS: INR 1.3; Prothrombin Time 13.3 Seconds (9.50-12.10)
== END 2021-02-10 09:12 | disposition home or self-care (01) ==
LOC: CHSIMG 09:13
PROVIDERS: PCP Nurse Practitioner Family; Visit Provider Nurse Practitioner Family
DX: R18.8 Other ascites (principal)
CPT/HCPCS: 36415; 49083; 85025; 85610; 85730

== ENCOUNTER 2021-02-14 09:10 | Outpatient (CLI) | payer OTHER, SELFPAY ==
--- NOTE | ~2021-02-14 | US_ITS ---
EXAMINATION: US paracentesis abd w/image EXAM DATE: 02/14/2021 09:44 INDICATION: R18.8 - Other ascites. TECHNIQUE: The procedure and its risks and benefits were discussed with the patient, who is very fami liar with this discussion and the procedure. Alternatives also discussed. The skin was prepped and draped in sterile fashion. 4 mL of 1% lidocaine was used for local anesthesi a. Under ultrasound guidance, a 5 Fr catheter with trochar was advanced into the ascites in the left lower quadrant. Fluid was aspirated into vacuum bottles. A total of 5 L straw colored fluid was taken in total. The catheter was removed, and a dressing was applied. There were no immediate complicatio ns. FINDINGS: Ultrasound images demonstrate ascites. IMPRESSION: Status post paracentesis, removal of 5 L fluid. Reviewed, dictated and finalized at location B. SYSTEMS ENGINEER
== END 2021-02-14 09:11 | disposition home or self-care (01) ==
LOC: CHSIMG 09:11
PROVIDERS: PCP Nurse Practitioner Family; Visit Provider Nurse Practitioner Family
DX: R18.8 Other ascites (principal)
CPT/HCPCS: 49083

== ENCOUNTER 2021-03-03 08:29 | Outpatient (CLI) | payer OTHER, SELFPAY ==
--- NOTE | ~2021-03-03 | US_ITS ---
EXAMINATION: US paracentesis abd w/image EXAM DATE: 03/03/2021 09:13 INDICATION: R18.8 - Other ascites. TECHNIQUE: The procedure and its risks and benefits were discussed with the patient. Alternatives als o discussed. Potential risks discussed included bleeding and infection. The skin was prepped and drap ed in sterile fashion. 7 mL of 1% lidocaine was used for local anesthesia. Under ultrasound guidance, a 5 Fr catheter with trochar was advanced into the ascites in the left lower quadrant. Fluid was asp irated into vacuum bottles. A total of 5 L straw colored fluid was taken in total. The catheter was removed, and a dressing was applied. There were no immediate complications. FINDINGS: Ultrasound images demonstrate ascites. IMPRESSION: Status post paracentesis yielding 5 L. Reviewed, dictated and finalized at location B. GER OF PHARMACY
== END 2021-03-03 08:30 | disposition home or self-care (01) ==
LOC: CHSIMG 08:29
PROVIDERS: PCP Nurse Practitioner Family; Visit Provider Nurse Practitioner Family
DX: R18.8 Other ascites (principal)
CPT/HCPCS: 49083

== ENCOUNTER 2021-03-14 08:31 | Outpatient (CLI) | payer OTHER, SELFPAY ==
--- NOTE | ~2021-03-14 | US_ITS ---
EXAMINATION: US paracentesis abd w/image EXAM DATE: 03/14/2021 09:36 INDICATION: Ascites. Therapeutic paracentesis requested. TECHNIQUE: The procedure and its risks and benefits were discussed with the patient. Alternatives als o discussed. Potential risks discussed included bleeding and infection. The skin was prepped and drap ed in sterile fashion. 5 mL of 1% lidocaine was used for local anesthesia. Under ultrasound guidance, a 5 Fr catheter with trochar was advanced into the ascites in the left lower quadrant. Fluid was asp irated into vacuum bottles. A total of 5 L straw colored fluid was taken in total. The catheter was removed, and a dressing was applied. There were no immediate complications. FINDINGS: Ultrasound images demonstrate ascites. IMPRESSION: Paracentesis yielding 5 L fluid. Reviewed, dictated and finalized at location B. ON STENCILER
== END 2021-03-14 08:32 | disposition home or self-care (01) ==
LOC: CHSIMG 08:32
PROVIDERS: PCP Nurse Practitioner Family; Visit Provider Nurse Practitioner Family
DX: R18.8 Other ascites (principal)
CPT/HCPCS: 49083

== ENCOUNTER 2021-03-15 07:30 | Inpatient (IN) | payer OTHER, SELFPAY ==
[2021-03-15] VITALS (12 sets, daily range): BP systolic 81–121; BP diastolic 56–79; PULSE 100–120; RESP 16–18; TEMP 36.2–36.4; O2SAT 99–100; BMI 65.2; BMI 30.1
--- NOTE | ~2021-03-15 | US_ITS ---
EXAMINATION: US paracentesis abd w/image EXAM DATE: 03/17/2021 09:01 INDICATION: Ascites . Hyponatremia. TECHNIQUE: The procedure and its risks and benefits were discussed with the patient. Alternatives als o discussed. Potential risks discussed included bleeding and infection. The skin was prepped and drap ed in sterile fashion. 5 mL of 1% lidocaine was used for local anesthesia. Under ultrasound guidance, a 5 Fr catheter with trochar was advanced into the ascites in the left lower quadrant. Fluid was asp irated into vacuum bottles. A total of 5 L straw colored fluid was taken in total. The catheter was removed, and a dressing was applied. There were no immediate complications. We discussed possibility of considering COVID vaccination. FINDINGS: Ultrasound images demonstrate ascites. IMPRESSION: Status post 5 L ascites removal. Reviewed, dictated and finalized at location B. GATION PUMP INSTALLER
--- NOTE | 2021-03-15 08:30 | ECG_ITS ---
Measurements Intervals [place] Rate: 106 P: AR: 0 QRS: 33 QRSD: 84 T: 58 QT: 339 QTc: 451 Interpretive Statements SINUS TACHYCARDIA INCOMPLETE RIGHT BUNDLE BRANCH BLOCK DELAYED PRECORDIAL R/S TRANSITION BASELINE ARTIFACT- I, III, AVR, AVL, AVF, V2 ABNORMAL ECG Electronically Signed On 03-15-2021 9:17:41 CLINICAL DOCUMENTATION CONSULTANT by Aidan Lemus D.O.
[2021-03-15] MEDS: SODIUM CHLORIDE 0.9% IV 1,000 ML 999 ML IV CONT (08:39)
[2021-03-15 08:53] LABS: Hematocrit 26.6 % (40.0-54.0); Hemoglobin 9.3 g/dL (14.0-18.0); Mean Corpuscular Volume 103.1 fL (78.0-102.0); Mean Platelet Volume 8.5 fl (8.7-11.0); Platelet Count Result 152 K/mm3 (150-420); Red Blood Count 2.58 M/mm3 (4.70-6.10); Red Cell Distribution Width 16.2 % (11.6-14.4); White Blood Count 11.7 K/mm3 (4.8-10.8)
[2021-03-15 09:09] LABS: INR 1.2; Prothrombin Time 12.8 Seconds (9.50-12.10)
[2021-03-15 09:24] LABS: Alanine Aminotransferase 33 U/L (16-63); Albumin Level 2.2 g/dL (3.4-5.0); Alkaline Phosphatase 196 U/L (46-116); Ammonia 62 umol/L (11-32); Anion Gap 14 mmol/L (8-16); Aspartate Amino Transferase 67 U/L (15-37); Bilirubin,Total 2.2 mg/dL (0.00-1.00); Blood Urea Nitrogen 55 mg/dL (7-18); Calcium 7.9 mg/dL (8.5-10.1); Carbon Dioxide 18 mmol/L (21-32); Chloride 92 mmol/L (98-108); Estimated CRCL calculation 33 ml/min; Estimated Glomerular Filt Rate 26; Glucose 113 mg/dL (70-99); Magnesium 2.4 mg/dL (1.8-2.4); Osmolality Calculated 274 mOsm/kg (285-295); Potassium 4.2 mmol/L (3.5-5.1); Sodium 124 mmol/L (136-145); Total Protein 6.7 g/dL (6.4-8.2); Troponin I 11.4 ng/L (0.00-60.4)
--- NOTE | 2021-03-15 09:36 | ED.GENADULT ---
HPI - General Adult General Chief complaint: Recheck/Abnormal Lab/Rx Stated complaint: sent by yesterday Source: patient Mode of arrival: ambulatory Limitations: no limitations History of Present Illness HPI narrative: PT states that he was told to come over because his sodium was low. Pt states that yesterday was jhis birthday, and he didnt want to be here, so he decided to come back today. For last 3 weeks he has been feeling weak and dizzy. He has weekly ascites taps, and yesterday he had his tap. He has no fevers, no nausea, and feels fine otherwise. He does still drink and tells me he doesnt take any of his medicines anyway. Onset (ago): week(s) Radiation: non-radiation Relieving factors: none Exacerbating factors: none Associated symptoms: denies other symptoms and weakness Related Data Allergies Allergy/AdvReac Type Severity Reaction Status Date / Time bee venom protein (honey bee) Allergy Severe Swelling Verified 03/14/21 06:39 [bees] acetaminophen [From Percocet] AdvReac Itching Verified 03/14/21 06:39 oxycodone [From Percocet] AdvReac Itching Verified 03/14/21 06:39 Review of Systems Review of Systems: All systems reviewed & are unremarkable except as noted in HPI and below Constitutional: Constitutional: Denies chills, Reports fatigue, Denies fever(s) and Reports weakness Eyes: Eyes: Reports no additional eye complaints ENT: Reports system reviewed and no additional complaints, except as documented Cardiovascular: Cardiovascular: Reports no additional cardiovascular complaints Respiratory: Respiratory: Reports no additional respiratory complaints Gastrointestinal: Gastrointestinal: Reports no additional gastrointestinal complaints Comments: chronic ab sxs, but nothing new Musculoskeletal: Musculoskeletal: Reports no additional musculoskeletal complaints Integumentary/Breasts: Skin/Breast: Reports system reviewed and no additional complaints, except as docu Neurologic: Reports system reviewed and no additional complaints, except as documented Psychiatric: Psychiatric: Reports no additional psychiatric complaints Endocrine: Endocrine: Reports no additional endocrine complaints Hematologic/Lymphatic: Hematologic/Lymphatic: Reports no additional hematologic/lymphatic complaints Allergic/Immunologic: Allergic/Immunologic: Reports no additional allergic/immunologic complaints PMFSH Past Medical History Medical History Adenomatous colon polyp Alcohol abuse Alcoholic cirrhosis of liver Anal fissure August 2016 Colon cancer screening Depression Diastolic dysfunction Noted on echocardiogram from 2017 Elevated liver function tests Essential hypertension Fatty liver Hypertension Hypertrophic cardiomyopathy Noted on echocardiogram 2016 IBS (irritable bowel syndrome) Medial meniscus tear Nicotine dependence Tear of medial meniscus of right knee, current Tobacco dependence Surgical History Surgical History H/O knee surgery right H/O umbilical hernia repair History of colonoscopy with polypectomy August [address] Lunsford demonstrated internal hemorrhoids with stigmata of bleeding, 1 colon polyp, and acute anal fissure Family History Family History Father Hypertension Sibling Alcohol abuse 3 brothers Father Colon polyp Mother Colon polyp Social History Social History Social History: The patient has 3 children. He lives with a fiancee. He is a full code and states that his fiancee is a durable power corporate associate attorney for healthcare. The patient stated that he drinks at least 20 drinks a day whether it is beer makes drinks. He mixes them up during the day. He said he never feels drawn when he drinks. He does not go through any withdrawals he s
--- NOTE | 2021-03-15 09:57 | PC.NURSE ---
Floor and registration notified of admission.
[2021-03-15] MEDS: SODIUM CHLORIDE 0.9% IV 1,000 ML 150 ML IV CONT (10:43)
[2021-03-15] MEDS: methylPREDNISolone SOD SUCC 125 MG VIAL 80 MG IV PUSH (17:42)
[2021-03-15] MEDS: SODIUM CHLORIDE 0.9% IV 1,000 ML 125 ML IV CONT (17:42)
[2021-03-15] MEDS: BUDESONIDE/FORMOTEROL 80/4.5 MCG 6.9 GM INHALER (*SP) 2 PUFF INHALATION (17:43)
[2021-03-15] MEDS: chlordiazePOXIDE (*CRX) 25 MG CAPSULE PO ×2 (17:43→23:59)
--- NOTE | 2021-03-15 17:55 | PM.IMHP ---
H&P: HPI History of Present Illness Date/Time: 03/15/21 17:55 this is a 51-year-old male that presented to emergency department after a visit with his primary care physician for a generalized skin rash , at that time he was told he had low sodium. Patient has a past medical history of alcohol abuse, cirrhosis of the liver, depression, diastolic dysfunction, essential hypertension, fatty liver, IBS, and nicotine dependent. Patient's vital signs 97.2, 111, 16, 99% on room air, 117/67, WBCs 11.7, hemoglobin 9.3, hematocrit 36.6, platelets 152, sodium 124, potassium 4.2, BUN 55, creatinine 2.62, glucose 113, AST 67, ALT 33, total bilirubin 2.2, troponin 11.4, ammonia 62, EKG sinus tach with a heart rate of 106. Patient being admitted for electrolyte imbalance. Patient has no complaints at this time other than his skin rash. Chief Complaint: Hyponatremia Review of Systems Review of Systems: A 14 organ system Review of Systems was performed and pertinent positives included in the HPI, otherwise remaining ROS is negative. [facility] Past Medical History Medical History Adenomatous colon polyp Alcohol abuse Alcoholic cirrhosis of liver Anal fissure August 2016 Colon cancer screening Depression Diastolic dysfunction Noted on echocardiogram from 2017 Elevated liver function tests Essential hypertension Fatty liver Hypertension Hypertrophic cardiomyopathy Noted on echocardiogram 2016 IBS (irritable bowel syndrome) Medial meniscus tear Nicotine dependence Tear of medial meniscus of right knee, current Tobacco dependence Surgical History Surgical History H/O knee surgery right H/O umbilical hernia repair History of colonoscopy with polypectomy August [address] Lunsford demonstrated internal hemorrhoids with stigmata of bleeding, 1 colon polyp, and acute anal fissure Family History Family History Father Hypertension Sibling Alcohol abuse 3 brothers Father Colon polyp Mother Colon polyp Social History Social History Social History: The patient has 3 children. He lives with a fiancee. He is a full code and states that his fiancee is a durable power trade mark attorney for healthcare. The patient stated that he drinks at least 20 drinks a day whether it is beer makes drinks. He mixes them up during the day. He said he never feels drawn when he drinks. He does not go through any withdrawals he stated. Primary care provider: Zoë Swan [employer] Code status: Full code Smoking packs per day: 1 Smoking cigarettes per day: 20.0 Years smoked: 20 Smoking pack-years: 20.00 Smoking status: Current every day smoker Tobacco type: cigarettes Second hand tobacco smoke exposure: Yes Alcohol intake: current Drinks per week: 105 Alcohol use details: He has drank alcohol to excess for at least the last 10 years. He has lost multiple jobs due to alcoholism. 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 He is currently on leave from his job due to workman's comp over right knee injury. The patient has applied for disability. Gender identity (if verbalized by the patient): Male Sexual Orientation (if Verbalized by the Patient): Straight or Heterosexual Spiritual care concerns: No Agree to blood products: Yes Meds Home Medications and Allergies Home Medications Medication Instructions Recorded Confirmed Type multivitamin with minerals 1 tablet PO DAILY #100 tablet 07/27/20 03/15/21 Rx [Multiple Vitamin-Minerals] nicotine [Nicoderm CQ] 1 patch TRANSDERMAL QAM #28 ea 07/27/20 03/15/21 Rx folic acid 1 mg tablet 1 mg PO DAILY #100 tablet 08/26/20 03/15/21 Rx fu
[2021-03-15] MEDS: ALBUTEROL SULFATE (*SP) INHALER 2 PUFF INHALATION (21:35)
[2021-03-15] MEDS: traZODone HCL 50 MG TABLET PO (21:36)
[2021-03-15] MEDS: METOPROLOL TARTRATE 50 MG TAB 100 MG PO (21:36)
[2021-03-15] MEDS: LACTULOSE 20 GM/30 ML UDC PO (21:52)
[2021-03-16] VITALS (7 sets, daily range): BP systolic 98–109; BP diastolic 50–58; PULSE 72–90; RESP 16–18; TEMP 36.1–36.6; O2SAT 95–98
--- NOTE | 2021-03-16 00:32 | PC.NURSE ---
Dr. Kamara notified of pt having a reddish tint to his stool; no new orders at this time.
--- NOTE | 2021-03-16 01:00 | PC.NURSE ---
Pt has inc diarrhea stool on floor. Pt ambulated to BR had add'l diarrhea stool. Watery red liquid surrounding stool. Charge nurse notified.
--- NOTE | 2021-03-16 01:15 | PC.NURSE ---
t pulled out IV while in BR. Catheter intact. Pt cleansed.
--- NOTE | 2021-03-16 01:16 | PC.NURSE ---
New IV site started to the right forearm with a #22 gauge catheter. Pt tolerated procedure well.
[2021-03-16] MEDS: SODIUM CHLORIDE 0.9% IV 1,000 ML 125 ML IV CONT (01:29)
[2021-03-16 05:23] LABS: Hematocrit 24.9 % (40.0-54.0); Hemoglobin 8.6 g/dL (14.0-18.0); Mean Corpuscular HGB Conc 34.5 g/dL (32.0-36.0); Mean Corpuscular Hemoglobin 35.8 pg (27.0-31.0); Mean Corpuscular Volume 103.8 fL (78.0-102.0); Mean Platelet Volume 8.9 fl (8.7-11.0); Platelet Count Result 132 K/mm3 (150-420); Red Cell Distribution Width 15.9 % (11.6-14.4)
--- NOTE | 2021-03-16 05:26 | PC.NURSE ---
Pt has had 4 diarrhea stools so far this shift.
[2021-03-16 05:41] LABS: Anion Gap 14 mmol/L (8-16); Blood Urea Nitrogen 44 mg/dL (7-18); Calcium 7.5 mg/dL (8.5-10.1); Carbon Dioxide 15 mmol/L (21-32); Chloride 93 mmol/L (98-108); Estimated CRCL calculation 43 ml/min; Estimated Glomerular Filt Rate 35; Glucose 154 mg/dL (70-99); Magnesium 2.2 mg/dL (1.8-2.4); Osmolality Calculated 268 mOsm/kg (285-295); Potassium 4.5 mmol/L (3.5-5.1); Sodium 122 mmol/L (136-145)
[2021-03-16] MEDS: chlordiazePOXIDE (*CRX) 25 MG CAPSULE PO ×4 (06:28→23:57)
[2021-03-16] MEDS: BUDESONIDE/FORMOTEROL 80/4.5 MCG 6.9 GM INHALER (*SP) 2 PUFF INHALATION ×2 (06:28→18:26)
[2021-03-16] MEDS: ALBUTEROL SULFATE (*SP) INHALER 2 PUFF INHALATION ×4 (06:30→20:48)
[2021-03-16] MEDS: METOPROLOL TARTRATE 50 MG TAB 100 MG PO ×2 (08:25→20:40)
[2021-03-16] MEDS: PANTOPRAZOLE 40 MG TABLET PO (08:26)
[2021-03-16] MEDS: FOLIC ACID 1 MG TABLET PO (08:26)
[2021-03-16] MEDS: SPIRONOLACTONE 25 MG TABLET 50 MG PO (08:27)
[2021-03-16] MEDS: THERAPEUTIC MULTIVITAMINS/MINERALS TAB (*BKC) 1 TABLET PO (08:27)
[2021-03-16] MEDS: FUROSEMIDE 40 MG TABLET PO (08:28)
[2021-03-16] MEDS: methylPREDNISolone SOD SUCC 125 MG VIAL 80 MG IV PUSH (08:29)
[2021-03-16] MEDS: ENOXAPARIN 40 MG/0.4 ML SYRINGE SUB-Q (08:31)
[2021-03-16] MEDS: THIAMINE HCL 100 MG TABLET PO (08:32)
[2021-03-16] MEDS: SODIUM CHLORIDE 1 GM TABLET PO ×2 (09:33→16:40)
[2021-03-16 11:19] LABS: Ammonia 73 umol/L (11-32)
--- NOTE | 2021-03-16 13:17 | PC.NURSE ---
Patient told travel writer that he was uncomfortable with the ascites in his abdomen and thought he had an appointment to be drained tomorrow. Regional Director Of Finance phoned radiology and patient was not scheduled until next week, however they are able to get him in tomorrow at 0830. Patient is to be NPO after midnight and is not to have any blood thinners. Due to low sodium level, patient is now on fluid restriction.
--- NOTE | 2021-03-16 13:32 | P.PN_ITS ---
Progress Note: A&P Assessment and Plan (1) Acute hyponatremia: Code(s): E87.1 - Hypo-osmolality and hyponatremia Status: Acute Assessment and Plan: * Sodium 124>122 * Secondary to alcoholism * IV fluid discontinued patient placed on a fluid restriction * Repeat in the a.m. (2) Rash: Code(s): R21 - Rash and other nonspecific skin eruption Status: Acute Assessment and Plan: * Started prednisone via IV (3) Elevated liver function tests: Code(s): R79.89 - Other specified abnormal findings of blood chemistry Status: Acute Assessment and Plan: * Secondary to cirrhosis * AST 67 ALT 33 total bili 2.2 patient's liver function test near baseline (4) Ascites: Code(s): R18.8 - Other ascites Status: Acute Assessment and Plan: * Patient with weekly paracentesis last one yesterday, 5 L removed (5) Tachycardia: Code(s): R00.0 - Tachycardia, unspecified Status: Acute Assessment and Plan: * Continue metoprolol 50 mg every 12 hours * Continue telemetry * EKG sinus tachycardia with a heart rate of 106 * Will adjust medication as needed (6) Hypertension: Code(s): I10 - Essential (primary) hypertension Status: Acute Assessment and Plan: * Blood pressure 109/50 * Continue vital signs * Will adjust medication as needed (7) Alcohol abuse: Code(s): F10.10 - Alcohol abuse, uncomplicated Status: Acute Assessment and Plan: * Implemented alcohol withdrawal protocol * Educated on cessation * Patient currently consumes alcohol (8) Nicotine dependence: Code(s): F17.200 - Nicotine dependence, unspecified, uncomplicated Status: Acute Assessment and Plan: * Declined nicotine patch (9) Depression: Code(s): F32.9 - Major depressive disorder, single episode, unspecified Status: Chronic Assessment and Plan: * Not on any home medication (10) Bxeud-mb-[id number] kidney injury: Code(s): N17.9 - Acute kidney failure, unspecified; N18.9 - Chronic kidney disease, unspecified Status: Acute Assessment and Plan: * BUN 55 >44creatinine 2.62>2.02 baseline within normal limits * Continue IV fluid * Avoid nephrotoxic agent * Renal dose medication Subjective Date/time seen: 03/16/21 13:32 patient notes that he does have slight shortness of breath he does have his paracentesis scheduled for tomorrow. He did not sleep well overnight due to the environment. He has no other complaints at this time. The patient denies CP, palpitation, extremity numbness, lightheadedness, dizziness, constipation, diarrhea, chills, or fever. Review of Systems Review of Systems: A 14 organ system Review of Systems was performed and pertinent positives included in the HPI, otherwise remaining ROS is negative. Exam Narrative: GENERAL: This is a well-nourished, well-developed patient, in no apparent distress. HEAD: normocephalic, atraumatic. EYES: PERRL. Sclera clear/white. Vision is grossly intact. EARS: External ears normal, auditory canals clear and without drainage, TMs normal without perforation. Hearing grossly intact. NOSE: External nose normal with no obvious nasal discharge, nares without redness, no rhinorrhea. THROAT: Mucous membranes moist, posterior pharynx clear. NECK: Neck supple, non-tender without lymphadenopathy, masses or thyromegaly. CARDIOVASCULAR: Tachycardic and rhythm without murmurs, gallops, or rubs. RESPIRATORY: Clear to auscultation. Breath sounds equ
--- NOTE | 2021-03-16 13:32 | WPDPN ---
Progress Note: A&P Assessment and Plan (1) Acute hyponatremia: Code(s): E87.1 - Hypo-osmolality and hyponatremia Status: Acute Assessment and Plan: Sodium 124>122 Secondary to alcoholism IV fluid discontinued patient placed on a fluid restriction Repeat in the a.m. (2) Rash: Code(s): R21 - Rash and other nonspecific skin eruption Status: Acute Assessment and Plan: Started prednisone via IV (3) Elevated liver function tests: Code(s): R79.89 - Other specified abnormal findings of blood chemistry Status: Acute Assessment and Plan: Secondary to cirrhosis AST 67 ALT 33 total bili 2.2 patient's liver function test near baseline (4) Ascites: Code(s): R18.8 - Other ascites Status: Acute Assessment and Plan: Patient with weekly paracentesis last one yesterday, 5 L removed (5) Tachycardia: Code(s): R00.0 - Tachycardia, unspecified Status: Acute Assessment and Plan: Continue metoprolol 50 mg every 12 hours Continue telemetry EKG sinus tachycardia with a heart rate of 106 Will adjust medication as needed (6) Hypertension: Code(s): I10 - Essential (primary) hypertension Status: Acute Assessment and Plan: Blood pressure 109/50 Continue vital signs Will adjust medication as needed (7) Alcohol abuse: Code(s): F10.10 - Alcohol abuse, uncomplicated Status: Acute Assessment and Plan: Implemented alcohol withdrawal protocol Educated on cessation Patient currently consumes alcohol (8) Nicotine dependence: Code(s): F17.200 - Nicotine dependence, unspecified, uncomplicated Status: Acute Assessment and Plan: Declined nicotine patch (9) Depression: Code(s): F32.9 - Major depressive disorder, single episode, unspecified Status: Chronic Assessment and Plan: Not on any home medication (10) Zbghi-oy-wgbqvnm kidney injury: Code(s): N17.9 - Acute kidney failure, unspecified; N18.9 - Chronic kidney disease, unspecified Status: Acute Assessment and Plan: BUN 55 >44creatinine 2.62>2.02 baseline within normal limits Continue IV fluid Avoid nephrotoxic agent Renal dose medication Subjective Date/time seen: 03/16/21 13:32 patient notes that he does have slight shortness of breath he does have his paracentesis scheduled for tomorrow. He did not sleep well overnight due to the environment. He has no other complaints at this time. The patient denies CP, palpitation, extremity numbness, lightheadedness, dizziness, constipation, diarrhea, chills, or fever. Review of Systems Review of Systems: A 14 organ system Review of Systems was performed and pertinent positives included in the HPI, otherwise remaining ROS is negative. Exam Narrative: GENERAL: This is a well-nourished, well-developed patient, in no apparent distress. HEAD: normocephalic, atraumatic. EYES: PERRL. Sclera clear/white. Vision is grossly intact. EARS: External ears normal, auditory canals clear and without drainage, TMs normal without perforation. Hearing grossly intact. NOSE: External nose normal with no obvious nasal discharge, nares without redness, no rhinorrhea. THROAT: Mucous membranes moist, posterior pharynx clear. NECK: Neck supple, non-tender without lymphadenopathy, masses or thyromegaly. CARDIOVASCULAR: Tachycardic and rhythm without murmurs, gallops, or rubs. RESPIRATORY: Clear to auscultation. Breath sounds equal bilaterally. No wheezes, rales, or rhonchi. GASTROINTESTINAL: Abdomen distended and hard bowel sounds are active. hepato-splenomegaly, No guarding. SKIN: warm, intact generalized rash on his lower and upper extremities and abdominal area NEURO: awake, alert, and oriented to person, place and time. There were no obvious focal neurologic abnormalities. Steady gait EXTREMITIES: Normal range of motion. No edema. No calf tenderness. Negative Ho
[2021-03-16 14:12] LABS: SARS-CoV-2 Ag Negative (Negative)
[2021-03-16] MEDS: traZODone HCL 50 MG TABLET PO (20:48)
[2021-03-17] VITALS: BP 105/58; PULSE 90; RESP 20; TEMP 35.9; O2SAT 96
[2021-03-17 05:41] LABS: Hematocrit 25.4 % (40.0-54.0); Hemoglobin 8.8 g/dL (14.0-18.0); Mean Corpuscular HGB Conc 34.6 g/dL (32.0-36.0); Mean Corpuscular Hemoglobin 36.4 pg (27.0-31.0); Mean Platelet Volume 8.8 fl (8.7-11.0); Platelet Count Result 131 K/mm3 (150-420); Red Blood Count 2.42 M/mm3 (4.70-6.10); Red Cell Distribution Width 15.8 % (11.6-14.4); White Blood Count 15.1 K/mm3 (4.8-10.8)
[2021-03-17] MEDS: ALBUTEROL SULFATE (*SP) INHALER 2 PUFF INHALATION ×2 (06:10→10:50)
[2021-03-17] MEDS: BUDESONIDE/FORMOTEROL 80/4.5 MCG 6.9 GM INHALER (*SP) 2 PUFF INHALATION (06:10)
[2021-03-17] MEDS: chlordiazePOXIDE (*CRX) 25 MG CAPSULE PO (06:10)
[2021-03-17 06:12] LABS: Alanine Aminotransferase 33 U/L (16-63); Albumin Level 2.1 g/dL (3.4-5.0); Alkaline Phosphatase 171 U/L (46-116); Ammonia 53 umol/L (11-32); Anion Gap 12 mmol/L (8-16); Aspartate Amino Transferase 54 U/L (15-37); Blood Urea Nitrogen 40 mg/dL (7-18); Calcium 8.1 mg/dL (8.5-10.1); Carbon Dioxide 15 mmol/L (21-32); Chloride 95 mmol/L (98-108); Estimated CRCL calculation 47 ml/min; Estimated Glomerular Filt Rate 39; Glucose 119 mg/dL (70-99); Magnesium 2.3 mg/dL (1.8-2.4); Osmolality Calculated 264 mOsm/kg (285-295); Potassium 4.8 mmol/L (3.5-5.1); Sodium 122 mmol/L (136-145); Total Protein 6.5 g/dL (6.4-8.2)
[2021-03-17 08:00] VITALS: BP 115/70; PULSE 78; RESP 20; TEMP 36.3; O2SAT 100
[2021-03-17 08:04] VITALS: BP 115/70; PULSE 78; RESP 20; TEMP 36.3; O2SAT 100
[2021-03-17] MEDS: methylPREDNISolone SOD SUCC 125 MG VIAL 80 MG IV PUSH (08:59)
[2021-03-17] MEDS: PANTOPRAZOLE 40 MG TABLET PO (09:00)
[2021-03-17] MEDS: FUROSEMIDE 40 MG TABLET PO (09:00)
[2021-03-17] MEDS: THERAPEUTIC MULTIVITAMINS/MINERALS TAB (*BKC) 1 TABLET PO (09:00)
[2021-03-17 09:01] VITALS: PULSE 74
[2021-03-17] MEDS: THIAMINE HCL 100 MG TABLET PO (09:01)
[2021-03-17] MEDS: FOLIC ACID 1 MG TABLET PO (09:01)
[2021-03-17] MEDS: METOPROLOL TARTRATE 50 MG TAB 100 MG PO (09:01)
[2021-03-17] MEDS: SPIRONOLACTONE 25 MG TABLET 50 MG PO (09:01)
[2021-03-17] MEDS: SODIUM CHLORIDE 1 GM TABLET PO (09:01)
--- NOTE | 2021-03-17 09:25 | PC.NURSE ---
Patient returned from paracentesis. Resume regular diet and FR of 2000 ml /day
[2021-03-17 10:12] LABS: Hematocrit 25.8 % (40.0-54.0); Hemoglobin 8.9 g/dL (14.0-18.0); Mean Corpuscular HGB Conc 34.5 g/dL (32.0-36.0); Mean Corpuscular Hemoglobin 36.5 pg (27.0-31.0); Mean Corpuscular Volume 105.7 fL (78.0-102.0); Mean Platelet Volume 9.2 fl (8.7-11.0); Platelet Count Result 136 K/mm3 (150-420); Red Blood Count 2.44 M/mm3 (4.70-6.10); Red Cell Distribution Width 15.9 % (11.6-14.4)
[2021-03-17 10:22] LABS: Alanine Aminotransferase 34 U/L (16-63); Albumin Level 2.2 g/dL (3.4-5.0); Alkaline Phosphatase 183 U/L (46-116); Anion Gap 11 mmol/L (8-16); Aspartate Amino Transferase 59 U/L (15-37); Blood Urea Nitrogen 40 mg/dL (7-18); Calcium 8.2 mg/dL (8.5-10.1); Carbon Dioxide 19 mmol/L (21-32); Chloride 93 mmol/L (98-108); Estimated CRCL calculation 48 ml/min; Estimated Glomerular Filt Rate 40; Glucose 107 mg/dL (70-99); Osmolality Calculated 265 mOsm/kg (285-295); Potassium 4.5 mmol/L (3.5-5.1); Sodium 123 mmol/L (136-145); Total Protein 6.7 g/dL (6.4-8.2)
[2021-03-17 12:00] VITALS: PULSE 78
--- NOTE | 2021-03-17 12:30 | P.DS_ITS ---
DS: Admitting Diagnosis Discharge Date 03/17/2021 Admitting Diagnosis Hyponatremia DS: Discharge Diagnosis Discharge Diagnosis (1) Acute hyponatremia: Code(s): E87.1 - Hypo-osmolality and hyponatremia Status: Acute Assessment and Plan: * Sodium 124>122 status post paracentesis 123 * Secondary to alcoholism * IV fluid discontinued patient placed on a fluid restriction * Repeat in the a.m. * Instructed to limit fluid intake on discharge (2) Rash: Code(s): R21 - Rash and other nonspecific skin eruption Status: Acute Assessment and Plan: * Discharged with steroids and doxycycline (3) Elevated liver function tests: Code(s): R79.89 - Other specified abnormal findings of blood chemistry Status: Acute Assessment and Plan: * Secondary to cirrhosis * AST 67 ALT 33 total bili 2.2 patient's liver function test near baseline (4) Ascites: Code(s): R18.8 - Other ascites Status: Acute Assessment and Plan: * Patient with weekly paracentesis last one , 5 L removed (5) Tachycardia: Code(s): R00.0 - Tachycardia, unspecified Status: Acute Assessment and Plan: * Continue metoprolol 50 mg every 12 hours * Continue telemetry * EKG sinus rhythm * Will adjust medication as needed (6) Hypertension: Code(s): I10 - Essential (primary) hypertension Status: Acute Assessment and Plan: * Blood pressure soft * Continue vital signs * Will discontinue metoprolol patient will follow with primary care physician to see if antihypertension medication is needed. (7) Alcohol abuse: Code(s): F10.10 - Alcohol abuse, uncomplicated Status: Acute Assessment and Plan: * Implemented alcohol withdrawal protocol * Educated on cessation * Patient currently consumes alcohol (8) Nicotine dependence: Code(s): F17.200 - Nicotine dependence, unspecified, uncomplicated Status: Acute Assessment and Plan: * Declined nicotine patch (9) Depression: Code(s): F32.9 - Major depressive disorder, single episode, unspecified Status: Chronic Assessment and Plan: * Not on any home medication (10) Svlac-bp-ycwrcfi kidney injury: Code(s): N17.9 - Acute kidney failure, unspecified; N18.9 - Chronic kidney disease, unspecified Status: Acute Assessment and Plan: * BUN 55 >44creatinine 2.62>2.02 baseline within normal limits * Continue IV fluid * Avoid nephrotoxic agent * Renal dose medication (11) Cellulitis: Code(s): L03.90 - Cellulitis, unspecified Status: Acute Assessment and Plan: * Patient is with multiple edematous with erythema areas on chest we will start doxycycline DS: Summary Hospital Course Reason for hospitalization: Hyponatremia Hospital Course: this is a 51-year-old male that presented to emergency department after a visit with his primary care physician for a generalized skin rash , at that time he was told he had low sodium. Patient has a past medical history of alcohol abuse, cirrhosis of the liver, depression, diastolic dysfunction, essential hypertension, fatty liver, IBS, and nicotine dependent. This patient has a history of cirrhosis of the liver and he continues to drink. Educated patient on cessation. Patient's sodium level remain to be low educated patient on fluid restriction also informed him that he will go home with sodium tabs. Patient did note in the past that he has had a GI doctor to manage his care but decided to no longer visit his GI doc
--- NOTE | 2021-03-17 12:30 | PM.DS ---
DS: Admitting Diagnosis Discharge Date 03/17/2021 Admitting Diagnosis Hyponatremia DS: Discharge Diagnosis Discharge Diagnosis (1) Acute hyponatremia: Code(s): E87.1 - Hypo-osmolality and hyponatremia Status: Acute Assessment and Plan: Sodium 124>122 status post paracentesis 123 Secondary to alcoholism IV fluid discontinued patient placed on a fluid restriction Repeat in the a.m. Instructed to limit fluid intake on discharge (2) Rash: Code(s): R21 - Rash and other nonspecific skin eruption Status: Acute Assessment and Plan: Discharged with steroids and doxycycline (3) Elevated liver function tests: Code(s): R79.89 - Other specified abnormal findings of blood chemistry Status: Acute Assessment and Plan: Secondary to cirrhosis AST 67 ALT 33 total bili 2.2 patient's liver function test near baseline (4) Ascites: Code(s): R18.8 - Other ascites Status: Acute Assessment and Plan: Patient with weekly paracentesis last one , 5 L removed (5) Tachycardia: Code(s): R00.0 - Tachycardia, unspecified Status: Acute Assessment and Plan: Continue metoprolol 50 mg every 12 hours Continue telemetry EKG sinus rhythm Will adjust medication as needed (6) Hypertension: Code(s): I10 - Essential (primary) hypertension Status: Acute Assessment and Plan: Blood pressure soft Continue vital signs Will discontinue metoprolol patient will follow with primary care physician to see if antihypertension medication is needed. (7) Alcohol abuse: Code(s): F10.10 - Alcohol abuse, uncomplicated Status: Acute Assessment and Plan: Implemented alcohol withdrawal protocol Educated on cessation Patient currently consumes alcohol (8) Nicotine dependence: Code(s): F17.200 - Nicotine dependence, unspecified, uncomplicated Status: Acute Assessment and Plan: Declined nicotine patch (9) Depression: Code(s): F32.9 - Major depressive disorder, single episode, unspecified Status: Chronic Assessment and Plan: Not on any home medication (10) Tzbem-zv-pnfxhyh kidney injury: Code(s): N17.9 - Acute kidney failure, unspecified; N18.9 - Chronic kidney disease, unspecified Status: Acute Assessment and Plan: BUN 55 >44creatinine 2.62>2.02 baseline within normal limits Continue IV fluid Avoid nephrotoxic agent Renal dose medication (11) Cellulitis: Code(s): L03.90 - Cellulitis, unspecified Status: Acute Assessment and Plan: Patient is with multiple edematous with erythema areas on chest we will start doxycycline DS: Summary Hospital Course Reason for hospitalization: Hyponatremia Hospital Course: this is a 51-year-old male that presented to emergency department after a visit with his primary care physician for a generalized skin rash , at that time he was told he had low sodium. Patient has a past medical history of alcohol abuse, cirrhosis of the liver, depression, diastolic dysfunction, essential hypertension, fatty liver, IBS, and nicotine dependent. This patient has a history of cirrhosis of the liver and he continues to drink. Educated patient on cessation. Patient's sodium level remain to be low educated patient on fluid restriction also informed him that he will go home with sodium tabs. Patient did note in the past that he has had a GI doctor to manage his care but decided to no longer visit his GI doctor. He also noted that he discontinued use of all his medication because he developed diarrhea. Patient will change provider and follow-up with Dr. Silverio per patient request. Patient blood pressure is stable and more on the soft side this day of discharge did not restart metoprolol. Patient is convinced the metoprolol is a source of his diarrhea. I informed him that his primary care physician may need to start him on antihyper
--- NOTE | 2021-03-17 13:47 | PC.NURSE ---
Patient discharged at 1325 to home. Discharge instructions explained to patient. Patient voiced understanding. Patient transported out of facility via w/c and nurse assist.
--- NOTE | 2021-03-21 14:17 | PC.NURSE ---
Pt states he received and understood his discharge instructions. Pt has no other comments.
== END 2021-03-17 13:25 | disposition home or self-care (01) | DRG 426 ==
LOC: CHSED 09:43 → CHS2ND 10:02
PROVIDERS: Nurse Practitioner; Admitting Provider Emergency Medicine; Emergency Provider Emergency Medicine; PCP Nurse Practitioner Family; Visit Provider Emergency Medicine
DX: E87.1 Hypo-osmolality and hyponatremia (principal); N17.9 Acute kidney failure, unspecified; K70.31 Alcoholic cirrhosis of liver with ascites; I42.2 Other hypertrophic cardiomyopathy; I12.9 Hypertensive chronic kidney disease with stage 1 through stage 4 chronic kidney disease, or unspecified chronic kidney disease; N18.9 Chronic kidney disease, unspecified; L03.313 Cellulitis of chest wall; K58.9 Irritable bowel syndrome, unspecified; R00.0 Tachycardia, unspecified; F10.10 Alcohol abuse, uncomplicated; F17.210 Nicotine dependence, cigarettes, uncomplicated; F32.A Depression, unspecified; Z86.010 Personal history of colon polyps
CPT/HCPCS: 36415; 49083; 80048; 80053; 82140; 83735; 84443; 84484; 85027; 85610; 87426; 93005; 96360; 96361; 96372; 96374; 99285; A9270; C9803; G0378; J1650; J2930; J7030

== ENCOUNTER 2021-03-23 10:09 | Outpatient (CLI) | payer OTHER, SELFPAY ==
[2021-03-23 11:06] LABS: Alanine Aminotransferase 94 U/L (16-63); Albumin Level 2.7 g/dL (3.4-5.0); Alkaline Phosphatase 152 U/L (46-116); Anion Gap 12 mmol/L (8-16); Aspartate Amino Transferase 118 U/L (15-37); Bilirubin,Total 1.5 mg/dL (0.00-1.00); Blood Urea Nitrogen 30 mg/dL (7-18); Calcium 8.5 mg/dL (8.5-10.1); Carbon Dioxide 17 mmol/L (21-32); Chloride 94 mmol/L (98-108); Estimated Glomerular Filt Rate 52; Glucose 108 mg/dL (70-99); Osmolality Calculated 263 mOsm/kg (285-295); Sodium 123 mmol/L (136-145)
[2021-03-23 11:27] LABS: Potassium 6.7 mmol/L (3.5-5.1)
== END 2021-03-23 10:10 | disposition home or self-care (01) ==
LOC: CHSLAB 10:11
PROVIDERS: PCP Family Medicine; Visit Provider Nurse Practitioner
DX: E87.1 Hypo-osmolality and hyponatremia (principal)
CPT/HCPCS: 36415; 80053

== ENCOUNTER 2021-03-28 08:21 | Outpatient (CLI) | payer OTHER, SELFPAY ==
--- NOTE | ~2021-03-28 | US_ITS ---
EXAMINATION: US paracentesis abd w/image DATE: 03/28/2021 09:05 INDICATION: Ascites. TECHNIQUE: The procedure and its risks, benefits, and alternatives were discussed with the patient. P otential risks discussed included bleeding and infection. The skin was prepped and draped in sterile fashion. 1% lidocaine was used for local anesthesia. Under ultrasound guidance, a 5 Fr catheter with trochar was advanced into the ascites in the left lower quadrant. Fluid was aspirated. The catheter w as removed, and a dressing was applied. There were no immediate complications. FINDINGS: Ultrasound images demonstrate ascites and the catheter within the fluid. IMPRESSION: 1. Successful ultrasound-guided paracentesis yielding 5000 mL of clear, yellow fluid. Reviewed, dictated and finalized at location B. 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
== END 2021-03-28 08:22 | disposition home or self-care (01) ==
LOC: CHSIMG 08:22
PROVIDERS: PCP Family Medicine; Visit Provider Nurse Practitioner Family
DX: R18.8 Other ascites (principal)
CPT/HCPCS: 49083

== ENCOUNTER 2021-03-29 13:49 | Outpatient (CLI) | payer OTHER, SELFPAY ==
--- NOTE | ~2021-03-29 | US_ITS ---
EXAMINATION: US paracentesis abd w/image DATE: 03/29/2021 14:34 INDICATION: Ascites. TECHNIQUE: The procedure and its risks, benefits, and alternatives were discussed with the patient. P otential risks discussed included bleeding and infection. The skin was prepped and draped in sterile fashion. 1% lidocaine was used for local anesthesia. Under ultrasound guidance, a 5 Fr catheter with trochar was advanced into the ascites in the left lower quadrant. Fluid was aspirated. The catheter w as removed, and a dressing was applied. There were no immediate complications. FINDINGS: Ultrasound images demonstrate ascites and the catheter within the fluid. IMPRESSION: 1. Successful ultrasound-guided paracentesis yielding 5000 mL of clear, yellow fluid. Reviewed, dictated and finalized at location D. ER SHOP MANAGER
== END 2021-03-29 13:50 | disposition home or self-care (01) ==
LOC: CHSIMG 13:50
PROVIDERS: PCP Family Medicine; Visit Provider Nurse Practitioner Family
DX: R18.8 Other ascites (principal)
CPT/HCPCS: 49083

== ENCOUNTER 2021-04-03 09:40 | Outpatient (CLI) | payer OTHER, SELFPAY ==
[2021-04-03 10:04] LABS: Hematocrit 26.6 % (40.0-54.0); Hemoglobin 9.2 g/dL (14.0-18.0); Mean Corpuscular HGB Conc 34.6 g/dL (32.0-36.0); Mean Corpuscular Hemoglobin 35.9 pg (27.0-31.0); Mean Corpuscular Volume 103.9 fL (78.0-102.0); Mean Platelet Volume 8.7 fl (8.7-11.0); Platelet Count Result 211 K/mm3 (150-420); Red Blood Count 2.56 M/mm3 (4.70-6.10); Red Cell Distribution Width 14.9 % (11.6-14.4); White Blood Count 12.9 K/mm3 (4.8-10.8)
[2021-04-03 10:17] LABS: Alanine Aminotransferase 39 U/L (16-63); Albumin Level 2.6 g/dL (3.4-5.0); Alkaline Phosphatase 153 U/L (46-116); Ammonia 35 umol/L (11-32); Anion Gap 13 mmol/L (8-16); Aspartate Amino Transferase 40 U/L (15-37); Bilirubin,Total 1.5 mg/dL (0.00-1.00); Blood Urea Nitrogen 29 mg/dL (7-18); Calcium 8.3 mg/dL (8.5-10.1); Carbon Dioxide 19 mmol/L (21-32); Chloride 89 mmol/L (98-108); Estimated Glomerular Filt Rate 32; Glucose 96 mg/dL (70-99); Osmolality Calculated 257 mOsm/kg (285-295); Potassium 4.7 mmol/L (3.5-5.1); Sodium 121 mmol/L (136-145); Total Protein 6.6 g/dL (6.4-8.2)
[2021-04-03 10:22] LABS: INR 1.2; Prothrombin Time 12.2 Seconds (9.50-12.10)
== END 2021-04-03 09:41 | disposition home or self-care (01) ==
LOC: CHSLAB 09:41
PROVIDERS: PCP Family Medicine; Visit Provider Family Medicine
DX: K70.31 Alcoholic cirrhosis of liver with ascites (principal)
CPT/HCPCS: 36415; 80053; 82140; 85027; 85610

== ENCOUNTER 2021-04-03 14:08 | Inpatient (IN) | payer OTHER, SELFPAY ==
--- NOTE | ~2021-04-03 | XR_ITS ---
EXAMINATION: XR chest 2V EXAM DATE: 04/04/2021 17:45 INDICATION: Hyponatremia. TECHNIQUE: Frontal and lateral projections of the chest obtained and reviewed. Comparison is made to prior examination from 07/24/20. FINDINGS: Some chronic linear atelectasis or scarring. The lungs are otherwise clear. There are no pleural effusions. The cardiomediastinal silhouette is within normal limits. There is no pneumothor ax suspected. The bones and soft tissues are unremarkable. IMPRESSION: No acute cardiopulmonary findings. Reviewed, dictated and finalized at location A. [employer]
--- NOTE | ~2021-04-03 | CT_ITS ---
EXAMINATION: CT brain wo con DATE: 04/04/2021 13:09 INDICATION: Hyponatremia. TECHNIQUE: Computed tomography (CT) of the head was performed without intravenous contrast. The mA wa s adjusted according to patient size. Iterative reconstruction technique was employed. The dose-lengt h product was 983.67 mGy-cm. COMPARISON: Head CT 09/24/2016 FINDINGS: There are scattered areas of low attenuation in the cerebral white matter. There is no intr acranial hemorrhage, acute infarction, or abnormal intracranial mass lesion. The ventricles are [place] l in size. The orbits are normal. There is mucosal thickening in the paranasal sinuses. There is a sm all right mastoid effusion. IMPRESSION: 1. Mild nonspecific cerebral white matter disease, which likely represents chronic small vessel ische pan disease. Reviewed, dictated and finalized at location A. OY TENDER IMPRESSION: 1. Mild nonspecific cerebral white matter disease, which likely represents watch electrician joana small vessel ischemic disease.
--- NOTE | ~2021-04-03 | US_ITS ---
EXAMINATION: US paracentesis abd w/image DATE: 04/04/2021 13:11 INDICATION: Ascites. TECHNIQUE: The procedure and its risks, benefits, and alternatives were discussed with the patient. P otential risks discussed included bleeding and infection. The skin was prepped and draped in sterile fashion. 1% lidocaine was used for local anesthesia. Under ultrasound guidance, a 5 Fr catheter with trochar was advanced into the ascites in the left lower quadrant. Fluid was aspirated. The catheter w as removed, and a dressing was applied. There were no immediate complications. FINDINGS: Ultrasound images demonstrate ascites and the catheter within the fluid. IMPRESSION: 1. Successful ultrasound-guided paracentesis yielding 5000 mL of clear, yellow fluid. Reviewed, dictated and finalized at location A. CONSULTANT
--- NOTE | ~2021-04-03 | US_ITS ---
EXAMINATION: US renal BI DATE: 04/04/2021 13:17 INDICATION: Elevated creatinine. TECHNIQUE: Multiple ultrasound grayscale images of the kidneys were obtained. COMPARISON: CT abdomen and pelvis 11/10/2019 FINDINGS: The right kidney measures 11.1 x 6.6 x 5.2 cm. The left kidney measures 10.8 x 7.3 x 6.3 cm. The kidn eys demonstrate normal parenchymal echogenicity. There is no hydronephrosis. The bladder is decompres sed by a Thompson catheter. IMPRESSION: 1. Normal kidney sizes. No hydronephrosis. Reviewed, dictated and finalized at location A. L DEVELOPER
--- NOTE | ~2021-04-03 | US_ITS ---
EXAMINATION: US paracentesis abd w/image DATE: 04/06/2021 13:12 INDICATION: Ascites. TECHNIQUE: The procedure and its risks, benefits, and alternatives were discussed with the patient. P otential risks discussed included bleeding and infection. The skin was prepped and draped in sterile fashion. 1% lidocaine was used for local anesthesia. Under ultrasound guidance, a 5 Fr catheter with trochar was advanced into the ascites in the left lower quadrant. Fluid was aspirated. The catheter w as removed, and a dressing was applied. There were no immediate complications. FINDINGS: Ultrasound images demonstrate ascites and the catheter within the fluid. IMPRESSION: 1. Successful ultrasound-guided paracentesis yielding 5000 mL of clear, yellow fluid. Reviewed, dictated and finalized at location A. TROLESS PLATER
[2021-04-03 14:11] VITALS: BP 120/68; PULSE 107; RESP 18; TEMP 36.2; O2SAT 100
[2021-04-03 16:12] VITALS: BP 115/75; PULSE 108; RESP 18; TEMP 36.6; O2SAT 100
--- NOTE | 2021-04-03 20:29 | ED.GENADULT ---
HPI - General Adult General Chief complaint: Unspecified Stated complaint: ill be admitted Time Seen by Provider: 04/03/21 19:49 Source: patient and RN notes reviewed History of Present Illness HPI narrative: Patient is a 51 y/o male complaining of moderate to severe abdominal swelling for several days. He has no pain, vomiting or diarrhea. He states that paracentesis helps with the swelling. He also has leg swelling. He has known history alcoholic cirrhosis. Related Data Allergies Allergy/AdvReac Type Severity Reaction Status Date / Time bee venom protein (honey bee) Allergy Severe Swelling Verified 04/03/21 14:09 [bees] acetaminophen [From Percocet] AdvReac Itching Verified 04/03/21 14:09 oxycodone [From Percocet] AdvReac Itching Verified 04/03/21 14:09 Review of Systems Constitutional: Constitutional: Denies chills, Denies fever(s), Denies headache(s) and Denies weakness Eyes: Eyes: Denies blurry vision ENT: Denies headache(s) and Denies neck pain Cardiovascular: Cardiovascular: Denies chest pain and Denies dyspnea Respiratory: Respiratory: Denies cough and Denies dyspnea Gastrointestinal: Gastrointestinal: Denies abdominal pain, Denies diarrhea, Denies nausea, Denies vomiting and Reports other (swelling) Genitourinary: Genitourinary: Denies hematuria and Denies dysuria Musculoskeletal: Musculoskeletal: Denies back pain and Denies neck pain Neurologic: Denies headache(s) and Denies weakness PMFSH Past Medical History Medical History Adenomatous colon polyp Alcohol abuse Alcoholic cirrhosis of liver Anal fissure August 2016 Depression Diastolic dysfunction Noted on echocardiogram from 2016 Elevated liver function tests Esophageal varices Noted on EGD June 2020, grade 1 small barely visible varices in the distal esophagus she Essential hypertension Fatty liver Gastritis Moderate diffuse erosive gastritis and portal hypertensive changes. Hypertension Hypertrophic cardiomyopathy Noted on echocardiogram 2016 IBS (irritable bowel syndrome) Medial meniscus tear Nicotine dependence Orthostatic hypotension Tear of medial meniscus of right knee, current Tobacco dependence Surgical History Surgical History H/O knee surgery right H/O umbilical hernia repair History of colonoscopy with polypectomy August [address] Lunsford demonstrated internal hemorrhoids with stigmata of bleeding, 1 colon polyp, and acute anal fissure History of esophagogastroduodenoscopy (EGD) (06/2020) Family History Family History Father Hypertension Sibling Alcohol abuse 3 brothers Father Colon polyp Mother Colon polyp Social History Social History Social History: The patient has 3 children. He lives with a fiancee. He is a full code and states that his fiancee is a durable power cab worker for healthcare. The patient used to drink 30 beers a day on average. He states that he quit drinking alcohol in January. He states he does not go through withdrawal. Primary care provider: Dr. Esteban Grewal Code status: Full code Smoking packs per day: 1 Smoking cigarettes per day: 20.0 Years smoked: 20 Smoking pack-years: 20.00 Smoking status: Current every day smoker Tobacco type: cigarettes Second hand tobacco smoke exposure: Yes Alcohol intake: current Drinks per week: 30 Alcohol use details: He has drank alcohol to excess for at least the last 10 years. He has lost multiple jobs due to alcoholism. 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 He is currently o
--- NOTE | 2021-04-03 20:51 | ECG_ITS ---
Measurements Intervals [place] Rate: 103 P: 117 TX: 195 QRS: 168 QRSD: 77 T: 149 QT: 336 QTc: 442 Interpretive Statements SINUS TACHYCARDIA ARM LEADS REVERSED LOW VOLTAGE- DIFFUSE LEADS BASELINE ARTIFACT- I, II, III, AVR, AVL, AVF, V1, V5-V6 BORDERLINE ECG Electronically Signed On 04-04-2021 6:18:25 NEON TUBE BENDER by Aidan Lemus D.O.
[2021-04-03 22:54] VITALS: BP 97/79; PULSE 105; RESP 18; O2SAT 99
[2021-04-03 23:20] VITALS: BP 124/76; PULSE 108; RESP 14; TEMP 36.6; O2SAT 100
--- NOTE | 2021-04-03 23:44 | PM.IMHP ---
H&P: HPI History of Present Illness Date/Time: 04/03/21 22:20 Chief Complaint: Low-sodium Narrative: 51-year-old male with past medical history of COPD, diastolic dysfunction, hypertrophic cardiomyopathy, chronic hyponatremia, alcoholism, and alcoholic cirrhosis with ascites who presented to the ER from primary care physician's office due hyponatremia. The patient reports that he has recurrent ascites and has to have a paracentesis at least once a week but oftentimes twice a week. He reports that they have taken as much as 10 L off in 1 week. He reports to be taking Lasix 40 mg daily however cannot find where this medication is been refilled in recent months. He does have a prescription for metoprolol on the external med history but he denies taking metoprolol. He states he has been taking sodium chloride tablets twice a day for his chronic hyponatremia. He states that he quit drinking alcohol about 6 weeks ago. He reports chronic lower extremity and abdominal swelling ever since he was diagnosed with cirrhosis a couple of years ago. He reports that when his abdomen gets full he does develop some shortness of breath. He denies any cough or congestion. He has not had any significant any increased shortness of breath from baseline. He denies any significant cough but is a chronic smoker. He reports that he has had chronic low urine output ever since he was diagnosed with cirrhosis a couple years ago. His urine output has not changed recently. He feels like he cannot empty his bladder. He denies any dysuria, hematuria. He has not had any hematochezia or melena. He has had development of renal failure since March of 2021. The patient is not the best historian regarding his medical care. The patient when he was recently hospitalized was initially given fluids and then placed on a fluid restricted diet. His diuretics were stopped during his last hospitalization. Both interventions did not show any the patient's sodium much. His creatinine remained elevated from his baseline but his creatinine is not significantly changed compared to his prior hospital stay. The patient was treated for sinus tachycardia during his last hospitalization and was started on metoprolol however patient did not evidently filled metoprolol prescription. The patient has never followed up with Gastroenterology as outpatient but has been evaluated by Gastroenterology here multiple times. In the past he has been discharged on spironolactone metoprolol and Lasix. When he was last evaluated by GI in June of 2020 his meld score was 12 his meld score now is 26. Review of Systems Review of Systems: 12 systems were reviewed with pertinent positives and negatives per HPI. Except as documented in the HPI, all other systems were reviewed and are negative. [facility] Past Medical History Medical History (Updated 04/04/21 @ 04:02 by Jennifer Kumari DO) Adenomatous colon polyp Alcohol abuse Alcoholic cirrhosis of liver Anal fissure August 2016 Depression Diastolic dysfunction Noted on echocardiogram from 2016 Elevated liver function tests Esophageal varices Noted on EGD June 2020, grade 1 small barely visible varices in the distal esophagus she Essential hypertension Fatty liver Gastritis Moderate diffuse erosive gastritis and portal hypertensive changes. Hypertension Hypertrophic cardiomyopathy Noted on echocardiogram 2016 IBS (irritable bowel syndrome) Medial meniscus tear Nicotine dependence Orthostatic hypotension Tear of medial meniscus of right knee, current Tobacco dependence Surgical History Surgical History (Updated 04/04/21 @ 03:56 by Jennifer Kumari DO) H/O knee surgery right H/O umbilical hernia repair History of colonoscopy with polypectomy August [address] Lunsford demonstrated internal hemorrhoids with stigmata of bleeding, 1 colon polyp, and acute anal fissure History of esophagogastroduodenoscopy (EGD) (06/2020) Family History
[2021-04-03 23:58] VITALS: BMI 33.5
[2021-04-04] VITALS (8 sets, daily range): BP systolic 93–130; BP diastolic 53–85; PULSE 87–106; RESP 14–20; TEMP 35.9–36.9; O2SAT 95–100
--- NOTE | 2021-04-04 | ECHO_ITS ---
Patient Info Name: Kinsey Rivera Age: 51 years : 1970 Gender: Male Ht: 72 in Wt: 254 lbs BSA: 2.46 m2 HR: 102 bpm BP: 107 / 64 mmHg Heart Rhythm: Sinus Rhythm Technical Quality: Fair Exam Date: 04/04/2021 4:02 PM Exam Location: [facility] Card Pulmonary Patient Status: Inpatient Admit Date: 04/03/2021 Staff Ordering Physician: Ariane Rodriguez PA-C Care Process Manager: Mansi Chapman RDCS Attending Provider: Ariane Rodriguez PA-C Referring Physician: Jennifer MATHIS; Exam Type: CA echo doppler color flow Study Info Indications - Les swelling, hx cirrhosis Complete two-dimensional, color flow and Doppler transthoracic echocardiogram is performed. Summary 1. Complete two-dimensional, color flow and Doppler transthoracic echocardiogram is performed. 2. Left ventricular chamber dimension is normal. 3. Ventricular septum is sigmoid shaped. No LVOT obstruction. 4. Left ventricular systolic function is hyperdynamic, estimated at >70%. 5. There is mildly increased left ventricular wall thickness. 6. The left ventricular diastolic function is grade I diastolic dysfunction. 7. E/e' 8 is minimally elevated. 8. Left atrial chamber dimension is mildly enlarged. 9. No pulmonary hypertension, estimated pulmonary arterial systolic pressure is 13 mmHg. Left Ventricle E/e' 8 is minimally elevated. Ventricular septum is sigmoid shaped. No LVOT obstruction. Left ventricular chamber dimension is normal. Left ventricular systolic function is hyperdynamic, estimated at >70%. There is mildly increased left ventricular wall thickness. The left ventricular diastolic function is grade I diastolic dysfunction. Right Ventricle Right ventricular systolic function is normal and with normal TAPSE 2.0 cm. Right ventricular chamber dimension is normal. Left Atria Left atrial chamber dimension is mildly enlarged. Right Atria Right atrial chamber dimension is normal. Aortic Valve The aortic valve is trileaflet. There is no aortic valve stenosis. There is no aortic valve regurgitation. Pulmonic Valve There is no pulmonic regurgitation. Mitral Valve There is no mitral valve stenosis. There is no mitral valve regurgitation. Tricuspid Valve There is no tricuspid valve regurgitation. No pulmonary hypertension, estimated pulmonary arterial systolic pressure is 13 mmHg. Pericardium/Pleural There is no pericardial effusion. Inferior Vena Cava Normal inferior vena cava with >50% collapse upon inspiration consistent with normal right atrial pressure, 5 mmHg. Aorta The aortic root size at the sinus of Valsalva is normal. Left Ventricular Outflow Tract Name Value Normal LVOT 2D LVOT Diameter 2.1 cm LVOT Doppler LVOT Peak Gradient 11 mmHg LVOT Mean Gradient 7 mmHg LVOT VTI 32 cm LVOT VTI/AV VTI Ratio 0.9 LVOT Stroke Volume 111 ml LVOT CO 9.6 l/min LVOT CI 3.9 l/min/m2 Pulmonic Valve ---
--- NOTE | 2021-04-04 00:29 | PC.NURSE ---
pt was admitted through the ED at 23:02 due to severe BLE and ascites with a hx of cirrhosis. pt is alert and oriented on room air, denies pain and SOB. Pt C/O being hungry on arrival and was given a sandwich. vss were within normal limites, will continue to monitor.
[2021-04-04] MEDS: SODIUM CHLORIDE 0.9% IV 1,000 ML 75 ML IV CONT (00:42)
[2021-04-04] MEDS: FUROSEMIDE INJ 40 MG/4 ML VIAL IV PUSH (04:14)
[2021-04-04 06:01] LABS: Hematocrit 25.6 % (42.0-52.0); Hemoglobin 8.7 g/dL (14.0-18.0); Mean Corpuscular Hemoglobin 34.7 pg (26-34); Mean Platelet Volume 8.4 fl (7.4-10.4); Platelet Count Result 192 k/mm3 (150-375); Red Blood Count 2.51 M/mm3 (4.6-6.20); Red Cell Distribution Width 14.5 % (11.5-14.5); White Blood Count 9.8 K/mm3 (4.5-10.0)
[2021-04-04 06:18] LABS: Alanine Aminotransferase 33 U/L (4-50); Albumin Level 3.3 g/dL (3.5-5.1); Alkaline Phosphatase 145 U/L (38-126); Anion Gap 6 mmol/L (8-16); Aspartate Amino Transferase 49 U/L (17-59); Bilirubin,Total 1.3 mg/dL (0.2-1.3); Blood Urea Nitrogen 28 mg/dL (9-20); Calcium 8.6 mg/dL (8.4-10.2); Carbon Dioxide 20 mmol/L (22-30); Chloride 92 mmol/L (98-107); Estimated CRCL calculation 53 ml/min; Estimated Glomerular Filt Rate 37; Glucose 107 mg/dL (65-110); Potassium 4.7 mmol/L (3.4-5.0); Sodium 118 mmol/L (137-145)
[2021-04-04 08:18] LABS: INR 1.3; Prothrombin Time 15.8 Seconds (11.1-14.7)
[2021-04-04 08:19] LABS: Partial Thromboplastin Time 33.5 SECONDS (22.3-36.8)
[2021-04-04] MEDS: METOPROLOL TARTRATE 25 MG TABLET PO (08:33)
--- NOTE | 2021-04-04 10:18 | PM.CNNEP ---
Assessment and Plan Assessment and plan (1) Acute renal failure: Qualifiers: Acute renal failure type: unspecified Qualified Code(s): N17.9 - Acute kidney failure, unspecified Code(s): N17.9 - Acute kidney failure, unspecified Status: Acute Assessment and Plan: The patient has acute kidney injury. His kidney function is usually normal. In last 2 admissions his creatinine has been elevated. I suspect that this may be hemodynamic related to his liver and his diuretics. He is making some urine so I do not think he has hepatorenal syndrome. However he probably has some pre renal azotemia due to ?underfilling ?from his cirrhosis. Will evaluate this with a renal ultrasound, urine electrolytes, and a CPK. He is off of his loop diuretics right now. He is on spironolactone. We will see how he does with less intensive diuretics. (2) Acute hyponatremia: Code(s): E87.1 - Hypo-osmolality and hyponatremia Status: Acute Assessment and Plan: The patient has chronic hyponatremia. This is probably related to pre renal azotemia on a chronic basis. He does drink a lot of water he admits and so because of the pre renal azotemia has decreased free water excretion leading to the hyponatremia Hypothyroidism could contribute as well. Will recheck a TSH. He might need thyroid supplements. Will check a cortisol level as well. Will check an SPEP to be sure this is and pseudo hyponatremia but I doubt this. He does not take any medications other than diuretics which would promote the hyponatremia. There is no history of cancer. No history of CHEFS issues. Will check a head CT to be sure. Chest x-ray is okay and no history of pulmonary issues that would suggest a cause for hyponatremia. Of course beer drinkers potomania is always a possibility as well. Will see with the urine osmolality shows. Will place him on a fluid restriction and watch the sodium closely. (3) Cirrhosis of liver with ascites: Qualifiers: Hepatic cirrhosis type: alcoholic cirrhosis Qualified Code(s): K70.31 - Alcoholic cirrhosis of liver with ascites Code(s): K74.60 - Unspecified cirrhosis of liver; R18.8 - Other ascites Status: Acute Assessment and Plan: May need paracentesis soon (4) Nicotine dependence: Qualifiers: Nicotine product type: cigarettes Substance use status: uncomplicated Qualified Code(s): F17.210 - Nicotine dependence, cigarettes, uncomplicated Code(s): F17.200 - Nicotine dependence, unspecified, uncomplicated Status: Acute Assessment and Plan: He was encouraged to stop History of Present Illness Reason for Consult Consult date: 04/04/21 Chief Complaint Chief complaint: ascites,hyponatremia, lorna History of Present Illness Narrative: Kinsey is a very pleasant 51-year-old gentleman who has multiple medical problems including chronic alcohol abuse, alcoholic cirrhosis, esophageal varices, fatty liver, diastolic dysfunction, hypertension, LVH, and recent hyponatremia. The patient was in the hospital in March with hyponatremia. This is felt to be due to alcoholism. He was given fluid restrictions and furosemide and sodium tablets. He was discharged on this. His sodium at discharge was 123. He was seen by the doctor and had another set of blood work done in his sodium level is low again so he was sent to the ER. In the ER sodium was 121minutes morning it is 118 so renal consultation was requested. Looking back in the records his sodium has been in the 120s since 2019. He does not especially restrict fluids at home he says. I told him we needed to restrict fluids he was very disappointed. He says he has not been drinking alcohol for the last few weeks. He does not take narcotics. He does not take any antidepressants. He takes the Lasix as prescribed. On admission he also had an elevated creatinine. It was high in the March admission 2. It was 2.
[2021-04-04 10:44] LABS: Ammonia 34 umol/L (9-30)
[2021-04-04 10:48] LABS: Iron 57 ug/dL (49-181)
[2021-04-04 10:52] LABS: Transferrin 161 mg/dL (206-381)
[2021-04-04 11:01] LABS: Percent Iron Saturation 23 % (20-50)
[2021-04-04] MEDS: ALBUTEROL SULFATE (*SP) AEROSOL 1 PUFF 2 PUFF INHALATION (11:10)
[2021-04-04 11:51] LABS: Folic Acid 4.9 ng/mL (2.76->20)
[2021-04-04 11:53] LABS: Free T4 Free Thyroxine Reflex 1.23 ng/dL (0.78-2.19)
--- NOTE | 2021-04-04 12:06 | PM.IMPN ---
Progress Note: A&P Assessment and Plan (1) Acute renal failure: Qualifiers: Acute renal failure type: unspecified Qualified Code(s): N17.9 - Acute kidney failure, unspecified Code(s): N17.9 - Acute kidney failure, unspecified Status: Acute Assessment and Plan: Patient had recent development of renal failure his renal failure associated with his cirrhosis increased his meld score from 12-26. Will consult Gastroenterology and Nephrology. I am concerned the patient is developing hepatorenal syndrome. Creatinine was 2.1 on arrival, improved to 1.[address] patient back on spironolactone and wondering if we need further diuresis with IV Lasix given his leg swelling. Will get echocardiogram to rule out heart failure Will also place patient on a beta-leandro therapy given his sinus tachycardia. With this history of esophageal varices he may benefit from nadolol dosing instead of metoprolol dosing but will defer to Gastroenterology. Will place patient on a fluid restricted diet- 1500cc Ordered Renal US Will repeat BMP and monitor potassium and creatinine closely with diuretic therapy. (2) Chronic hyponatremia: Code(s): E87.1 - Hypo-osmolality and hyponatremia Status: Acute Assessment and Plan: Most likely chronic hyponatremia given cirrhosis. He has been prescribed sodium tablets in the past which he states he has been taking faithfully. Will hold off on sodium supplementation until discussed with Nephrology. Continue monitoring sodium every 6 hours. Nephrology consulted appreciate their input Ordered urine antigens Continue monitoring. (3) Cirrhosis of liver with ascites: Qualifiers: Hepatic cirrhosis type: alcoholic cirrhosis Qualified Code(s): K70.31 - Alcoholic cirrhosis of liver with ascites Code(s): K74.60 - Unspecified cirrhosis of liver; R18.8 - Other ascites Status: Acute Assessment and Plan: Chronic diagnosis and has been getting weekly verses 2x weekly paracentesis for his ascites. He does not have a GI specialist that he follows up with outpatient. GI has been consulted appreciate their input LFTs normal this morning Continue monitoring. (4) Macrocytic anemia: Code(s): D53.9 - Nutritional anemia, unspecified Status: Acute Assessment and Plan: Labs show worsening anemia from recent hospitalization in March 2021. Most likely secondary to worsening renal function and chronic cirrhosis Hemoglobin stable at this time at 8.7, hematocrit 25%. Ordered iron panel, vitamin B12, folic acid level, TSH for further workup Continue monitoring. No signs of acute bleeding. Transfuse as needed if less than 7. Time Spent With Patient Time with patient: 25 - 35 minutes Subjective Date/time seen: 04/04/21 12:06 Interval history: Date of service 04/04/2021: Patient is upset with his care thus far. He is not has paracentesis yet. He is hungry and thirsty. Patient reports worsening lower leg swelling over the last few weeks. Patient did quit drinking alcohol a few weeks ago and has been doing well. Denies any fever, chills, chest pain, shortness of breath, cough, nausea, vomiting, lightheadedness, dizziness, or any other symptoms at this time. Review of Systems Review of Systems: All systems reviewed & are unremarkable except as noted in HPI and below Exam Narrative: General: 51-year-old man laying flat in bed watching TV. Appears comfortable. In no acute distress. Skin: No jaundice or cyanosis. Good skin turgor. Neck: Full range of motion. Supple. Respiratory: Lungs are clear to auscultation bilaterally. No bony chest wall tenderness. Cardiovascular: The heart has a regular rate and rhythm without murmur
[2021-04-04 12:39] LABS: Total Triiodothyronine (T3) 1.12 NG/ML (0.97-1.69)
--- NOTE | 2021-04-04 13:24 | WPDGICN ---
Assessment and Plan Assessment and plan (1) Alcoholic cirrhosis of liver with ascites: Code(s): K70.31 - Alcoholic cirrhosis of liver with ascites Status: Acute Assessment and Plan: he is here with decompensated cirrhosis and recurrent ascites (non-responder to diuretics) and probably he may have component of HRS but also recently has been getting frequent paracentesis will give iv albumin and monitor renal function I do not think that will respond to diuretics, unfortunately his only option is paracentesis as needed. He was evaluated by hepatology at [facility] and thought not to be a candidate for TIPS get another paracentesis and will continue with iv albumin will discontinue b-blockers (studies showed that patients with recurrent ascites do worse on b-leandro) nutrition support, thiamine, mvi, protein shakes he will need to stop drinking altogether and then follow-up with his orthopedic physician to discuss about liver transplant for which he needs to be abstinent at least 6 months. He is fully aware that at this rate he is at high risk of complications even (2) Hyponatremia: Code(s): E87.1 - Hypo-osmolality and hyponatremia Status: Acute Assessment and Plan: continue to monitor probably need to discontinue diuretics (3) Acute renal failure: Qualifiers: Acute renal failure type: unspecified Qualified Code(s): N17.9 - Acute kidney failure, unspecified Code(s): N17.9 - Acute kidney failure, unspecified Status: Acute Assessment and Plan: monitor, nephrology on board (4) Macrocytic anemia: Code(s): D53.9 - Nutritional anemia, unspecified Status: Acute (5) Portal hypertension: Code(s): K76.6 - Portal hypertension Status: Acute Assessment and Plan: last egd found PHG and small EV, no bleeding GI Consult Note Consult date/time: 04/04/21 13:24 Reason for consult: decompensated alcoholic cirrhosis, ascites, hyponatremia HPI: Kinsey Rivera is a 51 year old male who I met when he was admitted earlier this year with decompensated cirrhosis with ascites that required paracentesis, at that time performed EGD that showed small EV and PHG, no signs of bleeding. Colonoscopy ~ 2.5 years ago. Unfortunately he has still been drinking heavily at least 12 shots daily (last time about 2 weeks ago), he was evaluated by hepatology at [facility] in [place] 11/2020. He has been getting frequent paracentesis as outpatient at least every 2 weeks, also has been using low dose of diuretics. He is here with ongoing fatigue and after Na was found to be low by pcp. Na now 118, creatinine 1.9 Review of Systems Constitutional: Constitutional: Reports fatigue Eyes: Eyes: Denies blurry vision ENT: Reports Normal hearing present Cardiovascular: Cardiovascular: Denies chest pain Respiratory: Respiratory: Denies cough Gastrointestinal: Comments: ascites Genitourinary: Genitourinary: Denies dysuria Musculoskeletal: Musculoskeletal: Denies neck pain Integumentary/Breasts: Skin/Breast: Denies dry skin Neurologic: Denies headache(s) Psychiatric: Psychiatric: Reports anxiety PMFSH Past Medical History Medical History Adenomatous colon polyp Alcohol abuse Alcoholic cirrhosis of liver Anal fissure August 2016 Depression Diastolic dysfunction Noted on echocardiogram from 2016 Elevated liver function tests Esophageal varices Noted on EGD June 2020, grade 1 small barely visible varices in the distal esophagus she Essential hypertension Fatty liver Gastritis Moderate diffuse erosive gastritis and portal hypertensive changes. Hypertension Hypertrophic cardiomyopathy Noted on echocardiogram 2016 IBS (irritable bowel syndrome) Medial meniscus tear Nicotine dependence Orthostatic hypotension Tear of medial meniscus of right knee, current Tobacco dependence Surgical History Surgical History (Reviewed 0
[2021-04-04 14:23] LABS: Creatine Kinase 37 U/L (55-170)
[2021-04-04 14:28] LABS: Sodium 117 mmol/L (137-145)
[2021-04-04] MEDS: TAMSULOSIN HCL 0.4 MG CAPSULE PO (14:53)
[2021-04-04] MEDS: ALBUMIN HUMAN 5% 25 GM/500 ML BTL IV CONT (14:55)
[2021-04-04 15:49] LABS: Add Urine Microscopic? YES; Appearance Urine Cloudy (Clear); Bacteria Urine Trace /hpf; Bilirubin Urine Negative (Negative); Blood Urine 2+ (Negative); Color Urine Yellow (Yellow); Glucose Urine UA Negative (Negative); Ketones Urine Negative (Negative); Leukocyte Esterase Ur 2+ LEU/UL (Negative); Mucus Urine Rare /lpf; Nitrate Urine Negative (Negative); Protein Urine Negative (Negative); RBC Urine 21-50 /hpf (0-2); Specific Grav Ur 1.012 (1.001-1.035); Squamous Epithelial Cell Urine Rare /hpf (Few); Urobilinogen Urine Negative mg/dL (<2.0); WBC Urine 51-75 /hpf
[2021-04-04 16:39] LABS: Free T4 Free Thyroxine Reflex 1.23 ng/dL (0.78-2.19)
[2021-04-04 16:59] LABS: Creatinine Urine 172.6 mg/dL; Creatinine Urine 173.7 mg/dL; Total Protein Urine Random 23 mg/dL; Ur Ttl Prot Creatinine Ratio 0.13 mg/mg (0-0.20)
[2021-04-04 17:22] LABS: Sodium Urine Random < 5 meq/L
[2021-04-04 18:36] LABS: Sodium 119 mmol/L (137-145)
[2021-04-04] MEDS: FUROSEMIDE 20 MG TABLET PO (18:50)
[2021-04-04] MEDS: SODIUM CHLORIDE 1 GM TABLET PO (18:50)
[2021-04-04] MEDS: DOCUSATE SODIUM 100 MG CAPSULE PO (20:07)
[2021-04-04] MEDS: PANTOPRAZOLE SODIUM IV 40 MG VIAL IV PUSH (20:07)
[2021-04-05] VITALS (12 sets, daily range): BP systolic 82–119; BP diastolic 42–74; PULSE 108–114; RESP 18–20; TEMP 35.8–36.9; O2SAT 96–99
[2021-04-05 01:07] LABS: Sodium 117 mmol/L (137-145)
[2021-04-05 06:10] LABS: Ammonia 30 umol/L (9-30)
[2021-04-05 06:22] LABS: Basophils Absolute Auto 0.1 K/mm3 (0.0-0.1); Basophils Percent Auto 0.8 % (0.2-1.2); Eosinophils Absolute Auto 0.1 K/mm3 (0-0.3); Eosinophils Percent Auto 1.8 % (0-4.4); Hemoglobin 7.3 g/dL (14.0-18.0); Immature Granulocyte Absolute 0.05 K/mm3 (0.00-0.031); Immature Granulocyte Percent A 0.8 % (0-0.5); Lymphocytes Absolute Auto 1.39 K/mm3 (0.9-3.2); Lymphocytes Percent Auto 22.5 % (18.3-44.2); Mean Corpuscular HGB Conc 34.9 g/dl (32-36); Mean Corpuscular Hemoglobin 35.6 pg (26-34); Mean Platelet Volume 8.8 fl (7.4-10.4); Monocytes Absolute Auto 0.8 K/mm3 (0.1-0.6); Monocytes Percent Auto 13.5 % (2.6-8.5); Neutrophils Absolute Auto 3.7 K/mm3 (1.3-6.7); Neutrophils Percent Auto 60.6 % (45.5-73.1); Platelet Count Result 140 k/mm3 (150-375); Red Blood Count 2.05 M/mm3 (4.6-6.20); Red Cell Distribution Width 14.3 % (11.5-14.5); White Blood Count 6.2 K/mm3 (4.5-10.0)
[2021-04-05 06:30] LABS: Alanine Aminotransferase 23 U/L (4-50); Albumin Level 2.6 g/dL (3.5-5.1); Alkaline Phosphatase 111 U/L (38-126); Anion Gap 7 mmol/L (8-16); Aspartate Amino Transferase 35 U/L (17-59); Bilirubin,Total 1.5 mg/dL (0.2-1.3); Blood Urea Nitrogen 29 mg/dL (9-20); Calcium 8.1 mg/dL (8.4-10.2); Carbon Dioxide 17 mmol/L (22-30); Chloride 95 mmol/L (98-107); Estimated CRCL calculation 59 ml/min; Estimated Glomerular Filt Rate 43; Glucose 92 mg/dL (65-110); Potassium 4.4 mmol/L (3.4-5.0); Sodium 119 mmol/L (137-145)
[2021-04-05 06:32] LABS: Hematocrit 20.9 % (42.0-52.0)
[2021-04-05] MEDS: ALBUTEROL SULFATE (*SP) AEROSOL 1 PUFF 2 PUFF INHALATION ×4 (07:58→20:22)
[2021-04-05] MEDS: THIAMINE HCL 100 MG TABLET PO (08:45)
[2021-04-05] MEDS: TAMSULOSIN HCL 0.4 MG CAPSULE PO (08:45)
[2021-04-05] MEDS: PANTOPRAZOLE SODIUM IV 40 MG VIAL IV PUSH ×2 (08:46→20:49)
[2021-04-05] MEDS: SODIUM CHLORIDE 1 GM TABLET PO ×2 (09:30→16:45)
[2021-04-05] MEDS: SODIUM BICARBONATE TAB 650 MG TABLET 1300 MG PO ×2 (09:30→16:45)
[2021-04-05] MEDS: ALBUMIN HUMAN 25% 25 GM/100 ML 100 ML IVPB ×2 (09:50→18:59)
--- NOTE | 2021-04-05 10:29 | PM.IMPN ---
Progress Note: A&P Assessment and Plan (1) Acute renal failure: Qualifiers: Acute renal failure type: unspecified Qualified Code(s): N17.9 - Acute kidney failure, unspecified Code(s): N17.9 - Acute kidney failure, unspecified Status: Acute Assessment and Plan: Patient had recent development of renal failure his renal failure associated with his cirrhosis increased his meld score from 12-26. I am concerned the patient is developing hepatorenal syndrome. Creatinine was 2.1 on arrival, improved to 1.7 today. Talked with the international flight attendant who recommended Lasix 20 mg b.i.d., and IV albumin to help with his blood pressure with the diuresis Echocardiogram showed hyperdynamic EF of 70%, diastolic grade 1 dysfunction. GI discontinue the beta-leandro given his recurrent ascites and having a negative affect Renal US showed no acute abnormality Will repeat BMP and monitor potassium and creatinine closely with diuretic therapy. (2) Chronic hyponatremia: Code(s): E87.1 - Hypo-osmolality and hyponatremia Status: Acute Assessment and Plan: Most likely chronic hyponatremia given cirrhosis. He has been prescribed sodium tablets in the past which he states he has been taking faithfully. Sodium this morning was 119 (without much change) Nephrology restarted patient's sodium chloride tablets 1 g b.i.d. Also started him sodium bicarb 1300 mg b.i.d. for acidosis on labs Nephrology started a fluid restriction of 100 cc daily and a low-sodium diet Continue monitoring sodium every 6 hours. Nephrology consulted appreciate their input Ordered urine antigens and pending Continue monitoring. (3) Cirrhosis of liver with ascites: Qualifiers: Hepatic cirrhosis type: alcoholic cirrhosis Qualified Code(s): K70.31 - Alcoholic cirrhosis of liver with ascites Code(s): K74.60 - Unspecified cirrhosis of liver; R18.8 - Other ascites Status: Acute Assessment and Plan: Chronic diagnosis and has been getting weekly verses 2x weekly paracentesis for his ascites. He does not have a GI specialist that he follows up with outpatient. GI ordered a paracentesis yesterday and he had 5 L removed Patient requesting another paracentesis for continued abdominal distension LFTs normal this morning Continue monitoring. (4) Macrocytic anemia: Code(s): D53.9 - Nutritional anemia, unspecified Status: Acute Assessment and Plan: Labs show worsening anemia from recent hospitalization in March 2021. Most likely secondary to worsening renal function and chronic cirrhosis Hemoglobin was low this morning at 7.3, hematocrit to 20%. Talked to the international flight attendant who recommended a unit of blood to be given. Will recheck H&H after unit has been given. Iron panel which was normal, vitamin B12 normal, folic acid level normal, TSH and normal Continue monitoring. No signs of acute bleeding. Transfuse as needed if less than 7. Time Spent With Patient Time with patient: 25 - 35 minutes Subjective Date/time seen: 04/05/21 10:29 Interval history: Date of service 04/05/2021: Patient states he is feeling well without any complaints. Feels better after having his paracentesis yesterday and removing 5 L from his abdomen. He is eating and drinking without any issues. He states the salt tabs caused him to have dry mouth and he ends up drinking a lot of fluids but now is on a fluid restriction. He states some improvement of his leg swelling but still has a lot. He denies any fevers, chills, chest pain, shortness of breath, cough, nausea, vomiting, abdominal pain, leg cramping, or any other symptoms at this time. Review of Systems Review of Systems: All systems reviewed & are unremarkable except as no
[2021-04-05] MEDS: SPIRONOLACTONE 25 MG TABLET PO (11:01)
[2021-04-05] MEDS: FUROSEMIDE 20 MG TABLET PO ×2 (12:20→17:22)
[2021-04-05 12:26] LABS: Sodium 120 mmol/L (137-145)
--- NOTE | 2021-04-05 13:23 | WPDGIPROGNO ---
Progress Note: A&P Assessment and Plan (1) Alcoholic cirrhosis of liver with ascites: Code(s): K70.31 - Alcoholic cirrhosis of liver with ascites Status: Acute Assessment and Plan: will order another paracentesis tomorrow and continue with iv albumin he has been getting frequent paracentesis as outpatient at [place], he also was evaluated by hepatology at [facility], he was not eligible for TIPS procedure because ongoing alcohol abuse (he claims that quit just 2 weeks ago) continue with low salt diet, currently only on low dose of diuretics (his ascites is refractory and he already has renal failure) strongly advised to continue medical care with costumed character entertainer as outpatient, if he successfully can stay abstinent then can benefit from liver transplant evaluation down the road (2) Acute renal failure: Qualifiers: Acute renal failure type: unspecified Qualified Code(s): N17.9 - Acute kidney failure, unspecified Code(s): N17.9 - Acute kidney failure, unspecified Status: Acute Assessment and Plan: iv albumin, creatinine slowly improving nephrology on board (3) Macrocytic anemia: Code(s): D53.9 - Nutritional anemia, unspecified Status: Acute Assessment and Plan: hb low, no signs of bleeding (says that brown stool) monitor (4) Chronic hyponatremia: Code(s): E87.1 - Hypo-osmolality and hyponatremia Status: Acute Assessment and Plan: low but stable (5) Portal hypertension: Code(s): K76.6 - Portal hypertension Status: Acute Subjective Date/time seen: 04/05/21 13:23 Interval history: no new events, he would like to have another paracentesis if possible Review of Systems Review of Systems: All systems reviewed & are unremarkable except as noted in HPI and below Exam Const: General: ill appearing chronically HENMT: General nose exam: Normal nares present Eyes: EOM: EOMs intact bilaterally Neck: Neck: supple Chest: Other: spider angioma in chest Resp: Auscultation: clear to auscultation bilaterally Cardio: Rate: regular rate GI: Inspection: distended GI Palp: Yes Soft to palpation and No Tenderness to palpation present (GI) Percussion: Yes Fluid wave present Auscultation: normal bowel sounds Skin: Other: telangiectasias Neuro: Speech: normal speech Motor exam (neuro): Normal motor muscle tone present throughout Extrem: Other: 3 + edema both legs Psych: Mental Status: mental status grossly normal Objective Data Vital Signs Vital Signs: Vital Signs - 24 hr 04/04/21 15:24 04/04/21 19:50 04/04/21 20:53 Temperature 97.3 F L 96.7 F L Pulse Rate 87 95 Respiratory Rate 16 18 Blood Pressure 93/53 L 110/63 Pulse Oximetry 100 99 95 04/04/21 21:33 04/05/21 05:50 04/05/21 07:58 Temperature 98.4 F 98.3 F Pulse Rate 106 H 111 H Respiratory Rate 20 20 Blood Pressure 116/68 82/42 L Pulse Oximetry 97 96 96 04/05/21 08:30 04/05/21 12:19 Temperature 98 F Pulse Rate 110 H Respiratory Rate 20 Blood Pressure 97/51 L 112/68 Pulse Oximetry 98 Intake/Output Intake/Output: Intake & Output 04/02/21 04/03/21 04/04/21 04/05/21 23:59 23:59 23:59 23:59 Intake Total 1586 120 Output Total 5560 Balance -3974 120 Meds/Results Medications: Active Medications Generic Name Dose Route Start Last Admin Trade Name Freq PRN Reason Stop Dose Admin Albuterol 2 puff 04/04/21 12:00 04/05/21 12:52 Albuterol Sulfate (*Sp) Aerosol 1 Puff INHALATION 2 puff QIDRT AYESHA Administration Docusate Sodium 100 mg 04/04/21 21:00 04/05/21 08:43 Docusate Sodium 100 Mg Capsule PO Not Given Q12HR AYESHA Furosemide 20 mg 04/04/21 17:15 04/05/21 12:20 Furosemide 20 Mg Tablet PO 20 mg BID AYESHA Administration Sodium Chloride 250 mls @ 30 mls/hr 04/05/21 08:38 Normal Saline Iv IV CONT 04/05/21 16:57 .[id number] STA Albumin Human 100 mls @ 60 mls/hr 04/05/21 09:00 04/05/21 09:
--- NOTE | 2021-04-05 14:10 | PC.NURSE ---
Called blood bank the unit of blood is not ready as of now.
[2021-04-05] MEDS: SODIUM CHLORIDE 0.9% IV 250 ML 30 ML IV CONT (17:24)
--- NOTE | 2021-04-05 18:31 | PM.PNNEP ---
Progress Note: A&P Assessment and Plan (1) Acute renal failure: Qualifiers: Acute renal failure type: unspecified Qualified Code(s): N17.9 - Acute kidney failure, unspecified Code(s): N17.9 - Acute kidney failure, unspecified Status: Acute Assessment and Plan: The patient has acute kidney injury. His kidney function is usually normal. renal ultrasound shows normal kidneys urine electrolytes show pre renal azotemia CPK is okay UA shows red cells and white cells. Cultures pending most likely he has pre renal azotemia. He is still making urine so I do not think this is hepatorenal syndrome. His blood pressure is a little bit soft. He does have swelling and ascites. I think this is all due to liver failure and 3rd spacing of fluid because of the portal hypertension and underfilling causing the renal insufficiency. Discussed with MONITORING ENGINEER Casey. With the mildly soft blood pressure, low hemoglobin, edema we decided upon giving him a blood transfusion and some albumin infusions. His creatinine is better at 1.7 today. Will repeat the labs tomorrow (2) Acute hyponatremia: Code(s): E87.1 - Hypo-osmolality and hyponatremia Status: Acute Assessment and Plan: The patient has chronic hyponatremia. This is probably related to pre renal azotemia on a chronic basis. He does drink a lot of water he admits and so because of the pre renal azotemia has decreased free water excretion leading to the hyponatremia he has acute hyponatremia as well. Pre renal azotemia is playing a role here as well as the excess water drinking. TSH is normal. Cortisol is low. Will check a Cortrosyn stim test. No history of cancer no history of MED ADMIN issues. CT brain is negative for space-occupying lesions. No history of pulmonary issues. Chest x-ray is negative. He is not on any medications that would do this. Date Sodium 04/03 121 1/4 118 then 117 then 119 1/5 119 then 120 then 121 Treatment: fluid restriction, salt tabs, diuretics, (also on sodium bicarb tabs) the lasix is only to reduced the urine osmolality to enable free water excretion, not to diurese as such. (3) Cirrhosis of liver with ascites: Qualifiers: Hepatic cirrhosis type: alcoholic cirrhosis Qualified Code(s): K70.31 - Alcoholic cirrhosis of liver with ascites Code(s): K74.60 - Unspecified cirrhosis of liver; R18.8 - Other ascites Status: Acute Assessment and Plan: May need paracentesis soon (4) Nicotine dependence: Qualifiers: Nicotine product type: cigarettes Substance use status: uncomplicated Qualified Code(s): F17.210 - Nicotine dependence, cigarettes, uncomplicated Code(s): F17.200 - Nicotine dependence, unspecified, uncomplicated Status: Acute Assessment and Plan: He was encouraged to stop (5) Hypotension: Code(s): I95.9 - Hypotension, unspecified Status: Acute Assessment and Plan: blood pressure was low this morning. No fever or elevated white count suggestive of sepsis. He does have pyuria and cultures are pending. Will add Cipro just in case. Most likely the hypotension is related to vaso dilatation in the presence of cirrhosis. The blood and albumin should be helping this. Subjective Date/time seen: 04/05/21 18:31 Interval history: Kinsey is feeling better. No chest pain or shortness of breath Review of Systems Cardiovascular: Cardiovascular: Reports no additional cardiovascular complaints Respiratory: Respiratory: Reports no additional respiratory complaints Gastrointestinal: Gastrointestinal: Reports no additional gastrointestinal complaints Genitourinary: Genitourinary: Reports no additional male genitourinary complaints Exam Narrative: WDWN in NAD skin no rash head ncat lungs clear cor reg no rub abd BS+ nontender and soft. Abdomen distended with ascites
[2021-04-05 18:36] LABS: Sodium 121 mmol/L (137-145)
[2021-04-05] MEDS: CIPROFLOXACIN 250 MG TABLET PO (20:53)
[2021-04-06 00:49] LABS: Sodium 121 mmol/L (137-145)
[2021-04-06 06:36] VITALS: BP 93/44; PULSE 113; RESP 18; TEMP 36.8; O2SAT 100
[2021-04-06 06:46] LABS: Hematocrit 23.5 % (42.0-52.0); Hemoglobin 8.3 g/dL (14.0-18.0); Mean Corpuscular HGB Conc 35.3 g/dl (32-36); Mean Corpuscular Hemoglobin 34.6 pg (26-34); Mean Corpuscular Volume 97.9 fl (80-100); Mean Platelet Volume 8.3 fl (7.4-10.4); Platelet Count Result 130 k/mm3 (150-375); Red Cell Distribution Width 15.2 % (11.5-14.5); White Blood Count 6.6 K/mm3 (4.5-10.0)
[2021-04-06 06:56] LABS: Albumin Level 3.2 g/dL (3.5-5.1); Anion Gap 8 mmol/L (8-16); Blood Urea Nitrogen 27 mg/dL (9-20); Calcium 8.5 mg/dL (8.4-10.2); Carbon Dioxide 18 mmol/L (22-30); Chloride 97 mmol/L (98-107); Estimated CRCL calculation 59 ml/min; Estimated Glomerular Filt Rate 43; Glucose 98 mg/dL (65-110); Phosphorus 2.9 mg/dL (2.5-4.5); Potassium 4.5 mmol/L (3.4-5.0); Sodium 123 mmol/L (137-145)
--- NOTE | 2021-04-06 09:30 | PM.IMPN ---
Progress Note: A&P Assessment and Plan (1) Acute renal failure: Qualifiers: Acute renal failure type: unspecified Qualified Code(s): N17.9 - Acute kidney failure, unspecified Code(s): N17.9 - Acute kidney failure, unspecified Status: Acute Assessment and Plan: Patient had recent development of renal failure his renal failure associated with his cirrhosis increased his meld score from 12-26. I am concerned the patient is developing hepatorenal syndrome. Creatinine was 2.1 on arrival, stable at 1.7 today. Talked with the plant control operator who recommended Lasix 20 mg b.i.d., and IV albumin to help with his blood pressure with the diuresis Patient also states he is not making much urine and states he might have only filled urinal up about 1/4 in the last 24 hours but urine output recorded by nursing staff says he urinated 11 150 cc yesterday which put him at a -20 cc fold balance Echocardiogram showed hyperdynamic EF of 70%, diastolic grade 1 dysfunction. Renal US showed no acute abnormality Will repeat BMP and monitor potassium and creatinine closely with diuretic therapy. (2) Chronic hyponatremia: Code(s): E87.1 - Hypo-osmolality and hyponatremia Status: Acute Assessment and Plan: Most likely chronic hyponatremia given cirrhosis. He has been prescribed sodium tablets in the past which he states he has been taking faithfully. Sodium this morning was 123, improved Nephrology restarted patient's sodium chloride tablets 1 g b.i.d. Also started him sodium bicarb 1300 mg b.i.d. for acidosis on labs Nephrology started a fluid restriction of 1000 cc daily and a low-sodium diet Continue monitoring sodium every 6 hours. Nephrology consulted appreciate their input Continue monitoring. (3) Cirrhosis of liver with ascites: Qualifiers: Hepatic cirrhosis type: alcoholic cirrhosis Qualified Code(s): K70.31 - Alcoholic cirrhosis of liver with ascites Code(s): K74.60 - Unspecified cirrhosis of liver; R18.8 - Other ascites Status: Acute Assessment and Plan: Chronic diagnosis and has been getting weekly verses 2x weekly paracentesis for his ascites. He does not have a GI specialist that he follows up with outpatient. GI ordered another paracentesis for today LFTs normal this morning Continue monitoring. (4) Macrocytic anemia: Code(s): D53.9 - Nutritional anemia, unspecified Status: Acute Assessment and Plan: Labs show worsening anemia from recent hospitalization in March 2021. Most likely secondary to worsening renal function and chronic cirrhosis Hemoglobin was low this morning at 8.3, hematocrit to 23% after 1 unit of PRBC given yesterday. Iron panel which was normal, vitamin B12 normal, folic acid level normal, TSH and normal Continue monitoring. No signs of acute bleeding. Transfuse as needed if less than 7. (5) Sinus tachycardia: Code(s): R00.0 - Tachycardia, unspecified Status: Acute Assessment and Plan: Patient has sinus tachycardia with his prior hospitalization and was started on metoprolol. GI discontinue the beta-leandro given his recurrent ascites and having a negative affect. Talked to GI today about continued sinus tachycardia and he recommends a calcium channel leandro. Will start the patient on diltiazem 30 mg every 6 hours so we can closely monitor his rate and blood pressure since it has been on the soft side. Continue monitoring. Additional Plan Time Spent With Patient Time with patient: 25 - 35 minutes Subjective Date/time seen: 04/06/21 09:30 Interval history: Date of service 04/06/2021: Patient states he is feeling well without any complaints, other gianluca
[2021-04-06] MEDS: ALBUMIN HUMAN 25% 25 GM/100 ML 100 ML IVPB ×2 (09:42→17:37)
[2021-04-06] MEDS: PANTOPRAZOLE SODIUM IV 40 MG VIAL IV PUSH ×2 (09:47→20:17)
[2021-04-06] MEDS: SPIRONOLACTONE 25 MG TABLET PO (09:48)
[2021-04-06] MEDS: SODIUM CHLORIDE 1 GM TABLET PO ×2 (09:48→17:37)
[2021-04-06] MEDS: FUROSEMIDE 20 MG TABLET PO ×2 (09:48→17:37)
[2021-04-06] MEDS: SODIUM BICARBONATE TAB 650 MG TABLET 1300 MG PO ×2 (09:49→17:37)
[2021-04-06] MEDS: THIAMINE HCL 100 MG TABLET PO (09:49)
[2021-04-06] MEDS: TAMSULOSIN HCL 0.4 MG CAPSULE PO (09:49)
[2021-04-06] MEDS: CIPROFLOXACIN 250 MG TABLET PO (09:49)
[2021-04-06] MEDS: ALBUTEROL SULFATE (*SP) AEROSOL 1 PUFF 2 PUFF INHALATION ×3 (10:12→19:34)
--- NOTE | 2021-04-06 11:00 | WPDGIPROGNO ---
Progress Note: A&P Assessment and Plan (1) Alcoholic cirrhosis of liver with ascites: Code(s): K70.31 - Alcoholic cirrhosis of liver with ascites Status: Acute Assessment and Plan: paracentesis today and continue with iv albumin he has been getting frequent paracentesis as outpatient at [place], he also was evaluated by hepatology at [facility], he was not eligible for TIPS procedure because ongoing alcohol abuse currently only on low dose of diuretics (his ascites is refractory and he already has renal failure) and iv albumin, renal function stable now strongly advised to continue medical care with flour broker as outpatient, if he successfully can stay abstinent then can benefit from liver transplant evaluation down the road (2) Acute renal failure: Qualifiers: Acute renal failure type: unspecified Qualified Code(s): N17.9 - Acute kidney failure, unspecified Code(s): N17.9 - Acute kidney failure, unspecified Status: Acute Assessment and Plan: iv albumin and midodrine added, creatinine slowly improving nephrology on board (3) Macrocytic anemia: Code(s): D53.9 - Nutritional anemia, unspecified Status: Acute Assessment and Plan: hb low, no signs of bleeding (says that brown stool) and received one unit (4) Chronic hyponatremia: Code(s): E87.1 - Hypo-osmolality and hyponatremia Status: Acute Assessment and Plan: low but stable (5) Portal hypertension: Code(s): K76.6 - Portal hypertension Status: Acute Assessment and Plan: discussed with hospitalist that patient with decompensated ascites do worse with b-leandro which was discontinued, ok to use ca-channel leandro if needed for tachycardia but monitor borderline low bp agree with midodrine Subjective Date/time seen: 04/06/21 11:00 Interval history: no changes, denies blood in stools but received one unit prbc. He will go for paracentesis later today Review of Systems Review of Systems: All systems reviewed & are unremarkable except as noted in HPI and below Exam Const: General: ill appearing chronically HENMT: General nose exam: Normal nares present Eyes: EOM: EOMs intact bilaterally Neck: Neck: supple Chest: Other: spider angioma in chest Resp: Auscultation: clear to auscultation bilaterally Cardio: Rate: regular rate GI: Inspection: distended GI Palp: Yes Soft to palpation and No Tenderness to palpation present (GI) Percussion: Yes Fluid wave present Auscultation: normal bowel sounds Skin: Other: telangiectasias Neuro: Speech: normal speech Motor exam (neuro): Normal motor muscle tone present throughout Extrem: Other: 3 + edema both legs Psych: Mental Status: mental status grossly normal Objective Data Vital Signs Vital Signs: Vital Signs - 24 hr 04/05/21 16:31 04/05/21 16:47 04/05/21 17:47 Temperature 98.2 F 98.3 F 97.8 F Pulse Rate 108 H 110 H 109 H Respiratory Rate 20 18 18 Blood Pressure 103/62 119/74 91/49 L Pulse Oximetry 99 99 98 04/05/21 19:00 04/05/21 20:27 04/05/21 20:53 Temperature 98.0 F Pulse Rate 108 H 110 H Respiratory Rate 18 18 Blood Pressure 103/62 Pulse Oximetry 99 97 97 04/05/21 22:10 04/06/21 06:36 Temperature 98.5 F 98.2 F Pulse Rate 114 H 113 H Respiratory Rate 18 18 Blood Pressure 93/53 L 93/44 L Pulse Oximetry 97 100 Intake/Output Intake/Output: Intake & Output 04/03/21 04/04/21 04/05/21 04/06/21 23:59 23:59 23:59 23:59 Intake Total 1586 1250 100 Output Total 5560 750 5400 Balance -3974 500 -5300 Meds/Results Medications: Active Medications Generic Name Dose Route Start Last Admin Trade Name Freq PRN Reason Stop Dose Admin Albuterol 2 puff 04/04/21 12:00 04/06/21 12:06 Albuterol Sulfate (*Sp) Aerosol 1 Puff INHALATION Not Given QIDRT [facility] Diltiazem HCl 30 mg 04/06/21 12:00 04/06/21 13:53 Diltiazem Hcl 30 Mg Tablet PO 30 mg Q6HR [facility] Administratio
--- NOTE | 2021-04-06 11:20 | PM.PNNEP ---
Progress Note: A&P Assessment and Plan (1) Acute renal failure: Qualifiers: Acute renal failure type: unspecified Qualified Code(s): N17.9 - Acute kidney failure, unspecified Code(s): N17.9 - Acute kidney failure, unspecified Status: Acute Assessment and Plan: The patient has acute kidney injury. His kidney function is usually normal. renal ultrasound shows normal kidneys urine electrolytes show pre renal azotemia CPK is okay UA shows red cells and white cells. Cultures pending most likely he has pre renal azotemia. the patient thinks his urine output is decreased. Intake/ output is not completely His blood pressure is a little bit soft still.. He does have swelling and ascites. I think this is all due to liver failure and 3rd spacing of fluid because of the portal hypertension and underfilling causing the renal insufficiency. Discussed with MANAGER LABOR RELATIONS Casey. With the mildly soft blood pressure, low hemoglobin, edema we decided upon giving him a blood transfusion and some albumin infusions. His creatinine is stable. With his low blood pressure and decreased urine output, will try midodrine to see if we can help both. (2) Acute hyponatremia: Code(s): E87.1 - Hypo-osmolality and hyponatremia Status: Acute Assessment and Plan: The patient has chronic hyponatremia. This is probably related to pre renal azotemia on a chronic basis. He does drink a lot of water he admits and so because of the pre renal azotemia has decreased free water excretion leading to the hyponatremia he has acute hyponatremia as well. Pre renal azotemia is playing a role here as well as the excess water drinking. TSH is normal. Cortisol is low. Will check a Cortrosyn stim test. 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 CT brain is negative for space-occupying lesions. No history of pulmonary issues. Chest x-ray is negative. He is not on any medications that would do this. Date Sodium 04/03 121 1/ 118 then 117 then 119 1/5 119 then 120 then 121 1/6 123 Treatment: fluid restriction, salt tabs, diuretics, (also on sodium bicarb tabs) (the lasix is only to reduced the urine osmolality to enable free water excretion, not to diurese as such.) (3) Cirrhosis of liver with ascites: Qualifiers: Hepatic cirrhosis type: alcoholic cirrhosis Qualified Code(s): K70.31 - Alcoholic cirrhosis of liver with ascites Code(s): K74.60 - Unspecified cirrhosis of liver; R18.8 - Other ascites Status: Acute Assessment and Plan: May need paracentesis soon (4) Nicotine dependence: Qualifiers: Nicotine product type: cigarettes Substance use status: uncomplicated Qualified Code(s): F17.210 - Nicotine dependence, cigarettes, uncomplicated Code(s): F17.200 - Nicotine dependence, unspecified, uncomplicated Status: Acute Assessment and Plan: He was encouraged to stop (5) Hypotension: Code(s): I95.9 - Hypotension, unspecified Status: Acute Assessment and Plan: blood pressure was low this morning. No fever or elevated white count suggestive of sepsis. urine culture was negative. Most likely the hypotension is related to vaso dilatation in the presence of cirrhosis. try midodrine 5 tid Subjective Date/time seen: 04/06/21 11:20 Interval history: Kinsey is feeling better. Lying in bed comfortably. no chest pain or shortness of breath swelling is a little bit better he told MANAGER LABOR RELATIONS Peludat that he made less urine overnight. Exam Narrative: WDWN in NAD skin no rash head ncat lungs clear Bilaterally cor reg no rub abd BS+ nontender and soft. Abdomen distended with ascites. ext 1+ edema. Objective Data Vital Signs Vital Signs: Vital Signs - 24 hr 04/05/21 12:19 04/05/21 14:00 04/05/21 16:31 Temperature 35.8 C L 36.8 C Pulse Rate 110 H 108 H Respirat
[2021-04-06 12:13] LABS: Sodium 124 mmol/L (137-145)
--- NOTE | 2021-04-06 12:33 | PC.NURSE ---
Pt taken off floor for paracentesis
[2021-04-06] MEDS: dilTIAZem HCL 30 MG TABLET PO ×2 (13:53→17:37)
[2021-04-06] MEDS: MIDODRINE HCL 2.5 MG TABLET 5 MG PO ×2 (13:53→17:37)
[2021-04-06 14:45] VITALS: BP 103/49; PULSE 97; RESP 18; TEMP 36.3; O2SAT 100
[2021-04-06 18:59] LABS: Albumin 2.8 g/dL (3.8-4.8); Alpha 1 Globulin 0.5 g/dL (0.2-0.3); Alpha 2 Globulin 0.6 g/dL (0.5-0.9); Beta 1 Globulin 0.5 g/dL (0.4-0.6); Protein, Total 5.7 g/dL (6.1-8.1)
[2021-04-06 19:17] LABS: Osmolality, Urine 339 mOsm/kg (50-1200)
[2021-04-06 19:34] VITALS: PULSE 95; O2SAT 94
[2021-04-06 20:10] LABS: Sodium 125 mmol/L (137-145)
[2021-04-06 20:13] VITALS: RESP 18; O2SAT 96
[2021-04-06 22:00] VITALS: BP 116/64; PULSE 94; RESP 18; TEMP 36.4; O2SAT 98
[2021-04-07] MEDS: dilTIAZem HCL 30 MG TABLET PO ×2 (00:23→05:39)
[2021-04-07 00:52] LABS: Sodium 122 mmol/L (137-145)
[2021-04-07 05:39] VITALS: BP 108/52; PULSE 106; RESP 20; TEMP 36.2; O2SAT 92
[2021-04-07 06:17] LABS: Hematocrit 23.2 % (42.0-52.0); Mean Corpuscular HGB Conc 34.5 g/dl (32-36); Mean Corpuscular Hemoglobin 34.5 pg (26-34); Mean Platelet Volume 8.8 fl (7.4-10.4); Platelet Count Result 148 k/mm3 (150-375); Red Blood Count 2.32 M/mm3 (4.6-6.20); Red Cell Distribution Width 15.2 % (11.5-14.5); White Blood Count 7.7 K/mm3 (4.5-10.0)
[2021-04-07 06:27] LABS: Alanine Aminotransferase 20 U/L (4-50); Albumin Level 3.2 g/dL (3.5-5.1); Alkaline Phosphatase 97 U/L (38-126); Anion Gap 7 mmol/L (8-16); Aspartate Amino Transferase 32 U/L (17-59); Bilirubin,Total 1.6 mg/dL (0.2-1.3); Blood Urea Nitrogen 24 mg/dL (9-20); Calcium 8.5 mg/dL (8.4-10.2); Carbon Dioxide 21 mmol/L (22-30); Chloride 95 mmol/L (98-107); Estimated CRCL calculation 59 ml/min; Estimated Glomerular Filt Rate 43; Glucose 107 mg/dL (65-110); Potassium 4.3 mmol/L (3.4-5.0); Sodium 123 mmol/L (137-145)
[2021-04-07] MEDS: ALBUTEROL SULFATE (*SP) AEROSOL 1 PUFF 2 PUFF INHALATION ×2 (07:46→12:00)
[2021-04-07 07:52] VITALS: O2SAT 95
[2021-04-07] MEDS: ALBUMIN HUMAN 25% 25 GM/100 ML 100 ML IVPB (08:40)
[2021-04-07] MEDS: MIDODRINE HCL 2.5 MG TABLET 5 MG PO ×2 (09:21→13:02)
[2021-04-07] MEDS: SODIUM BICARBONATE TAB 650 MG TABLET 1300 MG PO (09:21)
[2021-04-07] MEDS: THIAMINE HCL 100 MG TABLET PO (09:21)
[2021-04-07] MEDS: SODIUM CHLORIDE 1 GM TABLET PO (09:21)
[2021-04-07] MEDS: TAMSULOSIN HCL 0.4 MG CAPSULE PO (09:22)
[2021-04-07] MEDS: PANTOPRAZOLE SODIUM IV 40 MG VIAL IV PUSH (10:58)
[2021-04-07 11:00] VITALS: BP 106/66; PULSE 96
[2021-04-07] MEDS: SPIRONOLACTONE 25 MG TABLET PO (11:10)
[2021-04-07] MEDS: FUROSEMIDE 20 MG TABLET PO (11:10)
--- NOTE | 2021-04-07 12:19 | PM.DS ---
DS: Admitting Diagnosis Discharge Date 04/07/21 Admitting Diagnosis Abd distention, leg swelling DS: Discharge Diagnosis Discharge Diagnosis (1) Acute renal failure: Qualifiers: Acute renal failure type: unspecified Qualified Code(s): N17.9 - Acute kidney failure, unspecified Code(s): N17.9 - Acute kidney failure, unspecified Status: Acute Assessment and Plan: The patient is a 51-year-old man with a history of COPD, diastolic dysfunction, hypertrophic cardiomyopathy, chronic hyponatremia, alcoholism, and alcoholic liver cirrhosis with abdominal ascites for which she has paracentesis done 1-2x weekly, who presented to the emergency room from his primary care's office due to recurrent ascites, leg swelling, and hyponatremia. Initial labs showed stable blood pressure 120/68, heart rate tachycardic at 107, afebrile, 100% on room air. Initial labs showed leukocytosis at 12,900, macrocytic anemia with a hemoglobin of 9.2, Naranjo crit 26%, initial labs showed sodium 121, elevated creatinine at 2.1, BUN 29, acidotic with low serum bicarbonate 19, total bili slightly elevated 1.5, elevated AST of 40, elevated alk phos 153. Ammonia elevated at 35. Initial head CT showed mild nonspecific cerebral white matter disease. Patient was admitted into the hospital with a consult to GI specialty given his cirrhosis with recurrent ascites, consult Nephrology given his hyponatremia and elevated renal function. Patient had recent development of renal failure his renal failure associated with his cirrhosis increased his meld score from 12-26. I am concerned the patient is developing hepatorenal syndrome. Creatinine was 2.1 on arrival, stable at 1.7 over the last 3 days. Echocardiogram showed hyperdynamic EF of 70%, diastolic grade 1 dysfunction. Renal US showed no acute abnormality Talked with the billing services manager who recommends continuing Lasix 20 mg b.i.d., sodium bicarb to help with low sodium and acidosis, he also added midodrine 5 mg t.i.d. which has helped with his blood pressure. Will continue with a fluid restriction at 1200 mLs every 24 hours. Low-sodium diet Monitoring weights daily Will check a BMP on Saturday04/10/2021 and have him follow-up with Dr. Mills and his primary care doctor in 1 week for further evaluation of his renal function and electrolytes. Return to ER warnings given. Follow-up instructions given. The patient understands and agrees the plan all questions answered. (2) Chronic hyponatremia: Code(s): E87.1 - Hypo-osmolality and hyponatremia Status: Acute Assessment and Plan: Most likely chronic hyponatremia given cirrhosis. He has been prescribed sodium tablets in the past which he states he has been taking faithfully. Sodium this morning was stable at 123 which appears to be where he was last hospitalization month ago. Will have him follow-up with Nephrology outpatient for further sodium monitoring (3) Cirrhosis of liver with ascites: Qualifiers: Hepatic cirrhosis type: alcoholic cirrhosis Qualified Code(s): K70.31 - Alcoholic cirrhosis of liver with ascites Code(s): K74.60 - Unspecified cirrhosis of liver; R18.8 - Other ascites Status: Acute Assessment and Plan: Chronic diagnosis and has been getting weekly verses 2x weekly paracentesis for his ascites. He does not have a GI specialist that he follows up with outpatient. Patient had a total of 10 L removed from his abdomen during his hospitalization. The patient is set up to have outpatient paracentesis done at [facility]. LFTs normal this morning Given instructions by the GI specialist to see a golf ball cover treater specialist for further workup and evaluation of his cirrhosis and need for liver transplant. (4) Macrocytic anemia: Code(s): D53.9 -
[2021-04-07 12:22] VITALS: BP 120/68; PULSE 102; RESP 18; O2SAT 99
== END 2021-04-07 14:34 | disposition home or self-care (01) | DRG 469 ==
LOC: ANHED 19:49 → ANH3MED 22:13
PROVIDERS: Internal Medicine Nephrology; Physician Assistant; Admitting Provider Internal Medicine; Emergency Provider Emergency Medicine; PCP Family Medicine; Visit Provider Family Medicine
DX: N17.9 Acute kidney failure, unspecified (principal); K70.31 Alcoholic cirrhosis of liver with ascites; E87.1 Hypo-osmolality and hyponatremia; K72.90 Hepatic failure, unspecified without coma; D53.9 Nutritional anemia, unspecified; R00.0 Tachycardia, unspecified; I95.89 Other hypotension; J44.9 Chronic obstructive pulmonary disease, unspecified; K76.6 Portal hypertension; F17.210 Nicotine dependence, cigarettes, uncomplicated; E66.9 Obesity, unspecified; Z68.32 Body mass index [BMI] 32.0-32.9, adult
CPT/HCPCS: 36415; 36430; 49083; 70450; 71046; 76775; 80053; 80069; 81001; 82140; 82533; 82550; 82570; 82607; 82728; 82746; 83540; 83550; 83930; 83935; 84100; 84155; 84156; 84165; 84295; 84300; 84439; 84443; 84466; 84480; 85025; 85027; 85610; 85730; 86850; 86900; 86901; 86920; 87070; 87075; 87086; 87205; 93005; 93306; 94640; 96361; 96365; 96366; 96375; 99285; A9270; C9113; G0378; G0379; J1940; J7030; J7050; P9016; P9045; P9047

== ENCOUNTER 2021-04-18 07:33 | Outpatient (CLI) | payer OTHER, SELFPAY ==
--- NOTE | ~2021-04-18 | US_ITS ---
EXAMINATION: US paracentesis abd w/image EXAM DATE: 04/18/2021 08:44 INDICATION: Ascites TECHNIQUE: The procedure and its risks and benefits were discussed with the patient. Alternatives als o discussed. Potential risks discussed included bleeding and infection. The skin was prepped and drap ed in sterile fashion.5 mL of 1% lidocaine was used for local anesthesia. Under ultrasound guidance, a 5 Fr catheter with trochar was advanced into the ascites in the left lower quadrant. Fluid was asp irated into vacuum bottles. A total of 5 L straw colored fluid was taken in total. The catheter was removed, and a dressing was applied. There were no immediate complications. FINDINGS: Ultrasound images demonstrate ascites. IMPRESSION: Status post uneventful paracentesis. Reviewed, dictated and finalized at location G. CAL PHYSICS RESEARCHER
[2021-04-18 08:56] LABS: Anion Gap 12 mmol/L (8-16); Blood Urea Nitrogen 27 mg/dL (7-18); Calcium 8.5 mg/dL (8.5-10.1); Carbon Dioxide 22 mmol/L (21-32); Chloride 88 mmol/L (98-108); Estimated Glomerular Filt Rate 29; Glucose 117 mg/dL (70-99); Osmolality Calculated 260 mOsm/kg (285-295); Potassium 4.2 mmol/L (3.5-5.1); Sodium 122 mmol/L (136-145)
== END 2021-04-18 07:34 | disposition home or self-care (01) ==
LOC: CHSIMG 07:35
PROVIDERS: Physician Assistant; PCP Nurse Practitioner Family; Visit Provider Nurse Practitioner Family
DX: R18.8 Other ascites (principal)
CPT/HCPCS: 36415; 49083; 80048

== ENCOUNTER 2021-04-21 07:42 | Outpatient (CLI) | payer OTHER, SELFPAY ==
--- NOTE | ~2021-04-21 | US_ITS ---
EXAMINATION: US paracentesis abd w/image EXAM DATE: 04/21/2021 08:38 INDICATION: Ascites TECHNIQUE: The procedure and its risks and benefits were discussed with the patient. Alternatives als o discussed. Potential risks discussed included bleeding and infection. The skin was prepped and drap ed in sterile fashion.5 mL of 1% lidocaine was used for local anesthesia. Under ultrasound guidance, a 5 Fr catheter with trochar was advanced into the ascites in the left lower quadrant. Fluid was asp irated into vacuum bottles. A total of 5 L straw colored fluid was taken in total. The catheter was removed, and a dressing was applied. There were no immediate complications. FINDINGS: Ultrasound images demonstrate ascites. IMPRESSION: Uneventful therapeutic paracentesis yielding 5 L fluid. Reviewed, dictated and finalized at location B. KFAST SERVER
== END 2021-04-21 07:43 | disposition home or self-care (01) ==
LOC: CHSIMG 07:42
PROVIDERS: PCP Nurse Practitioner Family; Visit Provider Nurse Practitioner Family
DX: R18.8 Other ascites (principal)
CPT/HCPCS: 49083

== ENCOUNTER 2021-04-25 08:26 | Outpatient (CLI) | payer OTHER, SELFPAY ==
--- NOTE | ~2021-04-25 | US_ITS ---
EXAMINATION: US paracentesis abd w/image DATE: 04/25/2021 09:49 LATIN DANCER INDICATION: Ascites TECHNIQUE: Survey imaging of the abdomen was performed. The procedure for ultrasound-guided paracent esis and its risk and benefits were discussed with the patient. Risks included but were not limited t o pain, bleeding, and infection. The patient verbalized understanding and provided written consent. A time-out was performed to document the patient's name, date of , and site of procedure. The a bdomen was prepped and draped in usual sterile fashion. 1% lidocaine was used for local anesthesia. Utilizing ultrasound guidance, a 5 macedonian cather was advanced into pleural fluid. Aspiration was pe rformed. The patient tolerated procedure without immediate complication. Sterile bandages were applied over t he aspiration site(s).] FINDINGS: 5 L of straw-colored fluid was obtained without complication. IMPRESSION: 1. Successful ultrasound-guided paracentesis. Reviewed, dictated and finalized at location B. N DANCER
== END 2021-04-25 08:27 | disposition home or self-care (01) ==
LOC: CHSIMG 08:26
PROVIDERS: PCP Family Medicine; Visit Provider Nurse Practitioner Family
DX: R18.8 Other ascites (principal)
CPT/HCPCS: 49083

== ENCOUNTER 2021-04-28 08:30 | Outpatient (CLI) | payer OTHER, SELFPAY ==
--- NOTE | ~2021-04-28 | US_ITS ---
EXAMINATION: US paracentesis abd w/image DATE: 04/28/2021 11:05 QA TECH INDICATION: Ascites. TECHNIQUE: The procedure for an ultrasound-guided paracentesis was discussed with the patient. Risks and benefits were detailed, including risks of bleeding, infection, and pain. The patient verbalize d understanding and agreed to proceed following written consent. A time and out was performed to verify patient's name, date of , and type of procedure. The lef t lower quadrant of the abdomen was prepped and draped in usual manner. 1% lidocaine was used for lo olya anesthesia. A catheter was inserted into the right lower quadrant under ultrasound guidance into the ascitic fluid. The fluid was removed with vacuum assistance. All needles were removed. The patient tolerated the procedure without immediate complication. FINDINGS: Limited images of the abdomen demonstrates a large amount of ascites. Approximately 5000 c c of yellowish clear liquid was removed. IMPRESSION: 1. Successful ultrasound-guided paracentesis, with removal of approximately 5000 cc of fluid. Reviewed, dictated and finalized at location B. TECH IMPRESSION: 1. Successful ultrasound-guided paracentesis, with removal of approximately 50 00 cc of fluid.
== END 2021-04-28 08:31 | disposition home or self-care (01) ==
LOC: CHSIMG 08:30
PROVIDERS: PCP Family Medicine; Visit Provider Nurse Practitioner Family
DX: R18.8 Other ascites (principal)
CPT/HCPCS: 49083